=== PATIENT | female | born 1975 | race Caucasian/White ===

== ENCOUNTER 2020-07-21 07:10 | Day surgery (SDC) | payer OTHER ==
--- OUTSIDE RECORDS SUMMARY | 2020-07-21 07:13 | XMS REPORT | Continuity of Care Document ---
:1975 Author Organization [facility] t Address [address] [place] [address] Dr. Wu [address] [place] [address] Care Team Providers Name Role Phone Hoang NATARAJAN, K.H. Attending Clinician Payers Payer Name Policy Type Policy Number Effective Date Expiration Date S ource Problems This patient has no known problems. Allergies, Adverse Reactions, Alerts Allergy Allergy Status Severity Reaction(s) Onset Inactive Treating Comm ents Source Name Type Date Date Clinician erythrom DA Active MO 2018-0 [facility] [place] adhesive DA Active MO 2019-0 [facility] tape 06[facility]22 [facility] [place] pregabal DA Active MO 2018-0 [facility] in 06-22 [facility] [place] erythrom DA Active [facility] ycin 8-[facility] [place] TAPE DA Active [facility] [place] Medications This patient has no known medications. Procedures This patient has no known procedures. Encounters Start End Encounter Admission Attending Care Care Encounter Source Date/Time Date/Time Type Type Clinicians Facility Department ID 2020-07-12 2020-07-12 Telephone Hoang AZAVILA [id number] [id number] 00:00:00 00:00:00 [employer] [id number] Clear [id number] [place] [id number] Medical 0[address] Office Building Results Test Description Test Time Test Comments Results Result [facility] e Comments - PELVIS 2020-06-19 Patient Name: COMPLETE 10:52:00 YULISSA SMITH Unit No: [id number] EXAMS: CPT CODE: [id number] US PELVIS COMPLETE 57420 CLINICAL HISTORY: Left adnexal mass. COMPARISON: May 05, 2010. Patient also had recent computed tomography however, it is unavailable for comparison at this time. Real-time ultrasound examination of the pelvis was performed using transabdominal and endovaginal approach. Doppler evaluation of both ovaries was also performed. The uterus measures 6.7 x 4.3 x 4.4 cm in greatest dimensions with endometrium measuring 9 mm in AP dimension. There is no evidence of uterine fibroid or other significant uterine abnormality. The right ovary has been surgically removed. In the left adnexa, there is a 7.1 x 5.3 x 7.6 cm cystic mass with septation as well as some nodularity identified. Blood flow is identified in the left adnexa. Differential possibilities include cystic ovarian neoplasm such as cystadenoma. Possibility of complicated ovarian cyst or endometrioma cannot be categorically excluded. There is no significant free fluid in the pelvis. IMPRESSION: 1. 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 Less likely possibility would be that of complicated cyst or endometrioma. 2. Normal sonographic appearance of uterus and status post right oophorectomy. at 1052 Reported and signed by: Jak Bennett MD CC: MARYLIN DANIELS MD; Thomas Barber III, MD Technologist: Janelle Conner RDMS Probe: Trnscrbd D/ (1052) t.SDR.YOS Orig Print D/T: S: 06/19/2020 (1056) [facility] NAME: YULISSA SMITH TURLOCK Radiology Department PHYS: Thomas Plasencia III, MD [address] : 1975 AGE: 45 SEX: F [place] [address] LOC: Sánchez.RAD PHONE #: [phone] EXAM DATE: 06/19/2020 STATUS: PRE CLI FAX #: [phone] RAD NO: [id number] Page 1 Signed Report Patient Name: YULISSA SMITH Unit No: [id number] EXAMS: CPT CODE: [id number] US PELVIS COMPLETE 93116 <Continued> [facility] NAME: YULISSA SMITH MURPHY Radiology Department PHYS: Thomas Plasencia III, MD [address] : 1975 AGE: 45 SEX: F [place] [address] LOC: DayneRAD PHONE #: [phone] EXAM DATE: 06/19/2020 STATUS: PRE CLI FAX #: [phone] RAD NO: [id number] Page 2 Signed Report - DUP 2020-06-19 Patient Name: AB/PEL/SC/LTD 10:52:00 YULISSA SMITH [place]OCK Unit No: [id number] EXAMS: CPT CODE: [id number] DUP AB/PEL/SC/LTD 03394 CLINICAL HISTORY: Left adnexal mass. COMPARISON: May 05, 2010. Patient also had recent computed tomography however, it is unavailable for comparison at this time. Real-time ultrasound examination of the pelvis was performed using transabdominal and endovaginal approach. Doppler evaluation of both ovaries was also performed. The uterus measures 6.7 x 4.3 x 4.4 cm in greatest dimensions with endometrium measuring 9 mm in AP dimension. There is no evidence of uterine fibroid or other significant uterine abnormality. The right ovary has been surgically removed. In the left adnexa, there is a 7.1 x 5.3 x 7.6 cm cystic mass with septation as well as some nodularity identified. Blood flow is identified in the left adnexa. Differential possibilities include cystic ovarian neoplasm such as cystadenoma. Possibility of complicated ovarian cyst or endometrioma cannot be categorically excluded. There is no significant free fluid in the pelvis. IMPRESSION: 1. 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 Less likely possibility would be that of complicated cyst or endometrioma. 2. Normal sonographic appearance of uterus and status post right oophorectomy. at 1052 Reported and signed by: Jak Bennett MD CC: MARYLIN DANIELS MD; Thomas Barber III, MD Technologist: Janelle Conner RDMS Probe: Trnscrbd D/ (5382) t.SDR.YOS Orig Print D/T: S: 06/19/2020 (8423) [facility] NAME: MAGDAYULISSA MURPHY Radiology Department PHYS: Thomas Plasencia III, MD [address] : 1975 AGE: 45 SEX: F [place] [address] LOC: Sánchez.RAD PHONE #: [phone] EXAM DATE: 06/19/2020 STATUS: PRE CLI FAX #: [phone] RAD NO: [id number] Page 1 Signed Report Patient Name: MAGDAYULISSASEAN MURPHY Unit No: [id number] EXAMS: CPT CODE: [id number] DUP AB/PEL/SC/LTD 01511 <Continued> [facility] NAME: YULISSA SMITH Radiology Department PHYS: Thomas Plasencia III, MD [address] : 1975 AGE: 45 SEX: F [place] [address] LOC: F.RAD PHONE #: [phone] EXAM DATE: 06/19/2020 STATUS: PRE CLI FAX #: [phone] RAD NO: [id number] Page 2 Signed Report - US TRANSVAGINAL 2020-06-19 Patient Name: W/PELVIS 10:52:00 YULISSA SMITH Unit No: [id number] EXAMS: CPT CODE: [id number] US TRANSVAGINAL W/PELVIS 65324 CLINICAL HISTORY: Left adnexal mass. COMPARISON: May 05, 2010. Patient also had recent computed tomography however, it is unavailable for comparison at this time. Real-time ultrasound examination of the pelvis was performed using transabdominal and endovaginal approach. Doppler evaluation of both ovaries was also performed. The uterus measures 6.7 x 4.3 x 4.4 cm in greatest dimensions with endometrium measuring 9 mm in AP dimension. There is no evidence of uterine fibroid or other significant uterine abnormality. The right ovary has been surgically removed. In the left adnexa, there is a 7.1 x 5.3 x 7.6 cm cystic mass with septation as well as some nodularity identified. Blood flow is identified in the left adnexa. Differential possibilities include cystic ovarian neoplasm such as cystadenoma. Possibility of complicated ovarian cyst or endometrioma cannot be categorically excluded. There is no significant free fluid in the pelvis. IMPRESSION: 1. 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 Less likely possibility would be that of complicated cyst or endometrioma. 2. Normal sonographic appearance of uterus and status post right oophorectomy. at 1052 Reported and signed by: Jak Bennett MD CC: MARYLIN DANIELS MD; Thomas Barber III, MD Technologist: Janelle Conner RDMS Probe: [id number] Trnscrbd D/ (1052) t.SILVIARPhiYOS Orig Print D/T: S: 06/19/2020 (1056) [facility] NAME: YULISSA SMITH Radiology Department PHYS: Thomas Plasencia III, MD [address] : 1975 AGE: 45 SEX: F [place], [place] [address] LOC: DayneRAD PHONE #: [phone] EXAM DATE: 06/19/2020 STATUS: PRE CLI FAX #: [phone] RAD NO: [id number] Page 1 Signed Report Patient Name: YULISSA SMITH Unit No: [id number] EXAMS: CPT CODE: [id number] US TRANSVAGINAL W/PELVIS 62669 <Continued> [facility] NAME: YULISSA SMITH Radiology Department PHYS: Thomas Plasencia III, MD [address] : 1975 AGE: 45 SEX: F [place], [place] [address] LOC: DayneRAD PHONE #: [phone] EXAM DATE: 06/19/2020 STATUS: PRE CLI FAX #: [phone] RAD NO: [id number] Page 2 Signed Report OVARY W/WO 2019-07-23 TUBE,NON-NEOPLASTI 17:41:00 C ----RUN DATE: 07/26/19 [facility] PAGE 1 RUN TIME: 1455 Specimen Inquiry RUN USER: INTERFACE ----PATIENT: YULISSA SMITH LOC: DayneDSU U #: [id number] AGE/SX: 44/F ROOM: RE07[facility]22[facility]19[facility] DR: Thomas Barber III, MD : [birth year] BED: DIS: STATUS: PRE [facility] TLOC: ---- SPEC #: [id number] RECD: 07/22/19 STATUS: DELIA TEMPLETON #: [id number] HERNÁN: 07/22/19- SUBM DR: Thomas Barber III, MD ENTERED: 07/22/19 SP TYPE: EVELIN SUAZO DR: ORDERED: LEVEL IV CODES: [id number] - OVARY, NOS PROCEDURES: LEVEL IV (Incomplete) TISSUES: OVARY, NOS - RIGHT OVARY CLINICAL HISTORY 44 year old, pelvic pain, ovarian cyst (wpd) FINAL DIAGNOSIS Right ovary, oophorectomy: - ovarian parenchyma with serous cystadenofibroma CPT code(s): 08176 cooper/jayda dt: 07/23/19 GROSS DESCRIPTION ANATOMIC SOURCE OF TISSUE (per Requisition): Right ovary The specimen is received in a formalin-filled container, labeled with the patient's name and designated "right ovary". The specimen consists a 6 x 4.5 x 4.0 cm ovary with adhesed yellow fatty tissue on the surface. The ovary contains multiple off-white cysts ranging from 0.4 - 2.0 cm and containing clear or light brown, thin fluid. Several cysts contain off-white, firm, papillary lesions on the internal lining measuring up to 0.[address] sections of the cyst wall with the firm, papillary lesions are submitted in A1 - A6. hz/wpd 07/22/19 @ 1600 MICROSCOPIC DESCRIPTION The specimen consists of an ovary containing cysts and broad papillary structures lined by a single layer of serous epithelium without cytologic atypia. No atypia or malignancy is identified. cooper/jayda dt: 07/23/19 Signed Olivia Garcia 07/23/19 1741 ---- END OF REPORT UR HCG QUAL 2019-07-22 10:02:00 Test Item Value Reference Range Interpretation Comme nts UR HCG QUAL (test code = HCGQLU) NEGATIVE 1. Very dilute urine specimens, as indicated by a lowspecific gravity, may not contain rep resentative levels ofhCG. 2. False negative results may occur when the levels of hCGare below the sensitivity level of the test. If is st ill suspected, a first morningurine sp ecimen should be collected 48 ho urs later andtested. AB HIV 1 14:09:00 Test Item Value Reference Range Interpretation Comments AB HIV 1 2 (test NONREACTIVE NONREACTIVE Done by Tiffanie putnam [facility] code = [id number]) 4th Gen HIV Ag/Ab Combo Screen IS CONSENT FORM SIGNED FOR HIV TESTING? YCHEMISTRY 7 [id number] 13:12:00 Test Item Value Reference Range Interpretation Comments SODIUM (test code = NA) 142 mEq/L 135-145 N POTASSIUM (test code = K) 4.0 mEq/L 3.5-5.0 N CHLORIDE (test code = CL) 106 mEq/L 100-115 N CARBON DIOXIDE (test code = CO2) 27 mEq/L 22-31 N ANION GAP (test code = GAP) 12.70 10-20 N GLUCOSE (test code = GLU) 88 mg/dL 65-110 N BLOOD UREA NITROGEN (test code = 10 mg/dL 7-18 N BUN) GLOMERULAR FILTRATION RATE (test 68 ml/min >60 N code = GFR) CREATININE (test code = CREAT) 0.9 mg/dL 0.5-1.0 N CALCIUM (test code = CA) 8.5 mg/dL 8.4-10.2 N CBC W/AUTO [id number] 12:54:00 Test Item Value Reference Range Interpretation Comments WHITE BLOOD CELL (test code = WBC) 7.6 K/mm3 6.6-12.1 N RED BLOOD CELL (test code = RBC) 4.42 M/mm3 3.45-5.01 N HEMOGLOBIN (test code = HGB) 13.6 g/dL 10.7-13.9 N HEMATOCRIT (test code = HCT) 42.2 % 32.1-42.1 H MEAN CELL VOLUME (test code = MCV) 96 fL 84.1-94.8 H MEAN CELL HGB (test code = MCH) 30.8 pg 27-35 N MEAN CELL HGB CONCETRATION (test 32.2 gm/dL 32.2-34.1 N code = MCHC) RED CELL DISTRIBUTION WIDTH (test 12.6 % 12.4-16.5 N code = RDW) PLATELET COUNT (test code = PLT) 217 K/mm3 133-385 N IMMATURE PLATELET FRACTION (test 0.0 % 0.0-10.8 N code = IPF) MEAN PLATELET VOLUME (test code = 9.7 fl 9.1-12.7 N MPV) NEUTROPHIL % (test code = NT%) 52.8 % 56.5-79.4 L LYMPHOCYTE % (test code = LY%) 37.2 % 14.3-34.3 H MONOCYTE % (test code = MO%) 7.5 % 5.1-10.4 N EOSINOPHIL % (test code = EO%) 1.6 % 0.1-3.0 N BASOPHIL % (test code = BA%) 0.5 % 0.1-1.0 N NEUTROPHIL # (test code = NT#) 4.0 K/mm3 LYMPHOCYTE # (test code = LY#) 2.8 K/mm3 MONOCYTE # (test code = MO#) 0.6 K/mm3 EOSINOPHIL # (test code = EO#) 0.12 K/mm3 BASOPHIL # (test code = BA#) 0.0 K/mm3 RBC MORPHOLOGY REQUIRED (test code NORMAL NORMAL = RBCM) PLATELET MORPHOLOGY REQUIRED (test NORMAL NORMAL code = PLTMR) UR HCG [id number] 12:49:00 Test Item Value Reference Range Interpretation Comments UR HCG QUAL (test NEGATIVE 1. Very di lute urine code = HCGQLU) specimens, as indicated by a lowspecific g ravity, may not contain rep resentative levels ofhCG. 2 . False negative result s may occur when the levels of hCGare below the sensi tivity level of the test. If is still suspec shaka, a first morningurine sp ecimen should be colle cted 48 hours later and tested.
--- OUTSIDE RECORDS SUMMARY | 2020-07-21 07:13 | XMS REPORT | Summary of Care ---
:1975 Author Organization [facility] Address [address] [place] [address] Care Team Providers Name Role Phone Kaye Gupta MD Primary Care Provider Reason for Referral (DUARTE) Status Reason Specialty Diagnoses / Referred By Referred To Procedures Contact Contact New Request Endocrinology Diagnoses Low serum cortisol level Fatigue, unspecified type Candy Diabetes & Procedures CONSULT/REFERRAL ENDOCRINOLOGY Preferred Location: [facility] Marlee Restrepo MD [address] [place] [address] Reason for Visit Reason Comments REFERRAL Encounter Details Date Type Department Care Team Description 05/04/2020 Case Management [facility] Family Marlee Gupta , REFERRAL Medicine - Kesha NATARAJAN [address] [place] [address] Dr gregory [address] [place] [address] [place] [address] [place], [place] [phone] Allergies Active Allergy Reactions Severity Noted Date Comments Adhesive Tape-Silicones Hives 03/12/2016 Amitriptyline Other - See comments 07/20/2018 Made h eadaches worse Doxycycline Shortness of Breath 03/02/2020 Erythromycin Hives, Swelling 03/12/2016 Pregabalin Other - See comments 01/05/2017 Seirzur es Mushroom Unknown - See 01/29/2017 Allergy listed per comments nurses screen a nd pt's father - laila ag to confirm with pt, unknown reactio n. documented as of this encounter (statuses as of 05/04/2020) Medications Medication Sig Dispensed Refills Start Date End Date Status gabapentin 600 mg Take 600 mg by 0 Active tablet mouth 5 (five) times daily. albuterol 1.25 mg/3 Use 3 mL as 1 Box 11 07/02/2018 Active mL nebulizer solution directed every 6 (six) hours as needed for Wheezing. bumetanide 1 mg Take 1 tablet by 15 tablet 5 07/25/2019 Active tabletIndications: mouth every 2 Coronary artery (two) days. disease involving [place] coronary artery of [place] heart without angina pectoris, Essential hypertension, Dyslipidemia, ORTIZ (dyspnea on exertion), Family history of premature CAD diltiazem XR 120 mg Take 1 capsule by 30 capsule 11 10/07/2019 Active 24 hr capsule mouth every evening. atorvastatin 80 mg Take 1 tablet by 90 tablet 3 10/15/2019 Active tablet mouth every morning. aspirin 81 mg Take 1 tablet by 30 tablet 11 10/21/2019 Active chewable tablet mouth daily. CARTIA XT 240 mg 24 TAKE 1 CAPSULE BY 90 capsule 3 11/08/2019 Active hr capsule MOUTH EVERY MORNING HYDROcodone-acetamino TK 1 T PO BID. 0 10/22/2019 Active phen 7.5-325 mg per tablet Diclofenac Sodium 1 % BLAINE 2 GRAMS EXT AA 0 9 Active gel QID tiZANidine 4 mg TK 1 T PO TID 0 09/24/2019 Active tablet proMETHazine 25 mg TK 1 T PO Q 8 H 0 08/26/2019 Active tablet PRF NAUSEA OR VOM pantoprazole 40 mg EC 0 09/02/2019 Active tablet CLOPIDOGREL 75 mg TAKE 1 TABLET BY 90 tablet 2 11/26/2019 Active tablet MOUTH DAILY MONTELUKAST 10 mg TAKE 1 TABLET BY 30 tablet 11 11/26/2019 Active tabletIndications: MOUTH EVERY Allergic rhinitis, EVENING unspecified seasonality, unspecified trigger RANOLAZINE 1,000 mg TAKE 1 TABLET BY 60 tablet 5 11/26/2019 Active tablet MOUTH TWICE DAILY magnesium gluconate Take 27 mg by 0 Active 27 mg [place] MAGNESIUM mouth 3 (three) (MAG-G) tablet times daily. WIXELA INHUB 500-50 INHALE 1 PUFF BY 60 Each 11 12/27/2019 Active mcg/dose inhalation MOUTH EVERY 12 disk HOURS LEVALBUTEROL 0.63 USE 1 VIAL BY 75 mL 5 12/29/2019 Active mg/3 mL nebulizer NEBULATION THREE solutionIndications: TIMES DAILY Acute bacterial NEEDED FOR sinusitis, Asthmatic WHEEZING, bronchitis with acute SHORTNESS OF exacerbation, BREATH OR CHEST unspecified asthma TIGHTNESS severity, unspecified whether persistent losartan 25 mg Take 1 tablet by 90 tablet 3 01/19/2020 Active tabletIndications: mouth daily. Coronary artery disease involving [place] coronary artery of [place] heart with angina pectoris, Essential hypertension traZODone 100 mg Take one to two 180 tablet 1 01/25/2020 Active tabletIndications: tablets at night Insomnia due to as needed for medical condition insomnia diltiazem 120 mg 24 TK 1 C PO QPM 0 01/02/2020 Active hr capsule metoprolol succinate Take 1 tablet by 30 tablet 6 02/08/2020 Active XL 25 mg 24 hr mouth 2 (two) tabletIndications: times daily. Essential hypertension ISOSORBIDE TAKE 1 TABLET BY 90 tablet 0 02/17/2020 A ctive MONONITRATE 120 mg 24 MOUTH EVERY DAY IN hr tabletIndications: THE MORNING Morbid obesity with body mass index of 40.0-49.9, Coronary artery disease involving autologous artery coronary bypass graft without angina pectoris busPIRone 5 mg Take 4 tablets by 360 tablet 2 02/17/2020 Active tabletIndications: mouth three times Generalized anxiety per day disorder nitroglycerin Place 1 tablet 1 Bottle 3 02/22/2020 Active (NITROSTAT) 0.4 mg under the tongue sublingual every 5 (five) tabletIndications: minutes as needed Coronary artery for Chest pain. disease involving [place] coronary artery of [place] heart with angina pectoris TOPIRAMATE 50 mg TAKE 3 TABLETS BY 540 tablet 3 03/30/2020 Active tabletIndications: MOUTH TWICE DAILY Migraine without aura and without status migrainosus, not intractable PRIMIDONE 50 mg TAKE 1 TABLET BY 180 tablet 3 03/30/2020 Active tabletIndications: MOUTH TWICE DAILY Migraine without aura and without status migrainosus, not intractable documented as of this encounter (statuses as of 05/04/2020) Active Problems Problem Noted Date Low serum cortisol level 05/04/2020 Essential hypertension 10/30/2019 Other hyperlipidemia 10/30/2019 Vertigo 03/31/2019 Amenorrhea 02/08/2019 Trigger finger of right thumb 11/27/2018 Radial styloid tenosynovitis 11/27/2018 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 Infection of skin due to methicillin resistant Staphyl ococcus aureus 01/04/2018 (MRSA) POTS (postural orthostatic tachycardia syndrome) 12/04 TIA (transient ischemic attack) 09/27/2017 Glaucoma suspect of both eyes 03/07/2017 Congenital nasolacrimal duct obstruction, bilateral Ischemic chest pain 01/27/2017 Chest pain 01/27/2017 Colon polyps 01/04/2017 Pseudoseizures 01/04/2017 Shaking 01/04/2017 Depression 01/04/2017 Insomnia 01/01/2017 JOSE on CPAP 01/01/2017 Morbid obesity with body mass index of 40.0-49.9 11/13 CAD (coronary artery disease) Spinal stenosis Atherosclerosis of artery Bulging lumbar disc DC (mitral incompetence) Polycystic ovarian disease GERD (gastroesophageal reflux disease) Anxiety Agoraphobia Panic disorder HTN (hypertension) Gastric polyp Asthma Overview: As a child Allergic rhinitis documented as of this encounter (statuses as of 05/04/2020) Resolved Problems Problem Noted Date Resolved Date Nicotine use disorder 02/08/2019 04/20/2019 Overview: vaping Postprandial vomiting 01/04/2017 01/19/2018 documented as of this encounter (statuses as of 05/04/2020) Immunizations Name Administration Dates Next Due Influenza Virus Vaccine Quad IM 3+ YRS 10/26/2018 Influenza Virus Vaccine Quad IM Multi-dose 6+ MO 09/10/2017 Pneumococcal Polysaccharide, PPSV23 (PNEUMOVAX) 01/09/2017 TDAP (ADACEL) VACCINE 01/09/2017 documented as of this encounter Social History Tobacco Use Types Packs/Day Years Used Date Former Smoker Cigarettes 0.5 15 Quit: 01/2017 Smokeless Tobacco: Never Used Qu it: 11/30/2014 Comments: quit tobacco in 03/2018, quit v aping too 03/2019 Alcohol Use Drinks/Week oz/Week Comments No 0 Standard drinks or equivalent 0.0 Sex Assigned at Date Recorded Not on file Job Start Date Occupation Industry Not on file Not on file Not on file Travel History Travel Start Travel End No recent travel history available. COVID-19 Exposure Response Date Recorded In the last month, have you been in contact with No / Unsure 05/02/2020 1:55 PM CDT someone who was confirmed or suspected to have Coronavirus / COVID-19? documented as of this encounter Last Filed Vital Signs Not on filedocumented in this encounter Plan of Treatment Date Type Specialty Care Team Description 06/15/2020 Office Visit Pulmonary Disease Nino Bennett, DO [address] [place] [address] 06/16/2020 Office Visit Cardiology Justo Bolton MD [address] [place], [place] [address] 07/06/2020 Office Visit Neurology Anum Connor A [address] [place] [address] [phone] 08/16/2020 Office Visit Obstetrics & Gynecology Marco Antonio Robledo MD [address] [facility] [address] [place], [place] [address] Health Maintenance Due Date Last Done Comments Breast Cancer Screening (MAMMOGRAM) 02/23/2020 02/22/2019, 02/20/2018, 01/17/2017 PAP SMEAR 06/21/2020 06/21/2019, 06/21/2019, 08/01/2016 (Previously completed) INFLUENZA VACCINE (Season Ended) 2020 10/26/2018, 10/2017 Depression Screening 04/19/2021 04/19/2020, 12/23/2019 DTaP,Tdap,and Td Vaccines (2 - Td) 01/09/2027 01/09/2017 PNEUMOCOCCAL 0-64 YEARS COMBINED Completed 01/09/2017 SERIES documented as of this encounter Goals Goal Patient Goal Associated Recent Patient-Stated? Author Type Problems Progress 5 lb weight General Yes [place], loss by next Marlee Restrepo MD visit documented as of this encounter Results Not on filedocumented in this encounter Visit Diagnoses Diagnosis Low serum cortisol level - Primary Glucocorticoid deficiency Fatigue, unspecified type documented in this encounter Insurance Payer Benefit Plan Subscriber ID Effective Phone Address Typ e / Group Dates AETNA - AETNA [id number] 2019-Prese [address] Me dicare Adv [place]NAGED MEDICARE [place]V [place] [id number] [place] [address] documented as of this encounter
--- OUTSIDE RECORDS SUMMARY | 2020-07-21 07:14 | XMS REPORT | Summary of Care ---
:1975 Author Organization [facility] Address [address] [place] [id number] Care Team Providers Name Role Phone Kaye Gupta MD Primary Care Provider Reason for Visit Reason Comments Appointment sooner appt / hfu Encounter Details Date Type Department Care Team Description 04/28/2020 Telephone [facility] Anum Connor A NP Appointment (sooner Neurology, [address] appt / hfu) [address], [address] [place] [address] [place] [address] Allergies Active Allergy Reactions Severity Noted Date Comments Adhesive Tape-Silicones Hives 03/12/2016 Amitriptyline Other - See comments 07/20/2018 Made h eadaches worse Doxycycline Shortness of Breath 03/02/2020 Erythromycin Hives, Swelling 03/12/2016 Pregabalin Other - See comments 01/05/2017 Seirzur es Mushroom Unknown - See 01/29/2017 Allergy listed per comments nurses screen a nd pt's father - u nable to confirm with pt, unknown reactio n. documented as of this encounter (statuses as of 05/05/2020) Medications Medication Sig Dispensed Refills Start Date [...] 2 Coronary artery (two) days. disease involving [place] coronary artery of [place] heart without angina pectoris, Essential hypertension, Dyslipidemia, [...] 27 mg by 0 Active 27 mg JACKSON MAGNESIUM mouth 3 (three) (MAG-G) tablet times [...] tabletIndications: mouth daily. Coronary artery disease involving [place] coronary artery of [place] heart with angina pectoris, Essential hypertension traZODone [...] Coronary artery for Chest pain. disease involving [place] coronary artery of [place] heart with angina pectoris TOPIRAMATE 50 mg TAKE 3 TABLETS BY 540 tablet 3 03/30/2020 Active tabletIndications: MOUTH TWICE DAILY Migraine without aura and without status migrainosus, not intractable PRIMIDONE 50 mg TAKE 1 TABLET BY 180 tablet 3 03/30/2020 Active tabletIndications: MOUTH TWICE DAILY Migraine without aura and without status migrainosus, not intractable documented as of this encounter (statuses as of 05/05/2020) Active Problems Problem Noted Date Low serum [...] stenosis Atherosclerosis of artery Bulging lumbar disc NE (mitral incompetence) Polycystic ovarian disease GERD (gastroesophageal reflux disease) Anxiety Agoraphobia Panic disorder HTN (hypertension) Gastric polyp Asthma Overview: As a child Allergic rhinitis documented as of this encounter (statuses as of 05/05/2020) Resolved Problems Problem Noted Date Resolved Date Nicotine use disorder 02/08/2019 04/20/2019 Overview: vaping Postprandial vomiting 01/04/2017 01/19/2018 documented as of this encounter (statuses as of 05/05/2020) Immunizations Name Administration Dates Next Due Influenza [...] Treatment Date Type Specialty Care Team Description 05/08/2020 Office Visit Endocrinology Diabetes & Landy aBtes MD Metabolism [address] [facility] [address] [place], [place] [address] [phone] 06/15/2020 Office Visit Pulmonary Disease Nino Bennett, DO [address] [place] [phone] 06/16/2020 Office Visit Cardiology Justo Bolton MD [address] [facility] [address] [place] [address] [place] [phone] 07/06/2020 Office Visit Neurology Anum Connor A [address] [phone] 08/16/2020 Office Visit Obstetrics & Gynecology Marco Antonio Robledo MD [address] [facility] [address] [place], [place] [address] Health Maintenance Due Date Last Done [...] Problems Progress 5 lb weight General Yes Candy, loss by next Marlee Restrepo MD visit documented as of this encounter Results Not on filedocumented in this encounter Insurance Payer Benefit Plan Subscriber ID Effective Phone Address Typ e / Group Dates AETNA - AETNA [id number] 2019-Jose [address] Me ahn Adv MANAGED MEDICARE ADV [place] [id number] [place] [address] documented as of this encounter
--- OUTSIDE RECORDS SUMMARY | 2020-07-21 07:14 | XMS REPORT | Summary of Care ---
:1975 Author Organization [facility] Address [address] [place] [address] Care Team Providers Name Role Phone Kaye Gupta MD Primary Care Provider Reason for Visit Reason Comments New Patient pt confirm all meds and phar yamilet. pt stated hair falling, dizzy, requesting for erika, pt s tated manpreet diagnosed and been taking to many other meds and would like to check kidney, (DUARTE) Status Reason Specialty Diagnoses / Referred By Referred To Procedures Contact Contact Authorized Endocrinology Diagnoses Low serum cortisol level Fatigue, unspecified type Candy Diabetes & Procedures CONSULT/REFERRAL ENDOCRINOLOGY Preferred Location: [facility] Marlee Restrepo MD Metabolism [address] [place] [address] [place] [address] Encounter Details Date Type Department Care Team Description 05/08/2020 Office Visit [facility] Landy Bates Hypocortisol emia (Primary Dx); EndocrinologyKaye MD Hair loss; [facility] [address], Fatigue, unspecified type; [address], [facility] [address] Prinzmetal variant angina [address] [place] [address] [place], [place] [phone] Allergies Active Allergy Reactions Severity Noted Date Comments Adhesive Tape-Silicones Hives 03/12/2016 Amitriptyline Other - See comments 07/20/2018 Made h eadaches worse Doxycycline Shortness of Breath 03/02/2020 Erythromycin Hives, Swelling 03/12/2016 Pregabalin Other - See comments 01/05/2017 Seirzur chantel Mushroom Unknown - See 01/29/2017 Allergy listed per comments nurses screen a nd pt's father - laila ag to confirm with pt, unknown reactio n. documented as of this encounter (statuses as of 05/08/2020) Medications Medication Sig Dispensed Refills Start Date [...] 2 Coronary artery (two) days. disease involving [place] coronary artery of [place] heart without angina pectoris, Essential hypertension, Dyslipidemia, [...] 11 10/21/2019 Active chewable tablet mouth daily. HYDROcodone-acetamino TK 1 T PO BID. 0 [...] 27 mg by 0 Active 27 mg MARSHALL MAGNESIUM mouth 3 (three) (MAG-G) tablet times [...] tabletIndications: mouth daily. Coronary artery disease involving [place] coronary artery of [place] heart with angina pectoris, Essential hypertension traZODone [...] Coronary artery for Chest pain. disease involving [place] coronary artery of [place] heart with angina pectoris TOPIRAMATE 50 mg TAKE 3 TABLETS BY 540 tablet 3 03/30/2020 Active tabletIndications: MOUTH TWICE DAILY Migraine without aura and without status migrainosus, not intractable PRIMIDONE 50 mg TAKE 1 TABLET BY 180 tablet 3 03/30/2020 Active tabletIndications: MOUTH TWICE DAILY Migraine without aura and without status migrainosus, not intractable CARTIA XT 240 mg 24 TAKE 1 CAPSULE BY 90 capsule 1 05/05/2020 Active hr capsule MOUTH EVERY MORNING documented as of this encounter (statuses as of 05/08/2020) Active Problems Problem Noted Date Low serum [...] with body mass index of 40.0-49.9 11/13 Prinzmetal variant angina 12/01/2015 CAD (coronary artery disease) Spinal stenosis Atherosclerosis of artery Bulging lumbar disc ME (mitral incompetence) Polycystic ovarian disease GERD (gastroesophageal reflux disease) Anxiety Agoraphobia Panic disorder HTN (hypertension) Gastric polyp Asthma Overview: As a child Allergic rhinitis documented as of this encounter (statuses as of 05/08/2020) Resolved Problems Problem Noted Date Resolved Date Nicotine use disorder 02/08/2019 04/20/2019 Overview: vaping Postprandial vomiting 01/04/2017 01/19/2018 documented as of this encounter (statuses as of 05/08/2020) Immunizations Name Administration Dates Next Due Influenza [...] been in contact with No / Unsure 05/08/2020 2:36 PM CDT someone who was confirmed or suspected to have Coronavirus / COVID-19? documented as of this encounter Last Filed Vital Signs Vital Sign Reading Time Taken Comments Blood Pressure 122/85 05/08/2020 3:15 PM CDT Pulse 67 05/08/2020 3:13 PM CDT Temperature 36.7 C (98 F) 05/08/2020 3:13 PM CDT Respiratory Rate - - Oxygen Saturation 99% 05/08/2020 3:13 PM CDT Inhaled Oxygen Concentration - - Weight 113.9 kg (251 lb) 05/08/2020 3:13 PM CDT Height 152.4 cm (5') 05/08/2020 3:13 PM CDT Body Mass Index 49.02 05/08/2020 3:13 PM CDT documented in this encounter Progress Notes Landy Bates MD - 05/08/2020 3:00 PM CDT Cc: Chief Complaint Patient presents with New Patient pt confirm all meds and pharmacy. pt stated hair falling, dizzy, requesting for erika, pt statedben diagnosed and been taking to many other meds and would like to check kidney, Yanci Man is a 44 year old female. Patient known for hypertension, asthma, depression and obesity had a recent head trauma complain of extreme fatigue, sudden scalp hair loss, her menstrual cycles are regular. She is on multiple medications under multiple physician care. Allergies Yanci is allergic to adhesive tape-silicones; amitriptyline; doxycycline; erythromycin; lyrica [pregabalin]; and mushroom. Medications Outpatient Medications Prior to Visit Medication Sig Dispense Refill CARTIA XT 240 mg 24 hr capsule TAKE 1 CAPSULE BY MOUTH EVERY MORNING 90 capsule 1 PRIMIDONE 50 mg tablet TAKE 1 TABLET BY MOUTH TWICE DAILY 180 tablet 3 TOPIRAMATE 50 mg tablet TAKE 3 TABLETS BY MOUTH TWICE DAILY 540 tablet 3 nitroglycerin (NITROSTAT) 0.[address] 1 tablet under the tongue every 5 (five) minutes as needed for Chest pain. 1 Bottle 3 busPIRone 5 mg tablet Take 4 tablets by mouth three times per day 360 tablet 2 ISOSORBIDE MONONITRATE 120 mg 24 hr tablet TAKE 1 TABLET BY MOUTH EVERY DAY IN THE MORNING 90 tablet 0 metoprolol succinate XL 25 mg 24 hr tablet Take 1 tablet by mouth 2 (two) times daily. 30 tablet6 diltiazem 120 mg 24 hr capsule TK 1 C PO QPM traZODone 100 mg tablet Take one to two tablets at night as needed for insomnia 180 tablet 1 losartan 25 mg tablet Take 1 tablet by mouth daily. 90 tablet 3 LEVALBUTEROL 0.63 mg/3 mL nebulizer solution USE 1 VIAL BY NEBULATION THREE TIMES DAILY NEEDED FOR WHEEZING, SHORTNESS OF BREATH OR CHEST TIGHTNESS 75 mL 5 WIXELA INHUB 500-50 mcg/dose inhalation disk INHALE 1 PUFF BY MOUTH EVERY 12 HOURS 60 Each 11 magnesium gluconate 27 mg MARSHALL MAGNESIUM (MAG-G) tablet Take 27 mg by mouth 3 (three) times daily. CLOPIDOGREL 75 mg tablet TAKE 1 TABLET BY MOUTH DAILY 90 tablet 2 MONTELUKAST 10 mg tablet TAKE 1 TABLET BY MOUTH EVERY EVENING 30 tablet 11 RANOLAZINE 1,000 mg tablet TAKE 1 TABLET BY MOUTH TWICE DAILY 60 tablet 5 Diclofenac Sodium 1 % gel BLAINE 2 GRAMS EXT AA QID 0 HYDROcodone-acetaminophen 7.5-325 mg per tablet TK 1 T PO BID. 0 pantoprazole 40 mg EC tablet 0 proMETHazine 25 mg tablet TK 1 T PO Q 8 H PRF NAUSEA OR VOM 0 tiZANidine 4 mg tablet TK 1 T PO TID 0 aspirin 81 mg chewable tablet Take 1 tablet by mouth daily. 30 tablet 11 atorvastatin 80 mg tablet Take 1 tablet by mouth every morning. 90 tablet 3 diltiazem XR 120 mg 24 hr capsule Take 1 capsule by mouth every evening. 30 capsule 11 bumetanide 1 mg tablet Take 1 tablet by mouth every 2 (two) days. 15 tablet 5 albuterol 1.25 mg/3 mL nebulizer solution Use 3 mL as directed every 6 (six) hours as needed forWheezing. 1 Box 11 gabapentin 600 mg tablet Take 600 mg by mouth 5 (five) times daily. No facility-administered medications prior to visit. Histories Past Medical History: Diagnosis Date Allergic rhinitis Amenorrhea 02/08/2019 Anemia Asthma As a child CAD (coronary artery disease) Depression Endometriosis GERD (gastroesophageal reflux disease) HTN (hypertension) Hyperlipidemia Infection of skin due to methicillin resistant Staphylococcus aureus (MRSA) 01/04/2018 Leiomyoma of uterus ME (mitral incompetence) 2014 JOSE (obstructive sleep apnea) Panic disorder Pap smear abnormality of cervix 1999 s/p LEEP PCOS (polycystic ovarian syndrome) POTS (postural orthostatic tachycardia syndrome) 12/04/2017 Prediabetes 01/23/2018 Prinzmetal angina Seizures Spinal stenosis Urinary incontinence stress incont only Past Surgical History: Procedure Laterality Date ABDOMINAL SCAR REVISION 1997 repair and tummy tuck SECTION [id number] COLONOSCOPY 10/25/2019 COLPOSCOPY,CERVIX W/ADJ VAG,W/LOOP BX CONIZATION CERVIX,LOOP ELECTRD 1999 DEQUERVAIN'S CONTRACTURE RELEASE Right 02/26/2019 Surgeon: Thomas Ware MD; [facility] DILATION AND CURETTAGE (SHX) 1997 DRAIN OVARIAN ABSCESS,ABD APPRCH ENDOSCOPIC CARPAL TUNNEL RELEASE Right 02/26/2019 Surgeon: Thomas Ware MD; Location: [facility] ESOPHAGOGASTRODUODENOSCOPY HERNIA REPAIR Right 2004 LAPAROSCOPIC ADJUSTABLE GASTRIC BANDING 01/2000 LAPAROSCOPIC GASTRIC BAND REMOVAL 2017 OPEN CARPAL TUNNEL RELEASE Left 04/06/2018 Surgeon: Gautam Zamorano MD; Location: [facility] CO PATIENT HAS A CORONARY ARTERY STENT 2015 x 3 TEAR DUCT SYSTEM SURG UNLISTED TENDON REPAIR Right ankle TRIGGER FINGER RELEASE Right 02/26/2019 Surgeon: Thomas Ware MD; Location: [facility] Social History Socioeconomic History Marital status: Spouse name: Gene Number of children: 1 Years of education: 16 Highest education level: Not on file Occupational History 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 Social Needs Financial resource strain: Not on file Food insecurity: Worry: Not on file Inability: Not on file Transportation needs: Medical: Not on file Non-medical: Not on file Tobacco Use Smoking status: Former Smoker Packs/day: 0.50 Years: 15.00 Pack years: 7.50 Types: Cigarettes Last attempt to quit: 01/2017 Years since quittin.3 Smokeless tobacco: Never Used Tobacco comment: quit tobacco in 03/2018, quit vaping too 03/2019 Substance and Sexual Activity Alcohol use: No Alcohol/week: 0.0 standard drinks Drug use: No Sexual activity: Yes Partners: Male control/protection: None Comment: last intercourse in january 2019 Lifestyle Physical activity: Days per week: Not on file Minutes per session: Not on file Stress: Not on file Relationships Social connections: Talks on phone: Not on file Gets together: Not on file Attends adventism service: Not on file Active member of club or organization: Not on file Attends meetings of clubs or organizations: Not on file Relationship status: Not on file Intimate partner violence: Fear of current or ex partner: Not on file Emotionally abused: Not on file Physically abused: Not on file Forced sexual activity: Not on file Other Topics Concern Service Not Asked Blood Transfusions Not Asked Caffeine Concern Not Asked Occupational Exposure Not Asked Hobby Hazards Not Asked Sleep Concern Not Asked Stress Concern Not Asked Weight Concern Not Asked Special Diet Not Asked Back Care Not Asked Exercise Not Asked Bike Helmet Not Asked Seat Belt Yes Self-Exams Not Asked Social History Narrative Lives at home with Christianity Preference: Roman Catholic Family History Problem Relation Age of Onset Cancer Maternal Aunt ovarian, breast x's 2 Breast Cancer Maternal Aunt 40s, unilateral. Recurrence in 50s Ovarian Cancer Maternal Aunt same aunt who has breast cancer, 40s Arthritis Mother Asthma Mother Cancer Mother colon Depression Mother Hypertension Mother Kidney disease Mother Miscarriages / Stillbirths Mother Stroke Mother Thyroid Mother Uterine Cancer Mother 40s Colon Cancer Mother 40s, recurrence in 60s Coronary Heart Disease Father Diabetes Father Heart Father Cancer Maternal Grandmother Asthma Maternal Grandmother Arthritis Maternal Grandmother Cataracts Maternal Grandmother Breast Cancer Maternal Grandmother Diabetes Paternal Grandmother Cancer Paternal Grandfather Coronary Heart Disease Paternal Grandfather Stroke Paternal Grandfather Cataracts Maternal Grandfather defects NoFHx Genetic NoFHx High cholesterol NoFHx Mental retardation NoFHx Neurological NoFHx Osteoporosis NoFHx Psychiatry NoFHx Other - see comments NoFHx Review of Systems Constitutional: Positive for fatigue and weight gain. HENT: Negative. Eyes: Negative. Respiratory: Negative. Cardiovascular: Negative. Gastrointestinal: Negative. Musculoskeletal: Positive for back pain. Skin: Negative. Neurological: Negative. Psychiatric/Behavioral: Negative. Endocrine: Endocrine negativePositive for weight gain. Vital Signs BP 122/85 (BP Location: Left arm) | Pulse 67 | Temp 36.7 C (98 F) | Ht 5' (1.524 m) | Wt 251lb (113.9 kg) | LMP 04/10/2020 (Approximate) | SpO2 99% | BMI 49.02 kg/m Physical Exam Constitutional: She is oriented to person, place, and time. She appears well- developed and well-nourished. Eyes: Pupils are equal, round, and reactive to light. Conjunctivae and EOM are normal. Left eye exhibits no discharge. No scleral icterus. Neck: Normal range of motion. Neck supple. No JVD present. No tracheal deviation present. No thyromegaly present. Cardiovascular: Normal rate, regular rhythm, normal heart sounds and intact distal pulses. Exam reveals no gallop and no friction rub. No murmur heard. Pulmonary/Chest: Effort normal and breath sounds normal. No respiratory distress. She has no wheezes. She has no rales. She exhibits no tenderness. Abdominal: Soft. Bowel sounds are normal. She exhibits no distension and no mass. There is no tenderness. There is no rebound and no guarding. No hernia. Musculoskeletal: Normal range of motion. She exhibits no edema, tenderness or deformity. Lymphadenopathy: She has no cervical adenopathy. Neurological: She is alert and oriented to person, place, and time. She displays normal reflexes. Nocranial nerve deficit or sensory deficit. She exhibits normal muscle tone. Coordination normal. Skin: Skin is warm and dry. Capillary refill takes less than 2 seconds. No rash noted. No erythema. No pallor. Psychiatric: She has a normal mood and affect. Her behavior is normal. Judgment and thought content normal. Assessment/Plan Yanci was seen today for new patient. Diagnoses and all orders for this visit: Hypocortisolemia - ADRENOCORTICOTROPIC HORMONE; Future Hair loss - HEPATIC FUNCTION PANEL (99740) (ALB,T.PRO,BILI T,BU/BC,ALT,AST,ALK PHOS); Future - IRON; Future - HEAVY METALS PANEL, BLOOD; Future Fatigue, unspecified type - SEDIMENTATION RATE; Future - CREATINE KINASE; Future - URIC ACID; Future Prinzmetal variant angina - METANEPHRINES, PLASMA; Future Patient for ACTH Stim test. documented in this encounter Plan of Treatment Date Type Specialty Care Team Description 05/09/2020 Office Visit Neurology Aunm Connor A [address] [phone] 05/11/2020 Nurse Visit Endocrinology Diabetes & Nurse, Bls Cbc E ndo Metabolism 05/22/2020 Office Visit Endocrinology Diabetes & Kirill Vasquez, FRUIT [employer] FARMWORKER Metabolism [address] [place] [phone] 06/15/2020 Office Visit Pulmonary Disease Nino Bennett, DO [address] [place] [phone] 06/16/2020 Office Visit Cardiology Justo Bolton MD [address] [place] [address] [place] [address] [phone] 07/06/2020 Office Visit Neurology Anum Connor A NP [address] [place] [phone] 08/16/2020 Office Visit Obstetrics & Gynecology Mraco Antonio Robledo MD [address] [place] [address] [place] [address] 15 Name Type Priority Associated Diagnoses Order S chedule ADRENOCORTICOTROPIC HORMONE LAB Routine Hypocortisole norman Expected: 05/09/2020, Expires: 05/08/2021 METANEPHRINES, PLASMA LAB Routine Prinzmetal variant angina Expected: 05/09/2020, Expires: 05/08/2021 SEDIMENTATION RATE LAB Routine Fatigue, unspecified t ype Expected: 05/09/2020, Expires: 05/08/2021 CREATINE KINASE LAB Routine Fatigue, unspecified type Expected: 05/09/2020, Expires: 05/08/2021 URIC ACID LAB Routine Fatigue, unspecified type Ex pected: 05/09/2020, Expires: 05/08/2021 HEPATIC FUNCTION PANEL LAB Routine Hair loss Expec shaka: (94885) (ALB,T.PRO,BILI 08/2020, T,BU/BC,ALT,AST,ALK PHOS) Ex uriel: 05/08/2021 IRON LAB Routine Hair loss Expected: 05/09/2020, Expires: 05/08/2021 HEAVY METALS PANEL, BLOOD LAB Routine Hair loss Ex pected: 05/09/2020, Expires: 05/08/2021 Health Maintenance Due Date Last Done Comments [...] Problems Progress 5 lb weight General Yes [place], loss by next Marlee Restrepo MD visit documented as of this encounter Results Not on filedocumented in this encounter Visit Diagnoses Diagnosis Hypocortisolemia - Primary Glucocorticoid deficiency Hair loss Alopecia, unspecified Fatigue, unspecified type Prinzmetal variant angina Prinzmetal angina documented in this encounter Insurance Payer Benefit Plan Subscriber ID Effective Phone Address Typ e / Group Dates AETNA - AETNA [id number] 2019-[address] Me dicare Adv MANAGED MEDICARE [place] [id number] [place] [address] documented as of this encounter"
--- OUTSIDE RECORDS SUMMARY | 2020-07-21 07:14 | XMS REPORT | Summary of Care ---
:1975 Author Organization [facility] Address [address] [place] [address] Care Team Providers Name Role Phone Kaye Gupta MD Primary Care Provider Reason for Visit Reason Comments Refill Request Encounter Details Date Type Department Care Team Description 05/03/2020 Refill [facility] Cardiology- Se anthony Horn, Refill Request [facility] [address] [place] [phone] [place] [address] [place] [address] Allergies Active Allergy Reactions Severity Noted Date Comments Adhesive Tape-Silicones Hives 03/12/2016 Amitriptyline Other - See comments 07/20/2018 Made h eadaches worse Doxycycline Shortness of Breath 03/02/2020 Erythromycin Hives, Swelling 03/12/2016 Pregabalin Other - See comments 01/05/2017 Seirzur es Mushroom Unknown - See 01/29/2017 Allergy listed per comments nurses screen a nd pt's father - u laurelle to confirm with pt, unknown reactio n. documented as of this encounter (statuses as of 05/05/2020) Medications Medication Sig Dispensed Refills Start Date End Date Status gabapentin 600 mg Take 600 mg by 0 Active tablet mouth 5 (five) times daily. albuterol 1.25 mg/3 Use 3 mL as 1 Box 11 07/02/2018 Active mL nebulizer directed every solution 6 (six) hours as needed for Wheezing. bumetanide 1 mg Take 1 tablet 15 tablet 5 07/25/2019 Active tabletIndications: by mouth every Coronary artery 2 (two) days. disease involving [place] coronary artery of [place] heart without angina pectoris, Essential hypertension, Dyslipidemia, ORTIZ (dyspnea on exertion), Family history of premature CAD diltiazem XR 120 mg Take 1 capsule 30 capsule 11 10/07/2019 Active 24 hr capsule by mouth every evening. atorvastatin 80 mg Take 1 tablet 90 tablet 3 10/15/2019 Active tablet by mouth every morning. aspirin 81 mg Take 1 tablet 30 tablet 11 10/21/2019 A ctive chewable tablet by mouth daily. HYDROcodone-acetami TK 1 T PO BID. 0 10/22/2019 Active nophen 7.5-325 mg per tablet Diclofenac Sodium 1 BLAINE 2 GRAMS EXT 0 10/22/2019 Active % gel AA QID tiZANidine 4 mg TK 1 T PO TID 0 09/24/2019 Active tablet proMETHazine 25 mg TK 1 T PO Q 8 H 0 08/26/2019 Active tablet PRF NAUSEA OR VOM pantoprazole 40 mg 0 09/02/2019 Active EC tablet CLOPIDOGREL 75 mg TAKE 1 TABLET 90 tablet 2 11/26/2019 Active tablet BY MOUTH DAILY MONTELUKAST 10 mg TAKE 1 TABLET 30 tablet 11 11/26/2019 Active tabletIndications: BY MOUTH EVERY Allergic rhinitis, EVENING unspecified seasonality, unspecified trigger RANOLAZINE 1,000 mg TAKE 1 TABLET 60 tablet 5 11/26/2019 Active tablet BY MOUTH TWICE DAILY magnesium gluconate Take 27 mg by 0 Active 27 mg BLACKFEET mouth 3 (three) MAGNESIUM (MAG-G) times daily. tablet WIXELA INHUB 500-50 INHALE 1 PUFF 60 Each 11 12/27/2019 Active mcg/dose inhalation BY MOUTH EVERY disk 12 HOURS LEVALBUTEROL 0.63 USE 1 VIAL BY 75 mL 5 12/29/2019 Active mg/3 mL nebulizer NEBULATION solutionIndications THREE TIMES : Acute bacterial DAILY NEEDED sinusitis, FOR WHEEZING, Asthmatic SHORTNESS OF bronchitis with BREATH OR CHEST acute exacerbation, TIGHTNESS unspecified asthma severity, unspecified whether persistent losartan 25 mg Take 1 tablet 90 tablet 3 01/19/2020 Active tabletIndications: by mouth daily. Coronary artery disease involving [place] coronary artery of [place] heart with angina pectoris, Essential hypertension traZODone 100 mg Take one to two 180 tablet 1 01/25/2020 Active tabletIndications: tablets at Insomnia due to night as needed medical condition for insomnia diltiazem 120 mg 24 TK 1 C PO QPM 0 01/02/2020 Active hr capsule metoprolol Take 1 tablet 30 tablet 6 02/08/2020 Acti ve succinate XL 25 mg by mouth 2 24 hr (two) times tabletIndications: daily. 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 [place] coronary artery of [place] heart with angina pectoris TOPIRAMATE 50 mg TAKE 3 TABLETS 540 tablet 3 03/30/2020 Active tabletIndications: BY MOUTH TWICE Migraine without DAILY aura and without status migrainosus, not intractable PRIMIDONE 50 mg TAKE 1 TABLET 180 tablet 3 03/30/2020 Active tabletIndications: BY MOUTH TWICE Migraine without DAILY aura and without status migrainosus, not intractable CARTIA XT 240 mg 24 TAKE 1 CAPSULE 90 capsule 1 05/05/2020 Active hr capsule BY MOUTH EVERY MORNING CARTIA XT 240 mg 24 TAKE 1 CAPSULE 90 capsule 3 11/08/2019 Discontinued hr capsule BY MOUTH EVERY 0 MORNING documented as of this encounter (statuses [...] stenosis Atherosclerosis of artery Bulging lumbar disc [place] (mitral incompetence) Polycystic ovarian disease GERD (gastroesophageal [...] 05/08/2020 Office Visit Endocrinology Diabetes & Landy Bates MD [facility] [address] [address] [phone] 05/09/2020 Office Visit Neurology Anum Connor A [address] [phone] 06/15/2020 Office Visit Pulmonary Disease Aleida Bennettestebanmario, [address] [phone] 06/16/2020 Office Visit Cardiology Justo Bolton MD [facility] [address] [place] [phone] 07/06/2020 Office Visit Neurology Anum Connor A BRICKLAYER APPRENTICE [address] [place] [phone] 08/16/2020 Office Visit Obstetrics & Gynecology Marco Antonio Robledo MD 146 [facility] 208 [place], [place] [address] [phone] Health Maintenance Due Date Last Done Comments [...] e / Group Dates AETNA - AETNA [id number] 2019-Prese P O BOX Me dicare Adv MANAGED MEDICARE ADV nt [id number] [place] [address] documented as of this encounter
--- OUTSIDE RECORDS SUMMARY | 2020-07-21 07:15 | XMS REPORT | Summary of Care ---
:1975 Author Organization [facility] Address [address] [place] [address] Care Team Providers Name Role Phone Kaye [...] Diabetes & Procedures CONSULT/REFERRAL ENDOCRINOLOGY Preferred Location: [facility] Marlee Restrepo MD Metabolism [address] [place] [address] [place] [phone] Encounter Details Date Type Department Care Team Description 05/08/2020 Office Visit [facility] Landy Bates Hypocortisol emia (Primary Dx); EndocrinologyKaye MD Hair loss; [facility] [address], Fatigue, unspecified type; [address], [facility] 400 Prinzmetal variant angina [address] [place] [address] [place], [place] [phone] Allergies Active Allergy Reactions Severity Noted [...] 2 Coronary artery (two) days. disease involving [place] coronary artery of [place] heart without angina pectoris, Essential hypertension, Dyslipidemia, [...] 27 mg by 0 Active 27 mg [place] MAGNESIUM mouth 3 (three) (MAG-G) tablet times [...] tabletIndications: mouth daily. Coronary artery disease involving [place] coronary artery of [place] heart with angina pectoris, Essential hypertension traZODone [...] Coronary artery for Chest pain. disease involving [place] coronary artery of [place] heart with angina pectoris TOPIRAMATE 50 mg [...] stenosis Atherosclerosis of artery Bulging lumbar disc [place] (mitral incompetence) Polycystic ovarian disease GERD (gastroesophageal [...] 60 Each 11 magnesium gluconate 27 mg [place] MAGNESIUM (MAG-G) tablet Take 27 mg by [...] Staphylococcus aureus (MRSA) 01/04/2018 Leiomyoma of uterus [place] (mitral incompetence) 2014 JOSE (obstructive sleep apnea) Panic disorder Pap smear abnormality of cervix 1999 s/p LEEP PCOS (polycystic ovarian syndrome) POTS (postural orthostatic tachycardia syndrome) 12/04/2017 Prediabetes 01/23/2018 Prinzmetal angina Seizures Spinal stenosis Urinary incontinence stress incont only Past Surgical History: Procedure Laterality Date ABDOMINAL SCAR REVISION 1997 repair and tummy tuck SECTION [id number] COLONOSCOPY 10/25/2019 COLPOSCOPY,CERVIX W/ADJ VAG,W/LOOP BX CONIZATION [...] MD; Location: [facility] [place] M [place] PATIENT HAS A CORONARY ARTERY STENT 2015 [...] file Gets together: Not on file Attends confucianist service: Not on file Active member of [...] Social History Narrative Lives at home with Anabaptism Preference: Restorationism Family History Problem Relation Age of Onset [...] normal. Judgment and thought content normal. Assessment/Plan Yanic was seen today for new patient. Diagnoses and all orders for this visit: Hypocortisolemia - ADRENOCORTICOTROPIC HORMONE; Future Hair loss - HEPATIC FUNCTION PANEL (56675) (ALB,T.PRO,BILI T,BU/BC,ALT,AST,ALK PHOS); Future - IRON; Future - HEAVY METALS PANEL, BLOOD; Future Fatigue, unspecified type - SEDIMENTATION RATE; Future - CREATINE KINASE; Future - URIC ACID; Future Prinzmetal variant angina - METANEPHRINES, PLASMA; Future Patient for ACTH Stim test. documented in this encounter Plan of Treatment Date Type Specialty Care Team Description 05/09/2020 Office Visit Neurology Anum Connor A [address] [phone] 05/11/2020 Nurse Visit Endocrinology Diabetes & Nurse, Bls Cbc E ndo Metabolism 05/22/2020 Office Visit Endocrinology Diabetes & Kirill Vasquez, CLINICAL CYTOPATHOLOGIST Metabolism [address] [place] [phone] 06/15/2020 Office Visit Pulmonary Disease Nino Bennett, DO [address] [place] [phone] 06/16/2020 Office Visit Cardiology Justo Bolton MD [address] [place] [address] [place] [phone] [phone] 07/06/2020 Office Visit Neurology Anum Connor A NP [address] [place] [phone] 08/16/2020 Office Visit Obstetrics & Gynecology Marco Antonio Robledo MD [address] [place] [address] 15 Name Type Priority Associated Diagnoses Order [...] PANEL LAB Routine Hair loss Expec shaka: (11722) (ALB,T.PRO,BILI 08/2020, T,BU/BC,ALT,AST,ALK PHOS) Ex uriel: 05/08/2021 [...] Problems Progress 5 lb weight General Yes Maiden, loss by next Marlee Restrepo MD visit documented as of this encounter Results Not on filedocumented in this encounter Visit Diagnoses Diagnosis Hypocortisolemia - Primary Glucocorticoid deficiency Hair loss Alopecia, unspecified Fatigue, unspecified type Prinzmetal variant angina Prinzmetal angina documented in this encounter Insurance Payer Benefit Plan Subscriber ID Effective Phone Address Typ e / Group Dates AETNA - AETNA [id number] 2019-Prese P O BOX Me dicare Adv MANAGED MEDICARE ADV nt [id number] [place] [address] documented as of this encounter"
--- OUTSIDE RECORDS SUMMARY | 2020-07-21 07:16 | XMS REPORT | Summary of Care ---
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 [facility] Clinical Rocky Bates MD 250 [facility], [address] [address] Hypocortisolemia; Laboratory, Clear Draw, Clc-Bls Lab Prinzmetal variant angina; [facility] Fatigue, unspecified type; 250 [facility] Hair loss 4th [place] [address] Allergies Active Allergy Reactions Severity Noted Date Comments Adhesive Tape-Silicones Hives 03/12/2016 Amitriptyline Other - See comments 07/20/2018 Made h eadaches worse Doxycycline Shortness of Breath 03/02/2020 Erythromycin Hives, Swelling 03/12/2016 Pregabalin Other - See comments 01/05/2017 Seirzur es Mushroom Unknown - See 01/29/2017 Allergy listed per comments nurses screen a nd pt's father - u kimberli to confirm with pt, unknown reactio n. documented as of this encounter (statuses as of 05/11/2020) Medications Medication Sig Dispensed Refills Start Date [...] 2 Coronary artery (two) days. disease involving [place] coronary artery of [place] heart without angina pectoris, Essential hypertension, Dyslipidemia, [...] 27 mg by 0 Active 27 mg [place] MAGNESIUM mouth 3 (three) (MAG-G) tablet times [...] tabletIndications: mouth daily. 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 disease involving [place] coronary artery of [place] heart with angina pectoris TOPIRAMATE 50 mg [...] 05/05/2020 Active hr capsule MOUTH EVERY MORNING proMETHazine 25 mg Take 1 tablet by 90 tablet 6 05/09/2020 Active tabletIndications: mouth every 4 Migraine without aura (four) hours as and without status needed (N/V or migrainosus, not migraine intractable, headache). Intractable acute post-traumatic headache Hospital, Clinic, or Other Ordered Dose Route Frequency Start Date End Date Status Facility Administered Medication cosyntropin (CORTROSYN) 250 mcg IM ONCE 05/11/202005/11 Active injection 250 mcgIndications: Hypocortisolemia documented as of this encounter (statuses as of 05/11/2020) Active Problems Problem Noted Date Low serum [...] stenosis Atherosclerosis of artery Bulging lumbar disc MD (mitral incompetence) Polycystic ovarian disease GERD (gastroesophageal reflux disease) Anxiety Agoraphobia Panic disorder HTN (hypertension) Gastric polyp Asthma Overview: As a child Allergic rhinitis documented as of this encounter (statuses as of 05/11/2020) Resolved Problems Problem Noted Date Resolved Date Nicotine use disorder 02/08/2019 04/20/2019 Overview: vaping Postprandial vomiting 01/04/2017 01/19/2018 documented as of this encounter (statuses as of 05/11/2020) Immunizations Name Administration Dates Next Due Influenza [...] been in contact with No / Unsure 05/11/2020 7:39 AM CDT someone who was confirmed or suspected to have Coronavirus / COVID-19? documented as of this encounter Last Filed Vital Signs Not on filedocumented in this encounter Plan of Treatment Date Type Specialty Care Team Description 05/22/2020 Office Visit Endocrinology Diabetes & Kirill Vasquez, PRINTING SUPPLIES SALES REPRESENTATIVE Metabolism [address] [place] [address] 06/15/2020 Office Visit Pulmonary Disease Nino Bennett, DO [facility] [place] [address] 06/16/2020 Office Visit Cardiology Justo Bolton MD [address] [place] [address] [place] [phone] [phone] 07/06/2020 Office Visit Neurology Anum Connor, Kaye [address] [place] [phone] 08/16/2020 Office Visit Obstetrics & Gynecology Marco Antonio Robledo MD 146 [facility] [address] [place] [phone] Name Type Priority Associated Diagnoses Date/Ti me ADRENOCORTICOTROPIC HORMONE LAB Routine Hypocortisole norman 05/11/2020 8:37 AM CDT METANEPHRINES, PLASMA LAB Routine Prinzmetal variant angina 05/11/2020 8:37 AM CDT SEDIMENTATION RATE LAB Routine Fatigue, unspecified t ype 05/11/2020 8:37 AM CDT CREATINE KINASE LAB Routine Fatigue, unspecified type 05/11/2020 8:37 AM CDT URIC ACID LAB Routine Fatigue, unspecified type 8:37 AM CDT HEPATIC FUNCTION PANEL LAB Routine Hair loss 05/11 8:37 (23986) (ALB,T.PRO,BILI AM C DT T,BU/BC,ALT,AST,ALK PHOS) IRON LAB Routine Hair loss 05/11/2020 8:3 7 AM CDT HEAVY METALS PANEL, BLOOD LAB Routine Hair loss 8:37 AM CDT CORTISOL STIMULATION 0 MIN LAB Routine Hypocortisolem ia 05/11/2020 8:37 AM CDT CORTISOL STIMULATION 30 MIN LAB Routine Hypocortisole norman 05/11/2020 9:07 AM CDT CORTISOL STIMULATION 60 MIN LAB Routine Hypocortisole norman 05/11/2020 9:37 AM CDT Health Maintenance Due Date Last Done Comments [...] in this encounter Visit Diagnoses Diagnosis Hypocortisolemia Glucocorticoid deficiency Prinzmetal variant angina Prinzmetal angina Fatigue, unspecified type Hair loss Alopecia, unspecified documented in this encounter Insurance Payer Benefit Plan Subscriber ID Effective Phone Address Typ e / Group Dates AETNA - AETNA [id number] 2019-Prese P O BOX Me dicare Adv MANAGED MEDICARE ADV nt [id number] [place] [address] documented as of this encounter
--- OUTSIDE RECORDS SUMMARY | 2020-07-21 07:16 | XMS REPORT | Summary of Care ---
:1975 Author Organization [facility] Address [address] [place] [address] Care Team Providers Name Role Phone Kaye Gupta MD Primary Care Provider Reason for Visit Reason Comments Refill Request Encounter Details Date Type Department Care Team Description 05/12/2020 Refill [facility] Cardiology- Justo Bolton MD Refill Request [address], Suite [facility] 106 [address] [place] [address] [place] [address] [phone] Allergies Active Allergy Reactions Severity Noted Date [...] as of this encounter (statuses as of 05/15/2020) Medications Medication Sig Dispensed Refills Start End Date Status Date gabapentin 600 mg Take 600 mg by 0 Active tablet mouth 5 (five) times daily. albuterol 1.25 Use 3 mL as 1 Box 11 Act bri mg/3 mL nebulizer directed every 8 solution 6 (six) hours as needed for Wheezing. bumetanide 1 mg Take 1 tablet 15 tablet 5 Active tabletIndications: by mouth every 9 Coronary artery 2 (two) days. disease involving [place] coronary artery of [place] heart without angina pectoris, Essential hypertension, Dyslipidemia, ORTIZ (dyspnea on exertion), Family history of premature CAD diltiazem XR 120 Take 1 capsule 30 capsule 11 Active mg 24 hr capsule by mouth every 9 evening. atorvastatin 80 mg Take 1 tablet 90 tablet 3 Active tablet by mouth every 9 morning. aspirin 81 mg Take 1 tablet 30 tablet 11 Ac tive chewable tablet by mouth daily. 9 HYDROcodone-acetam TK 1 T PO BID. 0 Active inophen 7.5-325 mg 9 per tablet Diclofenac Sodium BLAINE 2 GRAMS EXT 0 Active 1 % gel AA QID 9 tiZANidine 4 mg TK 1 T PO TID 0 Active tablet 9 proMETHazine 25 mg TK 1 T PO Q 8 H 0 Active tablet PRF NAUSEA OR 9 VOM pantoprazole 40 mg 0 A ctive EC tablet 9 CLOPIDOGREL 75 mg TAKE 1 TABLET 90 tablet 2 Active tablet BY MOUTH DAILY 9 MONTELUKAST 10 mg TAKE 1 TABLET 30 tablet 11 Active tabletIndications: BY MOUTH EVERY 9 Allergic rhinitis, EVENING unspecified seasonality, unspecified trigger RANOLAZINE 1,000 TAKE 1 TABLET 60 tablet 5 Active mg tablet BY MOUTH TWICE 9 DAILY magnesium Take 27 mg by 0 Active gluconate 27 mg mouth 3 (three) [place] MAGNESIUM times daily. (MAG-G) tablet WIXELA INHUB INHALE 1 PUFF 60 Each 11 Act bri 500-50 mcg/dose BY MOUTH EVERY 0 inhalation disk 12 HOURS LEVALBUTEROL 0.63 USE 1 VIAL BY 75 mL 5 Active mg/3 mL nebulizer NEBULATION 0 solutionIndication THREE TIMES s: Acute bacterial DAILY NEEDED sinusitis, FOR WHEEZING, Asthmatic SHORTNESS OF bronchitis with BREATH OR CHEST acute TIGHTNESS exacerbation, unspecified asthma severity, unspecified whether persistent losartan 25 mg Take 1 tablet 90 tablet 3 A ctive tabletIndications: by mouth daily. 0 Coronary artery disease involving [place] coronary artery of [place] heart with angina pectoris, Essential hypertension traZODone 100 mg Take one to two 180 tablet 1 Active tabletIndications: tablets at 0 Insomnia due to night as needed medical condition for insomnia diltiazem 120 mg TK 1 C PO QPM 0 Active 24 hr capsule 0 metoprolol Take 1 tablet 30 tablet 6 Activ e succinate XL 25 mg by mouth 2 0 24 hr (two) times tabletIndications: daily. Essential hypertension busPIRone 5 mg Take 4 tablets 360 tablet 2 Active tabletIndications: by mouth three 0 Generalized times per day anxiety disorder nitroglycerin Place 1 tablet 1 Bottle 3 A ctive (NITROSTAT) 0.4 mg under the 0 sublingual tongue every 5 tabletIndications: (five) minutes Coronary artery as needed for disease involving Chest pain. [place] coronary artery of [place] heart with angina pectoris TOPIRAMATE 50 mg TAKE 3 TABLETS 540 tablet 3 Active tabletIndications: BY MOUTH TWICE 0 Migraine without DAILY aura and without status migrainosus, not intractable PRIMIDONE 50 mg TAKE 1 TABLET 180 tablet 3 Active tabletIndications: BY MOUTH TWICE 0 Migraine without DAILY aura and without status migrainosus, not intractable CARTIA XT 240 mg TAKE 1 CAPSULE 90 capsule 1 Active 24 hr capsule BY MOUTH EVERY 0 MORNING proMETHazine 25 mg Take 1 tablet 90 tablet 6 Active tabletIndications: by mouth every 0 Migraine without 4 (four) hours aura and without as needed (N/V status or migraine migrainosus, not headache). intractable, Intractable acute post-traumatic headache isosorbide Take 1 tablet 90 tablet 0 Activ e mononitrate 120 mg by mouth every 0 24 hr morning. tabletIndications: Morbid obesity with body mass index of 40.0-49.9, Coronary artery disease involving autologous artery coronary bypass graft without angina pectoris ISOSORBIDE TAKE 1 TABLET 90 tablet 0 05/15/20 Disco ntinued MONONITRATE 120 mg BY MOUTH EVERY 0 20 (Reorder) 24 hr DAY IN THE tabletIndications: MORNING Morbid obesity with body mass index of 40.0-49.9, Coronary artery disease involving autologous artery coronary bypass graft without angina pectoris documented as of this encounter (statuses as of 05/15/2020) Active Problems Problem Noted Date Low serum [...] stenosis Atherosclerosis of artery Bulging lumbar disc [place] (mitral incompetence) Polycystic ovarian disease GERD (gastroesophageal reflux disease) Anxiety Agoraphobia Panic disorder HTN (hypertension) Gastric polyp Asthma Overview: As a child Allergic rhinitis documented as of this encounter (statuses as of 05/15/2020) Resolved Problems Problem Noted Date Resolved Date Nicotine use disorder 02/08/2019 04/20/2019 Overview: vaping Postprandial vomiting 01/04/2017 01/19/2018 documented as of this encounter (statuses as of 05/15/2020) Immunizations Name Administration Dates Next Due Influenza [...] Office Visit Endocrinology Diabetes & Kirill Vasquez, BLOCK[employer]MS Metabolism [address] [place] [address] 06/15/2020 Office Visit Pulmonary Disease Nino Bennett, DO [address] [place] [phone] 06/16/2020 Office Visit Cardiology Justo Bolton MD [address] [address] [place] [address] [phone] 07/06/2020 Office Visit Neurology Anum Connor A [address] [place] [address] 08/16/2020 Office Visit Obstetrics & Gynecology Marco Antonio Robledo MD [address] [place] [address] 15 Health Maintenance Due Date Last Done [...] filedocumented in this encounter Visit Diagnoses Diagnosis Morbid obesity with body mass index of 4 0.0-49.9 Coronary artery disease involving autolo gous artery coronary bypass graft without angina pectoris documented in this encounter Insurance Payer Benefit Plan Subscriber ID Effective Phone Address Typ e / Group Dates AETNA - AETNA [id number] 2019-Prese P O BOX Me dicare Adv MANAGED MEDICARE ADV nt [id number] [place] [address] documented as of this encounter
--- OUTSIDE RECORDS SUMMARY | 2020-07-21 07:16 | XMS REPORT | Summary of Care ---
:1975 Author Organization [facility] Address [address] [place] [address] Care Team Providers Name Role Phone Kaye Gupta MD Primary Care Provider Reason for Visit Reason Comments Assessment Encounter Details Date Type Department Care Team Description 05/18/[address] [facility] Family Medicine Marlee Paniagua MD Assessment - [address] [place] [address] [place] [address] [place] [address] [phone] Allergies Active Allergy Reactions Severity Noted Date [...] as of this encounter (statuses as of 05/19/2020) Medications Medication Sig Dispensed Refills Start Date End Date Status gabapentin 600 mg Take 600 mg by 0 Active tablet mouth 5 (five) times daily. albuterol 1.25 mg/3 Use 3 mL as 1 Box 11 07/02/2018 Active mL nebulizer directed every 6 solution (six) hours as needed for Wheezing. bumetanide 1 mg Take 1 tablet by 15 tablet 5 07/25/2019 Active tabletIndications: mouth every 2 Coronary artery (two) days. disease involving pala coronary artery of pala heart without angina pectoris, Essential hypertension, Dyslipidemia, [...] 11 10/21/2019 Active chewable tablet mouth daily. HYDROcodone-acetamin TK 1 T PO BID. 0 10/22/2019 Active ophen 7.5-325 mg per tablet Diclofenac Sodium 1 [...] 27 mg by 0 Active 27 mg [place] MAGNESIUM mouth 3 (three) (MAG-G) tablet times daily. WIXELA INHUB 500-50 INHALE 1 PUFF BY 60 Each 11 12/27/2019 Active mcg/dose inhalation MOUTH EVERY 12 disk HOURS LEVALBUTEROL 0.63 USE 1 VIAL BY 75 mL 5 12/29/2019 Active mg/3 mL nebulizer NEBULATION THREE solutionIndications: TIMES DAILY Acute bacterial NEEDED FOR sinusitis, Asthmatic WHEEZING, bronchitis with SHORTNESS OF acute exacerbation, BREATH OR CHEST unspecified asthma TIGHTNESS severity, unspecified whether persistent losartan 25 mg Take 1 tablet by 90 tablet 3 01/19/2020 Active tabletIndications: mouth daily. 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 Essential hypertension busPIRone 5 mg Take 4 tablets by 360 tablet 2 02/17/2020 Active tabletIndications: mouth three times Generalized anxiety per day disorder nitroglycerin Place 1 tablet 1 Bottle 3 02/22/2020 Active (NITROSTAT) 0.4 mg under the tongue sublingual every 5 (five) tabletIndications: minutes as needed Coronary artery for Chest pain. disease involving pala coronary artery of pala heart with angina pectoris TOPIRAMATE 50 mg [...] Active tabletIndications: mouth every 4 Migraine without (four) hours as aura and without needed (N/V or status migrainosus, migraine not intractable, headache). Intractable acute post-traumatic headache isosorbide Take 1 tablet by 90 tablet 0 05/15/2020 A ctive mononitrate 120 mg mouth every 24 hr morning. tabletIndications: Morbid obesity with body mass index of 40.0-49.9, Coronary artery disease involving autologous artery coronary bypass graft without angina pectoris nystatin 100,000 Apply to area(s) 30 g 1 05/18/2020 Active unit/gram 2 (two) times ointmentIndications: daily. Yeast infection fluconazole 150 mg Take 1 tablet by 1 tablet 1 05/18/2020 tabletIndications: mouth once now Yeast infection for 1 dose. documented as of this encounter (statuses as of 05/19/2020) Active Problems Problem Noted Date Low serum [...] stenosis Atherosclerosis of artery Bulging lumbar disc [place] (mitral incompetence) Polycystic ovarian disease GERD (gastroesophageal reflux disease) Anxiety Agoraphobia Panic disorder HTN (hypertension) Gastric polyp Asthma Overview: As a child Allergic rhinitis documented as of this encounter (statuses as of 05/19/2020) Resolved Problems Problem Noted Date Resolved Date Nicotine use disorder 02/08/2019 04/20/2019 Overview: vaping Postprandial vomiting 01/04/2017 01/19/2018 documented as of this encounter (statuses as of 05/19/2020) Immunizations Name Administration Dates Next Due Influenza [...] been in contact with No / Unsure 05/16/2020 1:05 PM CDT someone who was confirmed or suspected to have Coronavirus / COVID-19? documented as of this encounter Last Filed Vital Signs Not on filedocumented in this encounter Plan of Treatment Date Type Specialty Care Team Description 05/22/2020 Office Visit Endocrinology Diabetes & Kirill Vasquez, PRODUCTION CONSULTANT Metabolism [address] [place] [address] 05/30/2020 Appointment Radiology Anum Connor A NP [address] [place] [phone] 05/30/2020 Appointment Radiology Anum Connor A NP [address] [place] [phone] 06/15/2020 Office Visit Pulmonary Disease Nino Bennett, DO [facility] [place] [phone] 06/16/2020 Office Visit Cardiology Justo Bolton MD [address] [place] [phone] 07/06/2020 Office Visit Neurology Anum Connor A FUSELAGE FRAMER [address] [place] [phone] 08/16/2020 Office Visit Obstetrics & Gynecology Robledo, Vie n Cam, MD [address] [place] [address] [address] [place], [place] [address] [phone] Health Maintenance Due Date Last Done Comments [...] filedocumented in this encounter Visit Diagnoses Diagnosis Yeast infection - Primary Other and unspecified mycoses documented in this encounter Insurance Payer Benefit Plan Subscriber ID Effective Phone Address Typ e / Group Dates AETNA - AETNA [id number] 2019-Prese [address] BOX Me dicare Adv MANAGED MEDICARE ADV nt [id number] [facility] [place] [address] documented as of this encounter
--- OUTSIDE RECORDS SUMMARY | 2020-07-21 07:16 | XMS REPORT | Summary of Care ---
:1975 Author Organization [facility] Address [address] [place] [address] Care Team Providers Name Role Phone Kaye Gupta MD Primary Care Provider Reason for Referral (Routine) Status Reason Specialty Diagnoses / Referred By Referred To Procedures Contact Contact New Request Diagnoses Hypocortisolemia Landy Bates, Procedures COSYNTROPIN STIMULATION TEST [address] [place] [address] [phone] Reason for Visit Reason Comments NURSE VISIT ACTH Stimulation Test Encounter Details Date Type Department Care Team Description 05/11/2020 Nurse Visit [facility] Landy Bates MD [address] [place] [phone] Hypocortisolemia (Primary Endocrinology, Clear Nurse, s Cbc Endo Dx) [address] [place] [address] Allergies Active Allergy Reactions Severity [...] 2 Coronary artery (two) days. disease involving [place] coronary artery of [place] heart without angina pectoris, Essential hypertension, Dyslipidemia, [...] 27 mg by 0 Active 27 mg [place] MAGNESIUM mouth 3 (three) (MAG-G) tablet times [...] tabletIndications: mouth daily. Coronary artery disease involving [place] coronary artery of [place] heart with angina pectoris, Essential hypertension traZODone [...] Coronary artery for Chest pain. disease involving [place] coronary artery of [place] heart with angina pectoris TOPIRAMATE 50 mg [...] cosyntropin (CORTROSYN) 250 mcg IM ONCE 05/11/202005/11 Ended injection 250 mcgIndications: Hypocortisolemia documented as of [...] stenosis Atherosclerosis of artery Bulging lumbar disc [place] (mitral incompetence) Polycystic ovarian disease GERD (gastroesophageal [...] Sign Reading Time Taken Comments Blood Pressure 129/85 05/11/2020 8:06 AM CDT Pulse 71 05/11/2020 8:06 AM CDT Temperature 36.7 C (98.1 F) 05/11/2020 8:06 AM CDT Respiratory Rate 18 05/11/2020 8:06 AM CDT Oxygen Saturation 100% 05/11/2020 8:06 AM CDT Inhaled Oxygen Concentration - - Weight 113.9 kg (251 lb) 05/11/2020 8:06 AM CDT Height - - Body Mass Index 49.02 05/09/2020 3:03 PM CDT documented in this encounter Progress Notes Nataliia Owen, VILLA - 05/11/2020 8:30 AM CDTPt presents to the clinic for a ACTH Stimulation Test. Patient identified by name and . I have explained test to patient and consent was given. Vital signs are stable and patient is in no apparent distress. Pt states she ate nothing. Pt denies intake of caffeine and steroids in 24 hours. At 0837 baseline cortisol and plasma ACTH blood drawn from right AC; venipuncture x 1, patient tolerated well. 2x2 applied at site. Sample labeled and sent to [facility] lab for processing. At 0837 Cortrosyn 250 mcg given IM to the left Deltoid, patient tolerated well. [facility] 0823-1605-82 Lot # [id number] Expiration 05/2021 At 0909 30 min Cortisol drawn from right AC; venipuncture x 1; patient tolerated well. 2x2 applied at site. Sample labeled and sent to [facility] lab for processing. At 0937 60 min Cortisol drawn from right AC; venipuncture x 1; patient tolerated well. 2x2 applied at site. Sample labeled and sent to [facility] lab for processing. Pt left ambulating at 0939. documented in this encounter Plan of Treatment Date Type Specialty Care Team Description 05/22/2020 Office Visit Endocrinology Diabetes & Kirill Vasquez, DOOR LINER Metabolism [address] [place] [phone] 06/15/2020 Office Visit Pulmonary Disease Nino Bennett, DO [facility] [place] [phone] 06/16/2020 Office Visit Cardiology Justo Bolton MD [address] [place] [address] [place] [phone] 07/06/2020 Office Visit Neurology Anum Connor A [address] [phone] 08/16/2020 Office Visit Obstetrics & Gynecology Marco Antonio Robledo MD [address] [place] [address] [place] [address] 15 Name Type Priority Associated Diagnoses Date/Ti me CORTISOL STIMULATION 0 MIN LAB Routine Hypocortisolem ia 05/11/2020 8:37 AM CDT CORTISOL STIMULATION 30 LAB Routine Hypocortisolemia 05/11/2020 9:07 AM CDT MIN CORTISOL STIMULATION 60 LAB Routine Hypocortisolemia 05/11/2020 9:37 AM CDT MIN Name Type Priority Associated Diagnoses Order S chedule COSYNTROPIN STIMULATION PROCEDURES Routine Hypocortisolemia Ordered: 05/11/2020 TEST CORTISOL STIMULATION 0 LAB Routine Hypocortisolemia E xpected: MIN 05/11/2020, Exp ires: 05/11/2021 CORTISOL STIMULATION 30 LAB Routine Hypocortisolemia Expected: MIN 05/11/2020, Exp ires: 05/11/2021 CORTISOL STIMULATION 60 LAB Routine Hypocortisolemia Expected: MIN 05/11/2020, Exp ires: 05/11/2021 Health Maintenance Due Date Last Done Comments [...] Problems Progress 5 lb weight General Yes Marshall, loss by next Marlee Restrepo MD visit documented as of this encounter Results Not on filedocumented in this encounter Visit Diagnoses Diagnosis Hypocortisolemia - Primary Glucocorticoid deficiency documented in this encounter Administered Medications Medication Order MAR Action Action Date Dose Rate Site cosyntropin (CORTROSYN) Given 05/11/2020 8:37 AM 250 mcg Left Deltoid-IM injection 250 mcg CDT 250 mcg, Intramuscular, ONCE, 1 dose, Chanelle 05/11/20 at 0830, Routine documented in this encounter Insurance Payer Benefit Plan Subscriber ID Effective Phone Address Typ e / Group Dates AETNA - AETNA [id number] 2019-Prese P O BOX Me dicare Adv MANAGED MEDICARE ADV nt [id number] [place] [address] documented as of this encounter
--- OUTSIDE RECORDS SUMMARY | 2020-07-21 07:17 | XMS REPORT | Summary of Care ---
:1975 Author Organization [facility] Address [address] [place] [address] Care Team Providers Name Role Phone Kaye Gupta MD Primary Care Provider Reason for Referral MRI/CAT Scan (Routine) Status Reason Specialty Diagnoses / Referred By Referred To Procedures Contact Contact New Request Diagnostic Diagnoses Scioto disease Landy Bates Radiology Procedures CT ABDOMEN W KANDIS Restrepo MD [address] [place] [phone] MRI/CAT Scan (Routine) Status Reason Specialty Diagnoses / Referred By Referred To Procedures Contact Contact New Request Diagnostic Diagnoses Scioto disease Landy Bates Radiology Procedures MR PITUITARY W KANDIS Restrepo MD [address] [address] Reason for Visit Reason Comments Follow-up pr confirm all meds and phar yamilet Encounter Details Date Type Department Care Team Description 05/22/2020 Office Visit [facility] Kirill Vasquez , PROTECTION AGENT [address] [place] [phone] Scioto disease (Primary Dx); Endocrinology, Clear Landy Bates MD 250 [facility], [facility] [address] [place] [address] Fatigue, unspecified type [facility] 250 [facility], 4th [place] [address] Allergies Active Allergy Reactions Severity [...] as of this encounter (statuses as of 05/22/2020) Medications Medication Sig Dispensed Refills Start Date [...] 2 Coronary artery (two) days. disease involving [place] coronary artery of [place] heart without angina pectoris, Essential hypertension, Dyslipidemia, [...] 27 mg by 0 Active 27 mg [place] MAGNESIUM mouth 3 (three) (MAG-G) tablet times [...] tabletIndications: mouth daily. Coronary artery disease involving [place] coronary artery of [place] heart with angina pectoris, Essential hypertension traZODone [...] Coronary artery for Chest pain. disease involving [place] coronary artery of [place] heart with angina pectoris TOPIRAMATE 50 mg [...] migraine intractable, headache). Intractable acute post-traumatic headache isosorbide Take 1 tablet by 90 tablet 0 05/15/2020 A ctive mononitrate 120 mg 24 mouth every hr tabletIndications: morning. 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 Fatigue, unspecified type 05/22/2020 Low serum cortisol level 05/04/2020 Essential hypertension [...] stenosis Atherosclerosis of artery Bulging lumbar disc [place] (mitral incompetence) Polycystic ovarian disease GERD (gastroesophageal reflux disease) Anxiety Agoraphobia Panic disorder HTN (hypertension) Gastric polyp Asthma Overview: As a child Allergic rhinitis documented as of this encounter (statuses as of 05/22/2020) Resolved Problems Problem Noted Date Resolved Date Nicotine use disorder 02/08/2019 04/20/2019 Overview: vaping Postprandial vomiting 01/04/2017 01/19/2018 documented as of this encounter (statuses as of 05/22/2020) Immunizations Name Administration Dates Next Due Influenza [...] been in contact with No / Unsure 05/22/2020 11:40 AM CDT someone who was confirmed or suspected to have Coronavirus / COVID-19? documented as of this encounter Last Filed Vital Signs Vital Sign Reading Time Taken Comments Blood Pressure 119/88 05/22/2020 11:49 AM CDT Pulse 99 05/22/2020 11:49 AM CDT Temperature 36.4 C (97.5 F) 05/22/2020 11:49 AM CDT Respiratory Rate - - Oxygen Saturation 98% 05/22/2020 11:49 AM CDT Inhaled Oxygen Concentration - - Weight 112.1 kg (247 lb 3.2 oz) 05/22/2020 11:49 AM CDT Height 152.4 cm (5') 05/22/2020 11:49 AM CDT Body Mass Index 48.28 05/22/2020 11:49 AM CDT documented in this encounter Progress Notes aLndy Bates MD - 05/22/2020 11:40 AM CDT Cc: Chief Complaint Patient presents with Follow-up pr confirm all meds and pharmacy Yanci Man is a 45 year old female. Patient main complain is fatigue, she failed her recent ACTH Stim test, she need imaging studies completed. It has to be established if she is premature menopause. Patient was concerned with heavy metal intoxications results are normal reassured. Allergies Yanci is allergic to adhesive tape-silicones; amitriptyline; doxycycline; erythromycin; lyrica [pregabalin]; and mushroom. Medications Outpatient Medications Prior to Visit Medication Sig Dispense Refill nystatin 100,000 unit/gram ointment Apply to area(s) 2 (two) times daily. 30 g 1 isosorbide mononitrate 120 mg 24 hr tablet Take 1 tablet by mouth every morning. 90 tablet 0 proMETHazine 25 mg tablet Take 1 tablet by mouth every 4 (four) hours as needed (N/V or migraineheadache). 90 tablet 6 CARTIA XT 240 mg 24 hr capsule [...] three times per day 360 tablet 2 metoprolol succinate XL 25 mg 24 hr [...] 60 Each 11 magnesium gluconate 27 mg [place] MAGNESIUM (MAG-G) tablet Take 27 mg by [...] Staphylococcus aureus (MRSA) 01/04/2018 Leiomyoma of uterus [place] (mitral incompetence) 2014 JOSE (obstructive sleep apnea) Panic disorder Pap smear abnormality of cervix 1999 s/p LEEP PCOS (polycystic ovarian syndrome) POTS (postural orthostatic tachycardia syndrome) 12/04/2017 Prediabetes 01/23/2018 Prinzmetal angina Seizures Spinal stenosis Urinary incontinence stress incont only Past Surgical History: Procedure Laterality Date ABDOMINAL SCAR REVISION 1997 repair and tummy tuck SECTION [id number] COLONOSCOPY 10/25/2019 COLPOSCOPY,CERVIX W/ADJ VAG,W/LOOP BX CONIZATION CERVIX,LOOP ELECTRD 1999 DEQUERVAIN'S CONTRACTURE RELEASE Right 02/26/2019 Surgeon: Thomas Ware MD; Location: [facility] DILATION AND CURETTAGE (SHX) 1998 DRAIN OVARIAN ABSCESS,ABD APPRCH ENDOSCOPIC CARPAL TUNNEL RELEASE Right 02/26/2019 Surgeon: Thomas Ware MD; Location: [facility] ESOPHAGOGASTRODUODENOSCOPY HERNIA REPAIR Right 2004 LAPAROSCOPIC ADJUSTABLE GASTRIC BANDING 01/2000 LAPAROSCOPIC GASTRIC BAND REMOVAL 2017 OPEN CARPAL TUNNEL RELEASE Left 04/06/2018 Surgeon: Gautam Zamorano MD; Location: [facility] LA PATIENT HAS A CORONARY ARTERY STENT 2015 x 3 TEAR DUCT SYSTEM SURG UNLISTED TENDON REPAIR Right ankle TRIGGER FINGER RELEASE Right 02/26/2019 Surgeon: Thomas Ware MD; Location: [facility] Social History Socioeconomic History Marital status: Spouse [...] file Gets together: Not on file Attends denominational service: Not on file Active member of [...] Social History Narrative Lives at home with Hoahaoism Preference: Evangelical Family History Problem Relation Age of Onset [...] NoFHx Review of Systems Constitutional: Positive for fatigue. HENT: Negative. Respiratory: Negative. Cardiovascular: Negative. Gastrointestinal: Negative. Musculoskeletal: Negative. Neurological: Negative. Psychiatric/Behavioral: Negative. Endocrine: Endocrine negative Vital Signs BP 119/88 (BP Location: Left arm, Patient Position: Sitting, BP CUFF SIZE: Adult Large) | Pulse 99| Temp 36.4 C (97.5 F) | Ht 5' (1.524 m) | Wt 247 lb 3.2 oz (112.1 kg) | SpO2 98% | BMI 48.28 kg/m Physical Exam Assessment/Plan Yanci was seen today for follow-up. 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 documented in this encounter Plan of Treatment Date Type Specialty Care Team Description 05/30/2020 Appointment Radiology Anum Connor A NP [address] [place] [phone] 05/30/2020 Appointment Radiology Anum Connor A NP [address] [place] [phone] 06/13/2020 Nurse Visit Endocrinology Diabetes & Nurse, Bls Cbc E ndo Metabolism 06/15/2020 Office Visit Pulmonary Disease Nino Bennett DO [facility] [place] [phone] 06/16/2020 Office Visit Cardiology Justo Bolton MD [address] [place] [address] [place] [phone] 07/06/2020 Office Visit Neurology Anum Connor A NP [address] [place] [phone] 08/16/2020 Office Visit Obstetrics & Gynecology Marco Antonio Robledo MD [address] [place] [address] [place] [phone] Name Type Priority Associated Diagnoses Order S chedule MR PITUITARY W CONTRAST IMAGING Routine Edwin disease E xpected: 05/29/2020, Exp ires: 06/21/2020 CT ABDOMEN W CONTRAST IMAGING Routine Scioto disease Exp ected: 05/22/2020, Exp ires: 05/22/2021 ESTRADIOL, LEVEL LAB Routine Fatigue, unspecified Exp ected: type 06/05/2020, Exp ires: 05/22/2021 PROGESTERONE, LEVEL LAB Routine Fatigue, unspecified Expected: type 06/05/2020, Exp ires: 05/22/2021 FOLLICLE STIMULATING LAB Routine Fatigue, unspecified Expected: HORMONE type 06/05/2020, Exp ires: 05/22/2021 LUTEINIZING HORMONE LAB Routine Fatigue, unspecified Expected: SERUM type 06/05/2020, Exp ires: 05/22/2021 Health Maintenance Due Date Last Done Comments [...] filedocumented in this encounter Visit Diagnoses Diagnosis Edwin disease - Primary Glucocorticoid deficiency Fatigue, unspecified type documented in this encounter Insurance Payer Benefit Plan Subscriber ID Effective Phone Address Typ e / Group Dates AETNA - AETNA [id number] 2019-Prese P O BOX Me dicare Adv MANAGED MEDICARE [place]V nt [id number] [place] [address] documented as of this encounter"
--- OUTSIDE RECORDS SUMMARY | 2020-07-21 07:18 | XMS REPORT | Summary of Care ---
:1975 Author Organization [facility] Address [address] [place] [address] Care Team Providers Name Role Phone Kaye Gupta MD Primary Care Provider Reason for Referral MRI/CAT Scan (Routine) Status Reason Specialty Diagnoses / Referred By Referred To Procedures Contact Contact New Request Diagnostic Diagnoses Macon disease Landy Bates Radiology Procedures CT ABDOMEN W KANDIS Restrepo MD [address] [place] [id number] MRI/CAT Scan (Routine) Status Reason Specialty Diagnoses / Referred By Referred To Procedures Contact Contact New Request Diagnostic Diagnoses Macon disease Landy Bates Radiology Procedures MR PITUITARY W KANDIS Restrepo MD [address] [address] Reason for Visit Reason Comments Follow-up pr confirm all meds and phar yamilet Encounter Details Date Type Department Care Team Description 05/22/2020 Office Visit [facility] Kirill Vasquez , [place] [address] [place] [phone] Macon disease (Primary Dx); Endocrinology, Clear Landy Bates MD 250 [facility], [facility] [address] [place] [address] Fatigue, unspecified type [facility] 250 [facility], 4th [place] [address] Allergies Active Allergy Reactions Severity [...] 2 Coronary artery (two) days. disease involving [place] coronary artery of [place] heart without angina pectoris, Essential hypertension, Dyslipidemia, [...] 27 mg by 0 Active 27 mg [place] MAGNESIUM mouth 3 (three) (MAG-G) tablet times [...] tabletIndications: mouth daily. Coronary artery disease involving [place] coronary artery of [place] heart with angina pectoris, Essential hypertension traZODone [...] Coronary artery for Chest pain. 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 Fatigue, unspecified type 05/22/2020 Low [...] stenosis Atherosclerosis of artery Bulging lumbar disc SC (mitral incompetence) Polycystic ovarian disease GERD (gastroesophageal [...] encounter Progress Notes Landy Bates MD - 05/22/2020 11:40 AM CDT [...] 60 Each 11 magnesium gluconate 27 mg [place] MAGNESIUM (MAG-G) tablet Take 27 mg by [...] Staphylococcus aureus (MRSA) 01/04/2018 Leiomyoma of uterus SC (mitral incompetence) 2014 JOSE (obstructive sleep apnea) Panic disorder Pap smear abnormality of cervix 1999 s/p LEEP PCOS (polycystic ovarian syndrome) POTS (postural orthostatic tachycardia syndrome) 12/04/2017 Prediabetes 01/23/2018 Prinzmetal angina Seizures Spinal stenosis Urinary incontinence stress incont only Past Surgical History: Procedure Laterality Date ABDOMINAL SCAR REVISION 1997 repair and tummy tuck SECTION [id number] COLONOSCOPY 10/25/2019 COLPOSCOPY,CERVIX W/ADJ VAG,W/LOOP BX CONIZATION CERVIX,LOOP ELECTRD 1999 DEQUERVAIN'S CONTRACTURE RELEASE Right 02/26/2019 Surgeon: Thomas Ware MD; Location: [facility] DILATION AND CURETTAGE (SHX) 1998 DRAIN OVARIAN ABSCESS,ABD APPRCH ENDOSCOPIC CARPAL TUNNEL RELEASE Right 02/26/2019 Surgeon: Thomas Ware MD; Location: [facility] ESOPHAGOGASTRODUODENOSCOPY HERNIA REPAIR Right 2004 LAPAROSCOPIC ADJUSTABLE GASTRIC BANDING 01/2000 LAPAROSCOPIC GASTRIC BAND REMOVAL 2017 OPEN CARPAL TUNNEL RELEASE Left 04/06/2018 Surgeon: Gautam Zamorano MD; Location: [facility] [place] PATIENT HAS A CORONARY ARTERY STENT 2015 x 3 TEAR DUCT SYSTEM SURG UNLISTED TENDON REPAIR Right ankle TRIGGER FINGER RELEASE Right 02/26/2019 Surgeon: Thomas Ware MD; Location: [facility] Social History Socioeconomic History Marital status: Spouse [...] file Gets together: Not on file Attends pentecostalism service: Not on file Active member of [...] Social History Narrative Lives at home with Buddhist Preference: Sabianism Family History Problem Relation Age of Onset [...] 05/30/2020 Appointment Radiology Anum Connor A NP [address] [place] [phone] 05/30/2020 Appointment Radiology Anum Connor A NP [address] [place] [phone] 06/13/2020 Nurse Visit Endocrinology Diabetes & Nurse, Bls Cbc E ndo Metabolism 06/15/2020 Office Visit Pulmonary Disease Nino Bennett DO [facility] [place] [phone] 06/16/2020 Office Visit Cardiology Justo Bolton MD [address] [place] [address] [place] [address] [phone] 07/06/2020 Office Visit Neurology Anum Connor A NP [address] [place] [phone] 08/16/2020 Office Visit Obstetrics & Gynecology Marco Antonio Robledo MD [address] [place] [address] [place] [address] 77 15 Name Type Priority Associated Diagnoses Order S chedule MR PITUITARY W CONTRAST IMAGING Routine Edwin disease E xpected: 05/29/2020, Exp ires: 06/21/2020 CT ABDOMEN W CONTRAST IMAGING Routine Macon disease Exp ected: 05/22/2020, Exp ires: 05/22/2021 [...] e / Group Dates AETNA - AETNA [id number] 2019-Prese P O BOX Me dicare Adv MANAGED MEDICARE ADV nt [id number] [place] [address] documented as of this encounter"
--- OUTSIDE RECORDS SUMMARY | 2020-07-21 07:18 | XMS REPORT | Summary of Care ---
:1975 Author Organization [facility] Address [address] [place] [address] Care Team Providers Name Role Phone Kaye Gupta MD Primary Care Provider Encounter Details Date Type Department Care Team Description 03/10/2020 Orders Only [facility] Doctor Unassigned, No 301 [facility] [place] [address] [address] [place] [id number] Allergies Active Allergy Reactions Severity Noted Date [...] as of this encounter (statuses as of 05/23/2020) Medications Medication Sig Dispensed Refills Start Date [...] 2 Coronary artery (two) days. disease involving [place] coronary artery of [place] heart without angina pectoris, Essential hypertension, Dyslipidemia, [...] 27 mg by 0 Active 27 mg [place] MAGNESIUM mouth 3 (three) (MAG-G) tablet times [...] tabletIndications: mouth daily. Coronary artery disease involving [place] coronary artery of [place] heart with angina pectoris, Essential hypertension traZODone [...] Coronary artery for Chest pain. 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 Fatigue, unspecified type 05/22/2020 Low [...] stenosis Atherosclerosis of artery Bulging lumbar disc NM (mitral incompetence) Polycystic ovarian disease GERD (gastroesophageal reflux disease) Anxiety Agoraphobia Panic disorder HTN (hypertension) Gastric polyp Asthma Overview: As a child Allergic rhinitis documented as of this encounter (statuses as of 05/23/2020) Resolved Problems Problem Noted Date Resolved Date Nicotine use disorder 02/08/2019 04/20/2019 Overview: vaping Postprandial vomiting 01/04/2017 01/19/2018 documented as of this encounter (statuses as of 05/23/2020) Immunizations Name Administration Dates Next Due Influenza [...] Type Specialty Care Team Description 05/30/2020 Appointment Anum Carr A NP [address] [place] [phone] 05/30/2020 Appointment Radiology Anum Connor A NP [address] [place] [address] [phone] 06/01/2020 Office Visit Family Medicine Brittnee Gupta MD [address] [place], [place] [address] [phone] 06/13/2020 Nurse Visit Endocrinology Diabetes & Nurse, Bls Cbc E ndo Metabolism 06/15/2020 Office Visit Pulmonary Disease Aleida Bennettestebanmario [facility] [place] [phone] 06/16/2020 Office Visit Cardiology Justo Bolton MD [address] [place], [place] [phone] 07/06/2020 Office Visit Neurology Anum Connor A SOIL TECH[employer]OLOGIST [address] [place] [address] [place] [address] 08/16/2020 Office Visit Obstetrics & Gynecology Marco Antonio Robledo MD [address] [facility] [address] [place] [address] [place], [place] [address] [phone] Health Maintenance Due Date Last Done Comments [...] MD visit documented as of this encounter Procedures Procedure Name Priority Date/Time Associated Diagnosis Comme nts MEDICATION CORRESPONDENCE Routine 03/10/2020 12:01 AM CDT documented in this encounter Results Not on filedocumented in this encounter Insurance Payer Benefit Plan Subscriber ID Effective Phone Address Typ e / Group Dates AETNA - AETNA [id number] 2019-Prese P O BOX Me dicare Adv MANAGED MEDICARE ADV nt [id number] [place] [address] documented as of this encounter
--- OUTSIDE RECORDS SUMMARY | 2020-07-21 07:19 | XMS REPORT | Summary of Care ---
:1975 Author Organization [facility] Address [address] [place] [address] Care Team Providers Name Role Phone Kaye Gupta MD Primary Care Provider Reason for Visit Reason Comments Refill Request Encounter Details Date Type Department Care Team Description 05/25/2020 Refill [facility] Cardiology- Justo Bolton MD Refill Request [address], [address] [place] [address] [place] [address] [phone] Allergies Active Allergy Reactions Severity Noted Date [...] as of this encounter (statuses as of 05/26/2020) Medications Medication Sig Dispensed Refills Start Date [...] Coronary artery 2 (two) days. disease involving [place] coronary artery of [place] heart without angina pectoris, Essential hypertension, Dyslipidemia, [...] Allergic rhinitis, EVENING unspecified seasonality, unspecified trigger magnesium gluconate Take 27 mg by 0 Active 27 mg [place] mouth 3 (three) MAGNESIUM (MAG-G) times daily. [...] by mouth daily. Coronary artery disease involving [place] coronary artery of [place] heart with angina pectoris, Essential hypertension traZODone [...] as needed for disease involving Chest pain. [place] coronary artery of [place] heart with angina pectoris TOPIRAMATE 50 mg [...] Active hr capsule BY MOUTH EVERY MORNING proMETHazine 25 mg Take 1 tablet 90 tablet 6 05/09/2020 Active tabletIndications: by mouth every Migraine without 4 (four) hours aura and without as needed (N/V status migrainosus, or migraine not intractable, headache). Intractable acute post-traumatic headache isosorbide Take 1 tablet 90 tablet 0 05/15/2020 Acti ve mononitrate 120 mg by mouth every 24 hr morning. tabletIndications: Morbid obesity with body mass index of 40.0-49.9, Coronary artery disease involving autologous artery coronary bypass graft without angina pectoris nystatin 100,000 Apply to 30 g 1 05/18/2020 Ac tive unit/gram area(s) 2 (two) ointmentIndications times daily. : Yeast infection RANOLAZINE 1,000 mg TAKE 1 TABLET 180 tablet 1 05/26/2020 Active tablet BY MOUTH TWICE DAILY RANOLAZINE 1,000 mg TAKE 1 TABLET 60 tablet 5 11/26/201905/26 Discontinued tablet BY MOUTH TWICE 0 DAILY documented as of this encounter (statuses as of 05/26/2020) Active Problems Problem Noted Date [place] disease 05/22/2020 Fatigue, unspecified type 05/22/2020 Low [...] stenosis Atherosclerosis of artery Bulging lumbar disc SD (mitral incompetence) Polycystic ovarian disease GERD (gastroesophageal reflux disease) Anxiety Agoraphobia Panic disorder HTN (hypertension) Gastric polyp Asthma Overview: As a child Allergic rhinitis documented as of this encounter (statuses as of 05/26/2020) Resolved Problems Problem Noted Date Resolved Date Nicotine use disorder 02/08/2019 04/20/2019 Overview: vaping Postprandial vomiting 01/04/2017 01/19/2018 documented as of this encounter (statuses as of 05/26/2020) Immunizations Name Administration Dates Next Due Influenza [...] 05/30/2020 Appointment Radiology Anum Connor A NP [address] [place] [phone] 05/30/2020 Appointment Radiology Anum Connor A NP [address] [place] [phone] 05/30/2020 Appointment Radiology aLndy Bates MD [address] [place] [phone] 06/01/2020 Office Visit Family Medicine Brittnee Gupta MD [address] [place] [phone] 06/13/2020 Nurse Visit Endocrinology Diabetes & Nurse, Bls Cbc E ndo Metabolism 06/15/2020 Office Visit Pulmonary Disease Nino Bennett DO [address] [place] [phone] 06/16/2020 Office Visit Cardiology Justo Bolton MD [address] [place] [phone] 07/06/2020 Office Visit Neurology Anum Connor A VELVET CUTTER [address] [place] [phone] 08/16/2020 Office Visit Obstetrics & Gynecology Marco Antonio Robledo MD [address] [place] [address] [address] [place] [address] [place], [place] [address] Health Maintenance Due Date [...] e / Group Dates AETNA - AETNA [id number] 2019-Prese P O BOX Me dicare Adv MANAGED MEDICARE ADV nt [id number] [place] [address] documented as of this encounter
--- OUTSIDE RECORDS SUMMARY | 2020-07-21 07:19 | XMS REPORT | Summary of Care ---
:1975 Author Organization [facility] Address [address] [place] [address] Care Team Providers Name Role Phone Kaye Gupta MD Primary Care Provider Reason for Visit Reason Comments Forms Notification Talk To Nurse Encounter Details Date Type Department Care Team Description 05/16/2020 Telephone [facility] CardiologyJanak, Forms; Notification; [facility] MD Manan Talk To Nurse 250 [facility], [address] [place] [phone] Allergies Active Allergy Reactions Severity Noted Date [...] as of this encounter (statuses as of 05/30/2020) Medications Medication Sig Dispensed Refills Start Date [...] Coronary artery 2 (two) days. disease involving [place] coronary artery of [place] heart without angina pectoris, Essential hypertension, Dyslipidemia, [...] 27 mg by 0 Active 27 mg [place] mouth 3 (three) MAGNESIUM (MAG-G) times daily. [...] by mouth daily. Coronary artery disease involving [place] coronary artery of [place] heart with angina pectoris, Essential hypertension traZODone [...] as needed for disease involving Chest pain. [place] coronary artery of [place] heart with angina pectoris TOPIRAMATE 50 mg [...] artery coronary bypass graft without angina pectoris RANOLAZINE 1,000 mg TAKE 1 TABLET 60 tablet 5 11/26/201905/26 Discontinued tablet BY MOUTH TWICE 0 DAILY documented as of this encounter (statuses as of 05/30/2020) Active Problems Problem Noted Date Newton disease 05/22/2020 Fatigue, unspecified type 05/22/2020 Low [...] as of this encounter (statuses as of 05/30/2020) Resolved Problems Problem Noted Date Resolved Date Nicotine use disorder 02/08/2019 04/20/2019 Overview: vaping Postprandial vomiting 01/04/2017 01/19/2018 documented as of this encounter (statuses as of 05/30/2020) Immunizations Name Administration Dates Next Due Influenza [...] Date Type Specialty Care Team Description 05/30/2020 Hospital Encounter Radiology Landy Bates, Arr tacos NATARAJAN [address] [place] [address] [phone] 06/01/2020 Office Visit Family Medicine Marlee Gupta MD [address] [place] [phone] 06/13/2020 Nurse Visit Endocrinology Diabetes Nurse, Bls Cbc End o & Metabolism 06/15/2020 Office Visit Pulmonary Disease Nino Bennett, DO [address] [place] [address] 06/16/2020 Office Visit Cardiology Justo Bolton MD [address] [place] [address] [address] [place] [address] [place] [phone] 07/06/2020 Office Visit Neurology Anum Connor A [address] [phone] 08/16/2020 Office Visit Obstetrics & Gynecology Marco Antonio Robledo MD [address] [place] [address] [address] [place] [address] [place], [place] [address] Health Maintenance Due Date [...] Problems Progress 5 lb weight General Yes [place], loss by next Marlee Restrepo MD visit documented as of this encounter Results Not on filedocumented in this encounter Insurance Payer Benefit Plan Subscriber ID Effective Phone Address Typ e / Group Dates AETNA - AETNA [id number] 2019-Jose Gutierrez BOX Me dicare Adv MANAGED MEDICARE ADV nt [id number] [place] [address] documented as of this encounter
--- OUTSIDE RECORDS SUMMARY | 2020-07-21 07:19 | XMS REPORT | Summary of Care ---
:1975 Author Organization [facility] Address [address] [place] [address] Care Team Providers Name Role Phone Kaye Gupta MD Primary Care Provider Reason for Referral MRI/CAT Scan (Routine) Status Reason Specialty Diagnoses / Referred By Referred To Procedures Contact Contact Closed Diagnostic Diagnoses Intractable acute post-traumatic headache Decreased cortisol level Anum Connor ANP Radiology Procedures MR BRAIN W WO CONTRAST [address] [place] [address] Reason for Visit MRI/CAT Scan (Routine) Status Reason Specialty Diagnoses / Referred By Referred To Procedures Contact Contact Closed Diagnostic Diagnoses Intractable acute post-traumatic headache Decreased cortisol level Anum Connor ANP Radiology Procedures MR BRAIN W WO CONTRAST [address] [place] [address] Encounter Details Date Type Department Care Team Description 05/30/2020 Hospital Encounter [facility] Diagnostic Anum Connor ANP [facility]rived [facility] [address] [facility] [address] [place] [phone] Allergies Active Allergy Reactions Severity Noted Date Comments Adhesive Tape-Silicones Hives 03/12/2016 Amitriptyline Other - See comments 07/20/2018 Made h eadaches worse Doxycycline Shortness of Breath 03/02/2020 Erythromycin Hives, Swelling 03/12/2016 Pregabalin Other - See comments 01/05/2017 Silvino golden Mushroom Unknown - See 01/29/2017 Allergy listed per comments nurses screen a nd pt's father - laila ag to confirm with pt, unknown reactio n. documented as of this encounter (statuses as of 05/31/2020) Medications Medication Sig Dispensed Refills Start Date [...] 2 Coronary artery (two) days. disease involving [place] coronary artery of [place] heart without angina pectoris, Essential hypertension, Dyslipidemia, [...] 27 mg by 0 Active 27 mg [place] MAGNESIUM mouth 3 (three) (MAG-G) tablet times [...] tabletIndications: mouth daily. Coronary artery disease involving [place] coronary artery of [place] heart with angina pectoris, Essential hypertension traZODone [...] Coronary artery for Chest pain. disease involving [place] coronary artery of [place] heart with angina pectoris TOPIRAMATE 50 mg [...] 2 (two) times ointmentIndications: daily. 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 Fatigue, unspecified type 05/22/2020 Low [...] as of this encounter (statuses as of 05/31/2020) Resolved Problems Problem Noted Date Resolved Date Nicotine use disorder 02/08/2019 04/20/2019 Overview: vaping Postprandial vomiting 01/04/2017 01/19/2018 documented as of this encounter (statuses as of 05/31/2020) Immunizations Name Administration Dates Next Due Influenza [...] Treatment Date Type Specialty Care Team Description 06/01/2020 Office Visit Family Medicine Brittnee Gupta MD [address] [place] [phone] 06/13/2020 Nurse Visit Endocrinology Diabetes & Nurse, Bls Cbc E ndo Metabolism 06/15/2020 Office Visit Pulmonary Disease Nino Bennett DO [address] [place] [address] 06/16/2020 Office Visit Cardiology Justo Bolton MD [address] [place] [address] [place] [address] [phone] 07/06/2020 Office Visit Neurology Anum Connor A NP [address] [place] [phone] 08/16/2020 Office Visit Obstetrics & Gynecology Marco Antonio Robledo MD [address] [place] [address] [address]. [address] [place], [place] [address] [phone] Health Maintenance Due Date Last Done Comments [...] Problems Progress 5 lb weight General Yes [place], loss by next Marlee Restrepo MD visit documented as of this encounter Procedures Procedure Name Priority Date/Time Associated Diagnosis Comme nts MR BRAIN W WO Routine 05/30/2020 10:43 AM Intractable acute Re sults for this CONTRAST CDT post-traumatic procedure are in headache the results Decreased cortisol section. level documented in this encounter Results MR BRAIN W WO CONTRAST (05/30/2020 10:43 AM CDT) Specimen Impressions Performed At PACS/VR/DOSE No acute intracranial abnormality. No pituitary abnormality identified. Preliminary Report Dictated by Resident: Bridgette Henning I, Lin Neff MD., have reviewed this study and a gree with the above report. Narrative Performed At MRI OF THE BRAIN WITH AND WITHOUT CONTRA ST - PITUITARY PROTOCOL PACS/VR/DOSE HISTORY: Persistent headache s/p trauma, abnormal (low am) cortisol level on recent labs for endocrinology workup COMPARISON:MR brain on 09/27/2017, CT he ad on 04/19/2020 and 03/23/2019 TECHNIQUE: Multiplanar and multisequence imaging of th e brain was obtained on a 1.5 Breana MRI with and without cont rast. 20 ml of MultiHance was administered intravenously. FINDINGS: The pituitary gland is overall normal in size. The inf undibulum is midline. No evidence of macroadenoma or suprasell ar mass. The optic chiasm is grossly normal in appearance. The cavern ous sinuses are unremarkable. No definite evidence of differential enhancement or mass within the pituitary to suggest a microadenoma. The ventricles and sulci are normal in c aliber and configuration. No hydrocephalus. The basal cisterns are wi thin normal limits. There is no diffusion restriction sugges t acute/subacute infarction. No intracranial hemorrhage, extra-axial col lection, mass effect, midline shift, or herniation. No abnormal gradie nt signal. No abnormal intracranial enhancement. The T2 signal void of intracranial vesse ls is within normal limits. No abnormal signal in the paranasal sinu ses or mastoid air cells. Procedure Note [facility], Radiant Results Inft User - 2019 1:15 PM CDT MRI OF THE BRAIN WITH AND WITHOUT CONTRAST - PITUITARY PROTOCOL HISTORY: Persistent headache s/p trauma, abnormal (low am) cortisol level on recent labs for endocrinology workup COMPARISON:MR brain on 09/27/2017, CT he ad on 04/19/2020 and 03/23/2019 TECHNIQUE: Multiplanar and multisequence imaging of the brain was obtained on a 1.5 Breana MRI with and without cont rast. 20 ml of MultiHance was administered intravenously. FINDINGS: The pituitary gland is overall normal in size. The infundibulum is midline. No evidence of macroadenoma or suprasell ar mass. The optic chiasm is grossly normal in appearance. The cavern ous sinuses are unremarkable. No definite evidence of differential enhanc ement or mass within the pituitary to suggest a microadenoma. The ventricles and sulci are normal in c aliber and configuration. No hydrocephalus. The basal cisterns are wi thin normal limits. There is no diffusion restriction sugges t acute/subacute infarction. No intracranial hemorrhage, extra-axial col lection, mass effect, midline shift, or herniation. No abnormal gradie nt signal. No abnormal intracranial enhancement. The T2 signal void of intracranial vesse ls is within normal limits. No abnormal signal in the paranasal sinu ses or mastoid air cells. IMPRESSION No acute intracranial abnormality. No pituitary abnormality identified. Preliminary Report Dictated by Resident: Lin Chi MD., have reviewed th is study and agree with the above report. Performing Organization Address City/State/Zipcode Phone Number PACS/VR/DOSE documented in this encounter Visit Diagnoses Diagnosis Intractable acute post-traumatic headach e Acute post-traumatic headache Decreased cortisol level Glucocorticoid deficiency documented in this encounter Insurance Payer Benefit Plan Subscriber ID Effective Phone Address Typ e / Group Dates AETNA - AETNA [id number] 2019-Jose P O BOX Me dicare Adv MANAGED MEDICARE ADV nt [id number] [place] [address] documented as of this encounter
--- OUTSIDE RECORDS SUMMARY | 2020-07-21 07:20 | XMS REPORT | Summary of Care ---
:1975 Author Organization [facility] Address [address] [place] [address] Care Team Providers Name Role Phone Kaye Gupta MD Primary Care Provider Reason for Visit MRI/CAT Scan (Routine) Status Reason Specialty Diagnoses / Referred By Referred To Procedures Contact Contact New Request Diagnostic Diagnoses Edwin disease Landy Bates Radiology Procedures CT ABDOMEN PELVIS W CONTRAST CT ABDOMEN W CONTRAST MD Kaye [address] [facility] [address] [place] [address] Encounter Details Date Type Department Care Team Description 05/30/2020 Hospital Encounter [facility] Diagnostic Kayleigh Bates, Arrived Imaging, [facility] [address] [facility]. [address] [place] [address] [facility] [address] [place] [id number] [phone] Allergies Active Allergy Reactions Severity Noted Date [...] 2 Coronary artery (two) days. disease involving eastern shoshone coronary artery of eastern shoshone heart without angina pectoris, Essential hypertension, Dyslipidemia, [...] 27 mg by 0 Active 27 mg IGIUGIG MAGNESIUM mouth 3 (three) (MAG-G) tablet times [...] tabletIndications: mouth daily. 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 Atherosclerosis of artery Bulging lumbar disc GA (mitral incompetence) Polycystic ovarian disease GERD (gastroesophageal [...] Visit Family Medicine Brittnee Gupta MD [address] [address] [phone] 06/13/2020 Nurse Visit Endocrinology Diabetes & Nurse, Bls Cbc E ndo Metabolism 06/15/2020 Office Visit Pulmonary Disease SabrinaJacquimario, [address] [place] [phone] 06/16/2020 Office Visit Cardiology Justo Bolton MD [address] [place] [address] [place] [address] [phone] 07/06/2020 Office Visit Neurology Anum Connor A [address] [place] [address] 08/16/2020 Office Visit Obstetrics & Gynecology Marco Antonio Robledo MD [address] [facility] [address] [place] [phone] 15 Health Maintenance Due Date Last Done [...] Name Priority Date/Time Associated Diagnosis Comme nts CT ABDOMEN PELVIS W Routine 05/30/2020 9:22 AM Edwin diseas e Results for this CONTRAST CDT procedure are i n the results section. documented in this encounter Results CT ABDOMEN PELVIS W CONTRAST (05/30/2020 9:22 AM CDT) Specimen Impressions Performed At 1. No acute intra-abdominal or intrapelv ic pathology PACS/VR/DOSE 2. A large 5.5 x 6.5 cm mass in the left adnexa arising from the left ovary. Further evaluation should be cons idered with MRI of the female pelvis without and with contrast 3. Fat stratification of the colon may r epresent sequela of chronic inflammation. 4. Left nephrolithiasis without evidence of hydronephrosis 5. Small left paraumbilical hernia defec t with herniation of fat Narrative Performed At EXAM: CT SCAN OF THE ABDOMEN AND PELVIS WITH CONTRAST PACS/VR/DOSE HISTORY: Adrenal cortical insufficiency TECHNIQUE:3.75 mm axial images are obtai vicky from diaphragmatic domes to symphysis pubis following intravenous administration o f 100 mL of Omnipaque 350. Sagittal and coronal reformation is carried out. COMPARISON: None Radiation Dose: DLP of 1464 mGy-cm. FINDINGS: The lung bases are clear. No pleural eff usion is present. Heart size is normal. Liver is normal in size, shape and appea beatriz. Gallbladder is normal. No calcified gallstones are seen. No bile d uct dilation is appreciated. Pancreas is normal. No ductal dilation is seen. Spleen is normal in size. Adrenal glands are normal. No nodularity is noted Kidneys are normal in size and shape. No hydronephrosi s is present. There is approximately 4 mm calcification in t he inferior pole of the left kidney. Abdominal aorta is normal in size. No free fluid or fr ee air is seen in the abdomen. No enlarged lymph nodes are seen in the retro peritoneum or in the mesentery. Small hiatal hernia is present. There is no evidence o f bowel obstruction. Fat stratification of the colon is noted. No evidence of bowel obstruction is seen. The uterus and urinary bladder are grossly normal. The re is a complex 5.6 x 5.5 x 6.5 cm mass in the left adnexa. Multiple phlebol iths are seen in the pelvis. No enlarged pelvic lymph nodes a re appreciated. A left paraumbilical hernia defect is no shaka with herniation of fat. No suspicious abnormality bones is seen. Procedure Note [facility], Radiant Results Inft User - 2019 9:43 AM CDT EXAM: CT SCAN OF THE ABDOMEN AND PELVIS WITH CONTRAST HISTORY: Adrenal cortical insufficiency TECHNIQUE:3.75 mm axial images are obtai vicky from diaphragmatic domes to symphysis pubis following intravenous ad ministration of 100 mL of Omnipaque 350. Sagittal and coronal reformation is carried out. COMPARISON: None Radiation Dose: DLP of 1464 mGy-cm. FINDINGS: The lung bases are clear. No pleural eff usion is present. Heart size is normal. Liver is normal in size, shape and appea beatriz. Gallbladder is normal. No calcified gallstones are seen. No bile d uct dilation is appreciated. Pancreas is normal. No ductal dilation i s seen. Spleen is normal in size. Adrenal glands are normal. No nodularity is noted Kidneys are normal in size and shape. No hydronephrosis is present. There is approximately 4 mm calcification in t he inferior pole of the left kidney. Abdominal aorta is normal in size. No fr ee fluid or free air is seen in the abdomen. No enlarged lymph nodes are see n in the retroperitoneum or in the mesentery. Small hiatal hernia is present. There is no evidence of bowel obstruction. Fat stratification of the colon is noted . No evidence of bowel obstruction is seen. The uterus and urinary bladder are gross ly normal. There is a complex 5.6 x 5.5 x 6.5 cm mass in the left adnexa. Mu ltiple phleboliths are seen in the pelvis. No enlarged pelvic lymph nodes a re appreciated. A left paraumbilical hernia defect is no shaka with herniation of fat. No suspicious abnormality bones is seen. IMPRESSION 1. No acute intra-abdominal or intrapelv ic pathology 2. A large 5.5 x 6.5 cm mass in the left adnexa arising from the left ovary. Further evaluation should be cons idered with MRI of the female pelvis without and with contrast 3. Fat stratification of the colon may r epresent sequela of chronic inflammation. 4. Left nephrolithiasis without evidence of hydronephrosis 5. 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
--- OUTSIDE RECORDS SUMMARY | 2020-07-21 07:20 | XMS REPORT | Summary of Care ---
:1975 Author Organization [facility] Address [address] [place] [address] Care Team Providers Name Role Phone Kaye Gupta MD Primary Care Provider Reason for Referral MRI/CAT Scan (Routine) Status Reason Specialty Diagnoses / Referred By Referred To Procedures Contact Contact Closed Diagnostic Diagnoses Intractable acute post-traumatic headache Decreased cortisol level Anum Connor ANP Radiology Procedures MR PITUITARY W WO CONTRAST [address] [place] [address] Reason for Visit MRI/CAT Scan (Routine) Status Reason Specialty Diagnoses / Referred By Referred To Procedures Contact Contact Closed Diagnostic Diagnoses Intractable acute post-traumatic headache Decreased cortisol level Anum Connor ANP Radiology Procedures MR PITUITARY W WO CONTRAST [address] [place] [address] Encounter Details Date Type Department Care Team Description 05/30/2020 Hospital Encounter [facility] Diagnostic Anum Connor ANP Arrived Imaging, [facility] [address] [phone] Allergies Active Allergy Reactions Severity [...] 2 Coronary artery (two) days. disease involving navajo coronary artery of navajo heart without angina pectoris, Essential hypertension, Dyslipidemia, [...] 27 mg by 0 Active 27 mg WAINWRIGHT MAGNESIUM mouth 3 (three) (MAG-G) tablet times [...] tabletIndications: mouth daily. Coronary artery disease involving navajo coronary artery of navajo heart with angina pectoris, Essential hypertension traZODone [...] Coronary artery for Chest pain. disease involving navajo coronary artery of navajo heart with angina pectoris TOPIRAMATE 50 mg [...] stenosis Atherosclerosis of artery Bulging lumbar disc [place] (mitral incompetence) Polycystic ovarian disease GERD (gastroesophageal [...] Family Medicine Brittnee Gupta MD [address] [phone] 06/13/2020 Nurse Visit Endocrinology Diabetes & Nurse, Bls Cbc E ndo Metabolism 06/15/2020 Office Visit Pulmonary Disease Nino Bennett DO [address] [place] [address] 06/16/2020 Office Visit Cardiology Justo Bolton MD [address] [place] [address] [place] [address] [phone] 07/06/2020 Office Visit Neurology Anum Connor A NP [address] [place] [phone] 08/16/2020 Office Visit Obstetrics & Gynecology Marco Antonio Robledo MD [address] [place] [address] [address] [place], [place] [address] [phone] Health Maintenance Due Date Last Done Comments [...] Priority Date/Time Associated Diagnosis Comme nts MR PITUITARY W WO Routine 05/30/2020 10:09 AM Intractable acut e Results for this CONTRAST CDT post-traumatic procedure are in headache the results Decreased cortisol section. level documented in this encounter Results MR PITUITARY W WO CONTRAST (05/30/2020 10:09 AM CDT) Specimen Impressions Performed At PACS/VR/DOSE [...] level Glucocorticoid deficiency documented in this encounter Administered Medications Medication Order MAR Action Action Date Dose Rate Site gadobenate dimeglumine Given 05/30/2020 10:08 AM CDT 20 mL Right Elbow (MULTIHANCE-20 mL) injection 22.4 mL 22.4 mL (0.2 mL/kg 112 kg), Intravenous, ONCE, 1 dose, 05/30/20 at 1145, Routine LORazepam (ATIVAN) tablet 2 mg Given 05/30/2020 9:40 AM CDT 2 mg 2 mg, Oral, ONCE, 1 dose, 05/30/20 at 1100, Routine documented in this encounter Insurance Payer Benefit Plan Subscriber ID Effective Phone Address Typ e / Group Dates AETNA - AETNA [id number] 2019-Prese [address] Me dicare Adv MANAGED MEDICARE ADV nt [id number] [place] [address] documented as of this encounter
--- OUTSIDE RECORDS SUMMARY | 2020-07-21 07:21 | XMS REPORT | Summary of Care ---
:1975 Author Organization [facility] Address [address] [place] [id number] Care Team Providers Name Role Phone Kaye Gupta MD Primary Care Provider Reason for Referral (Routine) Status Reason Specialty Diagnoses / Referred By Referred To Procedures Contact Contact New Request Cardiology Diagnoses POTS (postural orthostatic tachycardia syndrome) Polypharmacy Marlee Gupta Procedures CONSULT/REFERRAL CARDIOLOGY MD Kaye [address] [place] [address] [place] [address] (STAT) Status Reason Specialty Diagnoses / Referred By Referred To Procedures Contact Contact Pending Review Patient is Diagnoses Adnexal mass Sunil Gupta John Established with Procedures CONSULT/REFERRAL MASCARA MOLDER MD Fer Coronado [facility] a Specific [address] [place] [address] [facility] Provider [place] [phone] [place], [place] Phone: [phone] Phone: (Routine) Status Reason Specialty Diagnoses / Referred By Referred To Procedures Contact Contact Pending Patient is Diagnoses Chronic inflammation of colon Abnormal CT scan, colon Lianne Gupta Review Established with Procedures CONSULT/REFERRAL GASTROENTEROLOGY Abdifatah Coronado MD a Specific [address] [place] [address] [address] Rodriguez, [place] [phone] Phone: Fax: (Routine) Status Reason Specialty Diagnoses / Referred By Referred To Procedures Contact Contact New Request Urology Diagnoses Left nephrolithiasis Left flank pain Marlee Gupta Procedures CONSULT/REFERRAL UROLOGY MD Kaye [address] [place] [address] [place] [address] Reason for Visit Reason Comments TEST RESULTS Discuss Test Results Encounter Details Date Type Department Care Team Description 06/01/2020 Office Visit [facility] Pediatric Marlee Gupta A dnexal mass (Primary Dx); and Adult Primary MD Kaye Left nephrolithiasis; [address] Left flank pain; [address] [place], [place] Chronic in flammation of colon; Drive, [address] [phone] scan, colon; [place], [place] [phone] POTS (postural orthostatic tachycardia s yndrome); [phone] Polypharmacy; [phone] Intertrigo Allergies Active Allergy Reactions Severity Noted Date [...] as of this encounter (statuses as of 06/01/2020) Medications Medication Sig Dispensed Refills Start Date [...] 2 Coronary artery (two) days. disease involving jackson coronary artery of jackson heart without angina pectoris, Essential hypertension, Dyslipidemia, ORTIZ (dyspnea on exertion), Family history of premature CAD atorvastatin 80 mg Take 1 tablet by [...] T PO TID 0 09/24/2019 Active tablet pantoprazole 40 mg EC 0 09/02/2019 Active tablet CLOPIDOGREL 75 mg TAKE 1 TABLET BY 90 tablet 2 11/26/2019 Active tablet MOUTH DAILY MONTELUKAST 10 mg TAKE 1 TABLET BY 30 tablet 11 11/26/2019 Active tabletIndications: MOUTH EVERY Allergic rhinitis, EVENING unspecified seasonality, unspecified trigger magnesium gluconate Take 27 mg by 0 Active 27 mg [place] MAGNESIUM mouth 3 (three) (MAG-G) tablet times [...] tabletIndications: mouth daily. 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 disease involving jackson coronary artery of jackson heart with angina pectoris TOPIRAMATE 50 mg TAKE 3 TABLETS BY 540 tablet 3 03/30/2020 Active tabletIndications: MOUTH TWICE DAILY Migraine without aura and without status migrainosus, not intractable PRIMIDONE 50 mg TAKE 1 TABLET BY 180 tablet 3 03/30/2020 Active tabletIndications: MOUTH TWICE DAILY Migraine without aura and without status migrainosus, not intractable Additional information Patient taking differently: 50 mg Oral DAILY, Reported on 06/01/2020 9:38 AM CARTIA XT 240 mg 24 TAKE 1 [...] 1 05/26/2020 Active tablet MOUTH TWICE DAILY fluconazole 50 mg Take 1 tablet by 7 tablet 0 06/01/2020 070 Active tabletIndications: mouth daily for 7 0 Intertrigo days. diltiazem XR 120 mg Take 1 capsule by 30 capsule 11 10/07/2019 Discontinued 24 hr capsule mouth every 0 evening. proMETHazine 25 mg TK 1 T PO Q 8 H 0 08/26/20190 Discontinued tablet PRF NAUSEA OR VOM 0 documented as of this encounter (statuses as of 06/01/2020) Active Problems Problem Noted Date Adnexal mass 06/01/2020 Overview: left Left nephrolithiasis 06/01/2020 Chronic inflammation of colon 06/01/2020 Intertrigo 06/01/2020 Witten disease 05/22/2020 Fatigue, unspecified type 05/22/2020 Low [...] stenosis Atherosclerosis of artery Bulging lumbar disc [place] (mitral incompetence) Polycystic ovarian disease GERD (gastroesophageal reflux disease) Anxiety Agoraphobia Panic disorder HTN (hypertension) Gastric polyp Asthma Overview: As a child Allergic rhinitis documented as of this encounter (statuses as of 06/01/2020) Resolved Problems Problem Noted Date Resolved Date Nicotine use disorder 02/08/2019 04/20/2019 Overview: vaping Postprandial vomiting 01/04/2017 01/19/2018 documented as of this encounter (statuses as of 06/01/2020) Immunizations Name Administration Dates Next Due Influenza [...] been in contact with No / Unsure 05/31/2020 9:37 AM CDT someone who was confirmed or suspected to have Coronavirus / COVID-19? documented as of this encounter Last Filed Vital Signs Vital Sign Reading Time Taken Comments Blood Pressure 117/80 06/01/2020 9:18 AM CDT Pulse 71 06/01/2020 9:18 AM CDT Temperature - - Respiratory Rate - - Oxygen Saturation - - Inhaled Oxygen Concentration - - Weight 110.7 kg (244 lb) 06/01/2020 9:18 AM CDT Height 152.4 cm (5') 06/01/2020 9:18 AM CDT Body Mass Index 47.65 06/01/2020 9:18 AM CDT documented in this encounter Patient Instructions Patient InstructionsRneea Mascorro R - 06/01/2020 9:00 AM CDT Patient Education Coronavirus Disease 2019 (COVID-19): Prevention The best prevention is to not have contact with the SARS-CoV-2 virus. There is no vaccine yet. Canceling travel and other outings Stay informed about COVID-19 in your area. Follow local instructions about being in public. Be awareof events in your community that may be postponed or canceled, such as school and sporting events. You may be advised not to attend public gatherings. You will be advised to stay at least 6 feet from others as much as possible. This is called "social distancing." You may be advised to stay at home and isolate yourself as much as possible if COVID-19 is in your area. You may hear terms such as "self isolate, "quarantine," stay at home, senior care in place, and lockdown. The CDC advises that people should not travel to areas where there are COVID-19 outbreaks right now for any reason that is not urgent. For the most current CDC travel advisories, visit the CDC website at www.cdc.gov/coronavirus/2019- ncov/travelers.Dont go on cruises or do non-essential travel right now. When you are at home Wash your hands often. Use soap and clean, running water for at least 20 seconds. If you don't have access to soap and water, use an alcohol-based hand insurance policy clerk often. Make sure it has at least 60% alcohol. Don't touch your eyes, nose, or mouth unless you have clean hands. Dont kiss someone who is sick. If you need to cough or sneeze, do it into a tissue. Then throw the tissue into the trash. If youdon't have tissues, cough or sneeze into the bend of your elbow. When possible, don't touch "high-touch" shared surfaces such as doorknobs and handles, cabinet handles, and light switches. Clean frequently-touched home surfaces often with disinfectant. This includes desk surfaces, printers, phones, kitchen counters, tables, fridge door handle, bathroom surfaces, and any soiled surface. Closely follow disinfectant label instructions. Go to the CDCs detailed cleaning website at www.[facility].gov/coronavirus/2019-ncov/prepare/cleaning-disinfection.html. Check your home supplies. Consider keeping a 2-week supply of medicines, food, and other needed household items. Make a plan for childcare, work, and ways to stay in touch with others. Know who will help you ifyou get sick. Don't be around people who are sick. There is no evidence right now that animals spread SARS-CoV-2. But it's always a good idea to wash your hands after touching any animals. Don't touch animals that may be sick. Dont share eating or drinking utensils with sick people. If you leave home Stay at least 6 feet away from all people. When possible, don't touch "high-touch" public surfaces such as doorknobs and handles, cabinet handles, and light switches. If you touch these surfaces, try to clean them first with a disinfecting wipe. Or touch them using a tissue or paper towel. Use an alcohol-based hand insurance policy clerk often. Make sure it has at least 60% alcohol. Don't touch your eyes, nose, or mouth unless you have clean hands. If you need to cough or sneeze, do it into a tissue. Then throw the tissue into the trash. If youdon't have tissues, cough or sneeze into the bend of your elbow. Avoid public gatherings. The CDC advises wearing a cloth face mask in public. During a public health emergency, medical face masks may be reserved for healthcare workers. You may need to make a cloth face mask of your own. You can do this using a bandana, T- shirt, or other cloth. The CDC has instructions on how to make a mask. If you are at a work site Stay at least 6 feet away from all people. Don't shake hands with anyone. Dont have in-person meetings. Meet over phone or video. Wash your hands often. Use soap and clean, running water for at least 20 seconds. If you don't have access to soap and water, use an alcohol-based hand insurance policy clerk often. Make sure it has at least 60% alcohol. Don't touch your eyes, nose, or mouth unless you have clean hands. The CDC advises wearing a cloth face mask in public. During a public health emergency, medical face masks may be reserved for healthcare workers. You may need to make a cloth face mask of your own. You can do this using a bandana, T- shirt, or other cloth. The CDC has instructions on how to make a mask. When possible, don't touch "high-touch" public surfaces such as doorknobs and handles, cabinet handles, and light switches. If you touch these surfaces, clean them first with a disinfecting wipe. Ortouch them using a tissue or paper towel. Use office jaden one person at a time. Consider not having office coffee or tea, or group foods. Dont have meals in groups. Clean work surfaces often with disinfectant. This includes desk surfaces, photocopier, printer, phones, kitchen counters, fridge door handle, bathroom surfaces, and others. Dont touch other peoples personal work tools, such as phones, keyboards, pens, and other items. Dont touch other peoples eating or drinking utensils. If you need to cough or sneeze, do it into a tissue. Then throw the tissue into the trash. If youdon't have tissues, cough or sneeze into the bend of your elbow. If you feel sick in any way, go home and stay home. If you have been exposed to a person with COVID-19 If you've been exposed within that last 14 days to someone who is suspected of having COVID-19 or has tested positive for it: Call your healthcare provider and follow all instructions. Your activities and where you go likely will be restricted for up to 2 weeks. Check your community's instructions about activity restrictions. You may be directed to stay home, or "self-isolate." Take your temperature every morning and evening for at least 14 days. This is to check for fever.Keep a record of the readings. Watch for symptoms of the virus. Call your provider if you have symptoms. Call your provider first before going to any clinic or hospital. See the CDC's symptom process checker. Stay home if you are sick for any reason. When to call your healthcare provider Call your healthcare provider if think you have COVID-19 symptoms. These can include fever, cough, and trouble breathing. They may also include body aches, sore throat, or diarrhea. Dont go to a healthcare facility before speaking to a healthcare provider. Last modified date: 03/06/2020 [employer] last reviewed this educational content on 03/01/202019992964-2590 [employer]. [address] [place] [address]. All rights reserved. This information is not intended as a substitute for professional medical care. Always follow your healthcare professional's instructions. Patient Education Coronavirus Disease 2019 (COVID-19): Prevention The best prevention is to not have contact with the SARS-CoV-2 virus. There is no vaccine yet. Canceling travel and other outings Stay informed about COVID-19 in your area. Follow local instructions about being in public. Be awareof events in your community that may be postponed or canceled, such as school and sporting events. You may be advised not to attend public gatherings. You will be advised to stay at least 6 feet from others as much as possible. This is called "social distancing." You may be advised to stay at home and isolate yourself as much as possible if COVID-19 is in your area. You may hear terms such as "self isolate, "quarantine," stay at home, senior care in place, and lockdown. The CDC advises that people should not travel to areas where there are COVID-19 outbreaks right now for any reason that is not urgent. For the most current CDC travel advisories, visit the CDC website at www.cdc.gov/coronavirus/2019- ncov/travelers.Dont go on cruises or do non-essential travel right now. When you are at home Wash your hands often. Use soap and clean, running water for at least 20 seconds. If you don't have access to soap and water, use an alcohol-based hand insurance policy clerk often. Make sure it has at least 60% alcohol. Don't touch your eyes, nose, or mouth unless you have clean hands. Dont kiss someone who is sick. If you need to cough or sneeze, do it into a tissue. Then throw the tissue into the trash. If youdon't have tissues, cough or sneeze into the bend of your elbow. When possible, don't touch "high-touch" shared surfaces such as doorknobs and handles, cabinet handles, and light switches. Clean frequently-touched home surfaces often with disinfectant. This includes desk surfaces, printers, phones, kitchen counters, tables, fridge door handle, bathroom surfaces, and any soiled surface. Closely follow disinfectant label instructions. Go to the CDCs detailed cleaning website at www.c dc.gov/coronavirus/2019-ncov/prepare/cleaning-disinfection.html. Check your home supplies. Consider keeping a 2-week supply of medicines, food, and other needed household items. Make a plan for childcare, work, and ways to stay in touch with others. Know who will help you ifyou get sick. Don't be around people who are sick. There is no evidence right now that animals spread SARS-CoV-2. But it's always a good idea to wash your hands after touching any animals. Don't touch animals that may be sick. Dont share eating or drinking utensils with sick people. If you leave home Stay at least 6 feet away from all people. When possible, don't touch "high-touch" public surfaces such as doorknobs and handles, cabinet handles, and light switches. If you touch these surfaces, try to clean them first with a disinfecting wipe. Or touch them using a tissue or paper towel. Use an alcohol-based hand insurance policy clerk often. Make sure it has at least 60% alcohol. Don't touch your eyes, nose, or mouth unless you have clean hands. If you need to cough or sneeze, do it into a tissue. Then throw the tissue into the trash. If youdon't have tissues, cough or sneeze into the bend of your elbow. Avoid public gatherings. The CDC advises wearing a cloth face mask in public. During a public health emergency, medical face masks may be reserved for healthcare workers. You may need to make a cloth face mask of your own. You can do this using a bandana, T- shirt, or other cloth. The CDC has instructions on how to make a mask. If you are at a work site Stay at least 6 feet away from all people. Don't shake hands with anyone. Dont have in-person meetings. Meet over phone or video. Wash your hands often. Use soap and clean, running water for at least 20 seconds. If you don't have access to soap and water, use an alcohol-based hand insurance policy clerk often. Make sure it has at least 60% alcohol. Don't touch your eyes, nose, or mouth unless you have clean hands. The CDC advises wearing a cloth face mask in public. During a public health emergency, medical face masks may be reserved for healthcare workers. You may need to make a cloth face mask of your own. You can do this using a bandana, T- shirt, or other cloth. The CDC has instructions on how to make a mask. When possible, don't touch "high-touch" public surfaces such as doorknobs and handles, cabinet handles, and light switches. If you touch these surfaces, clean them first with a disinfecting wipe. Ortouch them using a tissue or paper towel. Use office jaden one person at a time. Consider not having office coffee or tea, or group foods. Dont have meals in groups. Clean work surfaces often with disinfectant. This includes desk surfaces, photocopier, printer, phones, kitchen counters, fridge door handle, bathroom surfaces, and others. Dont touch other peoples personal work tools, such as phones, keyboards, pens, and other items. Dont touch other peoples eating or drinking utensils. If you need to cough or sneeze, do it into a tissue. Then throw the tissue into the trash. If youdon't have tissues, cough or sneeze into the bend of your elbow. If you feel sick in any way, go home and stay home. If you have been exposed to a person with COVID-19 If you've been exposed within that last 14 days to someone who is suspected of having COVID-19 or has tested positive for it: Call your healthcare provider and follow all instructions. Your activities and where you go likely will be restricted for up to 2 weeks. Check your community's instructions about activity restrictions. You may be directed to stay home, or "self-isolate." Take your temperature every morning and evening for at least 14 days. This is to check for fever.Keep a record of the readings. Watch for symptoms of the virus. Call your provider if you have symptoms. Call your provider first before going to any clinic or hospital. See the CDC's symptom process checker. Stay home if you are sick for any reason. When to call your healthcare provider Call your healthcare provider if think you have COVID-19 symptoms. These can include fever, cough, and trouble breathing. They may also include body aches, sore throat, or diarrhea. Dont go to a healthcare facility before speaking to a healthcare provider. Last modified date: 03/06/2020 [employer] last reviewed this educational content on 03/01/202019997060-8166 [employer]. [address] [place] [address], [place] [address]. All rights reserved. This information is not intended as a substitute for professional medical care. Always follow your healthcare professional's instructions. documented in this encounter Progress Notes Marlee Gupta MD - 06/01/2020 9:00 AM CDT Cc: Chief Complaint Patient presents with TEST RESULTS Discuss Test Results HPI Yanci Man is a 45 year old female who presents today for discussion of test results. She recently had a CT scan of her abdomen and pelvis and it was significant for a left kidney stone, left adnexal mass, and colonic fat stranding. She admits to chronic left flank pain. Additionally she voices concerns about her POTS and her multiple cardiovascular medications. She would like to discontinue any medications she doesn't need. She has upcoming f/u with her General Cost Manager Dr. Bolton but she also wants the opinion of her business specialist Dr. Finnegan regardingher POTS and her current medication regimen, so she requests a referral to aid in getting an appointment with him. She also c/o a persistent rash under her breasts. The rash gets red, itchy, and moist and worsens with increased heat/sweating. Nystatin ointment helps some but hasn't resolved it. Allergies Yanci is allergic to adhesive tape-silicones; amitriptyline; doxycycline; erythromycin; lyrica [pregabalin]; and mushroom. Medications Outpatient Medications Prior to Visit Medication Sig Dispense Refill RANOLAZINE 1,000 mg tablet TAKE 1 TABLET BY MOUTH TWICE DAILY 180 tablet 1 nystatin 100,000 unit/gram ointment Apply to area(s) [...] TAKE 1 TABLET BY MOUTH TWICE DAILY (Patient taking differently: Take 50 mg by mouth daily.) 180 tablet 3 TOPIRAMATE 50 mg tablet [...] 60 Each 11 magnesium gluconate 27 mg [place] MAGNESIUM (MAG-G) tablet Take 27 mg by mouth 3 (three) times daily. CLOPIDOGREL 75 mg tablet TAKE 1 TABLET BY MOUTH DAILY 90 tablet 2 MONTELUKAST 10 mg tablet TAKE 1 TABLET BY MOUTH EVERY EVENING 30 tablet 11 Diclofenac Sodium 1 % gel BLAINE 2 GRAMS EXT AA QID 0 HYDROcodone-acetaminophen 7.5-325 mg per tablet TK 1 T PO BID. 0 pantoprazole 40 mg EC tablet 0 tiZANidine 4 mg tablet TK 1 T PO TID 0 proMETHazine 25 mg tablet TK 1 T PO Q 8 H PRF NAUSEA OR VOM 0 aspirin 81 mg chewable tablet Take [...] Staphylococcus aureus (MRSA) 01/04/2018 Leiomyoma of uterus [place] (mitral incompetence) 2014 JOSE (obstructive sleep apnea) Panic disorder Pap smear abnormality of cervix 2000 s/p LEEP PCOS (polycystic ovarian syndrome) POTS (postural orthostatic tachycardia syndrome) 12/04/2017 Prediabetes 01/23/2018 Prinzmetal angina Seizures Spinal stenosis Urinary incontinence stress incont only Past Surgical History: Procedure Laterality Date ABDOMINAL SCAR REVISION 1997 repair and tummy tuck SECTION [id number] COLONOSCOPY 10/25/2019 COLPOSCOPY,CERVIX W/ADJ VAG,W/LOOP BX CONIZATION CERVIX,LOOP ELECTRD 1999 DEQUERVAIN'S CONTRACTURE RELEASE Right 02/26/2019 Surgeon: Thomas Ware MD; [facility] DILATION AND CURETTAGE (SHX) 1997 DRAIN OVARIAN ABSCESS,ABD APPRCH ENDOSCOPIC CARPAL TUNNEL RELEASE Right 02/26/2019 Surgeon: Thomas Ware MD; Location: [facility] ESOPHAGOGASTRODUODENOSCOPY HERNIA REPAIR Right 2004 LAPAROSCOPIC ADJUSTABLE GASTRIC BANDING 01/2000 LAPAROSCOPIC GASTRIC BAND REMOVAL 2017 OPEN CARPAL TUNNEL RELEASE Left 04/06/2018 Surgeon: Gautam Zamorano MD; [facility]: [facility] [place] PATIENT HAS A CORONARY ARTERY STENT 2015 x 3 TEAR DUCT SYSTEM SURG UNLISTED TENDON REPAIR Right ankle TRIGGER FINGER RELEASE Right 02/26/2019 Surgeon: Thomas Ware MD; Location: [facility] Social History Socioeconomic History Marital status: Spouse name: Mohsen Number of children: 1 Years of education: [...] Last attempt to quit: 01/2017 Years since quittin.4 Smokeless tobacco: Never Used Tobacco comment: quit [...] file Gets together: Not on file Attends episcopalian service: Not on file Active member of [...] Social History Narrative Lives at home with Pentecostalism Preference: Hindu Family History Problem Relation Age of Onset [...] see comments NoFHx Review of Systems Constitutional: Negative. HENT: Negative. Eyes: Negative. Respiratory: Negative. Cardiovascular: Negative. Gastrointestinal: Negative. Genitourinary: Positive for flank pain. Musculoskeletal: Positive for arthralgias and back pain. Skin: Positive for rash. Neurological: Negative. Psychiatric/Behavioral: Negative. Endocrine: Endocrine negative Vital Signs BP 117/80 | Pulse 71 | Ht 5' (1.524 m) | Wt 244 lb (110.7 kg) | BMI 47.65 kg/m Physical Exam Nursing note and vitals reviewed. Discussion in lieu of physical examination. Labs Advertising Copywriter Visit on 05/11/2020 Component Date Value ACTH 05/11/2020 8.8 METANEPH 05/11/2020 <0.10 NORMETNEPH 05/11/2020 0.57 METAPF INT 05/11/2020 See Note ESR 05/11/2020 6 CK 05/11/2020 45 URIC ACID 05/11/2020 4.9 TOTAL BILI 05/11/2020 0.3 BILI UNCON 05/11/2020 0.3 BILI CONJ 05/11/2020 0.0 T PROTEIN 05/11/2020 6.5 ALBUMIN 05/11/2020 4.1 ALK PHOS 05/11/2020 48 ALTv 05/11/2020 20 AST(SGOT) 05/11/2020 20 IRON 05/11/2020 76 ARSENIC 05/11/2020 <10.0 LEAD 05/11/2020 <2.0 HG(BLOOD) 05/11/2020 <2.5 TOMAS 0 05/11/2020 1.1* TOMAS 30 05/11/2020 3.9 TOMAS 60 05/11/[address] Abdomen Pelvis W Contrast Result Date: 05/30/2020 1. No acute intra-abdominal or intrapelvic pathology 2. A large 5.5 x 6.5 cm mass in the left adnexaarising from the left ovary. Further evaluation should be considered with MRI of the female pelvis without and with contrast 3. Fat stratification of the colon may represent sequela of chronic inflammation. 4. Left nephrolithiasis without evidence of hydronephrosis 5. Small left paraumbilical hernia defect with herniation of fat Mr Brain W Wo Contrast Result Date: 05/30/2020 No acute intracranial abnormality. No pituitary abnormality identified. Preliminary Report Dictated by Resident: Lin Chi MD., have reviewed this study and agree with the above report. Mr Pituitary W Wo Contrast Result Date: 05/30/2020 No acute intracranial abnormality. No pituitary abnormality identified. Preliminary Report Dictated by Resident: Lin Chi MD., have reviewed this study and agree with the above report. Assessment/Plan Diagnoses and all orders for this visit: Adnexal mass I recommended DUARTE evaluation and management by her PIN MACHINE OPERATOR specialist and a referral has been initiated. - CONSULT/REFERRAL MASCARA MOLDER Left nephrolithiasis, Left flank pain I recommended evaluation and management by a Urology specialist and a referral has been initiated. - CONSULT/REFERRAL UROLOGY Chronic inflammation of colon, Abnormal CT scan, colon I recommended evaluation and management by her GI specialist and a referral has been initiated. - CONSULT/REFERRAL GASTROENTEROLOGY POTS (postural orthostatic tachycardia syndrome), Polypharmacy Management per Cardiology/EP. Follow-up with General Cardiology as scheduled and I have entered a referral for a f/u appointment with her business specialist. - CONSULT/REFERRAL CARDIOLOGY Intertrigo Antifungal medication(s) was prescribed as noted. The patient was instructed to keep the skin cleanand dry and to wear cotton clothing to help prevent recurrence. - fluconazole 50 mg tablet; Take 1 tablet by mouth daily for 7 days (lower dose was prescribed given the potential drug interactions with some of her other medications) Plan of care, desired health behaviors, goals, Ddx, and any prescribed medications were discussed with the patient. This visit involved counseling and coordination of care that comprised more than 50%of the visit time. I spent 28 minute(s) total time with the patient. Education resources and self-management tools were provided and reviewed with the AVS. Patient/guardian/family verbalized understanding and agrees to the plan of care. Barriers to care: None. Ability to manage care: Good. Advanced care planning (living will) information was not given/offered to the patient to review for discussion at a future visit. If applicable, the [place] [facility] database was accessed to review any controlled substance prescription claims data. If the patient is taking prescribed medications, the [employer] prescription claims data in [employer] was reviewed to assess patient compliance with the medication treatment plan. COVID-19 precautions given including frequent handwashing, social distancing, cleaning and disinfecting, indications for testing, etc. Follow-up: Return if symptoms worsen or fail to improve. Return for routine care as scheduled or previously advised. Scribe Attestation Renea Palacios , am scribing for, and in the presence of, Marlee Gupta MD who performed the services described here-in. Renea Mascorro, June 01, 2020, 9:20 AM Physician Attestation Marlee Palacios MD, personally performed the services described in this documentation , as scribed by, Renea Mascorro in my presence and it is both accurate and complete. Marlee Gupta MD June 01, 2020, 9:20 AM documented in this encounter Plan of Treatment Date Type Specialty Care Team Description 06/13/2020 Nurse Visit Endocrinology Diabetes & Nurse, Bls Cbc E ndo Metabolism 06/15/2020 Office Visit Pulmonary Disease Nino Bennett DO [address] [place] [phone] 06/16/2020 Office Visit Cardiology Justo Bolton MD [address] [place] [address] [place] [phone] 06/22/2020 Office Visit Psychiatry Janusz Koch MD [address] [place] [address]. [place] [phone] 07/06/2020 Office Visit Neurology Anum Connor A NP [address] [place] [phone] 08/16/2020 Office Visit Obstetrics & Gynecology Marco Antonio Robledo MD [address] [facility] [address] [place] [address] [place], [place] [phone] 15 Health Maintenance Due Date Last Done Comments Breast Cancer Screening (MAMMOGRAM) 02/23/2020 02/22/2019, 02/20/2018, 01/17/2017 PAP SMEAR 06/21/2020 06/21/2019, 06/21/2019, 08/01/2016 (Previously completed) INFLUENZA VACCINE (#1) 2020 10/26/2018, 09/10/2017 Depression Screening 04/19/2021 04/19/2020, 12/23/2019 DTaP,Tdap,and Td Vaccines (2 - Td) 01/09/2027 01/09/2017 PNEUMOCOCCAL 0-64 YEARS COMBINED Completed 01/09/2017 SERIES documented as of this encounter Goals Goal Patient Goal Associated Recent Patient-Stated? Author Type Problems Progress 5 lb weight General Yes cristian Gupta by next Marlee Restrepo MD visit documented as of this encounter Results Not on filedocumented in this encounter Visit Diagnoses Diagnosis Adnexal mass - Primary Other specified symptom associated with female genital organs Left nephrolithiasis Left flank pain Abdominal pain, unspecified site Chronic inflammation of colon Other and unspecified noninfectious estela roenteritis and colitis Abnormal CT scan, colon Nonspecific (abnormal) findings on radio logical and other examination of gastrointestinal tract POTS (postural orthostatic tachycardia s yndrome) Tachycardia, unspecified Polypharmacy Issue of repeat prescriptions Intertrigo Other specified erythematous condition documented in this encounter Insurance Payer Benefit Plan Subscriber ID Effective Phone Address Typ e / Group Dates AETNA - AETNA [id number] 2019-Jose [address] Me dicare Adv MANAGED MEDICARE ADV nt [id number] [place] [address] documented as of this encounter
--- OUTSIDE RECORDS SUMMARY | 2020-07-21 07:21 | XMS REPORT | Summary of Care ---
:1975 Author Organization [facility] - Health Address [address] [place] [address] Care Team Providers Name Role Phone Hong Mitchell Primary Care Provider MD Alejandra Primary Care Provider Kaye Gupta MD Primary Care Provider Encounter Details Date Type Department Care Team Description 12/07/2015 Orders Only [facility] Doctor Unassigned, No [address] [facility] [place] [address] [address] [place] [address] Allergies Active Allergy Reactions Severity Noted Date [...] this encounter (statuses as of 05/31/2020) Medications No known medicationsdocumented as of this encounter (statuses as of 05/31/2020) Active Problems Problem Noted Date 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 Fatigue, unspecified type 05/22/2020 Low [...] stenosis Atherosclerosis of artery Bulging lumbar disc [place] (mitral incompetence) Polycystic ovarian disease GERD (gastroesophageal reflux disease) Anxiety Agoraphobia Panic disorder HTN (hypertension) Gastric polyp Asthma Overview: As a child Allergic rhinitis documented as of this encounter (statuses as of 05/31/2020) Resolved Problems Problem Noted Date Resolved Date Nicotine use disorder 02/08/2019 04/20/2019 Overview: vaping Postprandial vomiting 01/04/2017 01/19/2018 documented as of this encounter (statuses as of 05/31/2020) Social History Tobacco Use Types Packs/Day Years Used Date Never Assessed Sex Assigned at Date Recorded Not on [...] Description 06/01/2020 Office Visit Family Medicine Brittnee Gutpa MD [address] [phone] 06/13/2020 Nurse Visit Endocrinology Diabetes & Nurse, Bls Cbc E ndo Metabolism 06/15/2020 Office Visit Pulmonary Disease Nino Bennett, [address] [place] [phone] 06/16/2020 Office Visit Cardiology Justo Bolton MD [address] [facility] [address] [place] [address] [place] [phone] 07/06/2020 Office Visit Neurology Anum Connor A [address] [phone] 08/16/2020 Office Visit Obstetrics & Gynecology Marco Antonio Robledo MD [address] [facility] [address] [place] [address] [place] [phone] 15 Health Maintenance Due Date Last Done [...] Name Priority Date/Time Associated Diagnosis Comme nts EXTERNAL PROVIDER Routine 12/07/2015 12:01 AM PE MANAGER RECORDS documented in this encounter Results Not on filedocumented in this encounter Additional Health Concerns Infection Onset Date Last Indicated Resolved Time Contact- MRSA 01/04/2018 01/04/2018 11/01/2019 10:54 AM PE MANAGER documented as of this encounter Insurance Payer Benefit Plan / Subscriber ID Effective Dates Phone Addre ss Type Group [facility] [id number] 2015-11/30/ O [place] 2015 documented as of this encounter
--- OUTSIDE RECORDS SUMMARY | 2020-07-21 07:22 | XMS REPORT | Summary of Care ---
:1975 Author Organization [facility] - Health Address [address] [place] [address] Care Team Providers Name Role Phone Kaye Gupta MD Primary Care Provider Encounter Details Date Type Department Care Team Description 06/08/2020 Orders Only [facility] Doctor Unassigned, No [address] [place] [address] [address] [phone] Allergies Active Allergy Reactions Severity Noted Date [...] as of this encounter (statuses as of 06/08/2020) Medications Medication Sig Dispensed Refills Start Date [...] 2 Coronary artery (two) days. disease involving [place] coronary artery of [place] heart without angina pectoris, Essential hypertension, Dyslipidemia, [...] 27 mg by 0 Active 27 mg LOWER BRULE MAGNESIUM mouth 3 (three) (MAG-G) tablet times [...] tabletIndications: mouth daily. Coronary artery disease involving [place] coronary artery of [place] heart with angina pectoris, Essential hypertension traZODone [...] Coronary artery for Chest pain. disease involving [place] coronary artery of [place] heart with angina pectoris TOPIRAMATE 50 mg [...] 9:38 AM CARTIA XT 240 mg 24 hr TAKE 1 CAPSULE BY 90 capsule 1 05/05/20 20 Active capsule MOUTH EVERY MORNING proMETHazine 25 mg Take 1 tablet by 90 tablet 6 05/09/2020 Active tabletIndications: mouth every 4 Migraine without aura (four) hours as and without status needed (N/V or migrainosus, not migraine headache). intractable, Intractable acute post-traumatic headache isosorbide mononitrate Take 1 tablet by 90 tablet 0 05/15/2020 Active 120 mg 24 hr mouth every tabletIndications: morning. 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 ointmentIndications: Yeast infection RANOLAZINE 1,000 mg TAKE 1 TABLET BY 180 tablet 1 05/26/2020 Active tablet MOUTH TWICE DAILY fluconazole 50 mg Take 1 tablet by 7 tablet 0 06/01/2020 07/0 08/2020 Active tabletIndications: mouth daily for 7 Intertrigo days. 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 Fatigue, unspecified type 05/22/2020 Low [...] stenosis Atherosclerosis of artery Bulging lumbar disc [place] (mitral incompetence) Polycystic ovarian disease GERD (gastroesophageal reflux disease) Anxiety Agoraphobia Panic disorder HTN (hypertension) Gastric polyp Asthma Overview: As a child Allergic rhinitis documented as of this encounter (statuses as of 06/08/2020) Resolved Problems Problem Noted Date Resolved Date Nicotine use disorder 02/08/2019 04/20/2019 Overview: vaping Postprandial vomiting 01/04/2017 01/19/2018 documented as of this encounter (statuses as of 06/08/2020) Immunizations Name Administration Dates Next Due Influenza [...] Office Visit Pulmonary Disease Nino Bennett DO [address] [place] [phone] 06/16/2020 Office Visit Cardiology Justo Bolton MD [address] [phone] 06/22/2020 Office Visit Psychiatry Janusz Koch MD [address] [place] [address]. [place] [phone] 07/06/2020 Office Visit Neurology Anum Connor A NP [address] [place] [phone] Health Maintenance Due Date Last Done Comments [...] Associated Diagnosis Comme nts EXTERNAL PROVIDER Routine 06/08/2020 12:01 AM CDT RECORDS documented in this encounter Results Not on filedocumented in this encounter Insurance Payer Benefit Plan Subscriber ID Effective Phone Address Typ e / Group Dates AETNA - AETNA [id number] 2019-Prese [address] Me dicare Adv MANAGED MEDICARE ADV [place] [id number] [place] [address] documented as of this encounter
--- OUTSIDE RECORDS SUMMARY | 2020-07-21 07:22 | XMS REPORT | Summary of Care ---
:1975 Author Organization [facility] - Health Address [address] [place] [address] Care Team Providers Name Role Phone Kaye Gupta MD Primary Care Provider Encounter Details Date Type Department Care Team Description 05/10/2020 Orders Only [facility] Doctor Unassigned, No 301 [facility] [place] [address] [address] [phone] Allergies Active Allergy Reactions Severity Noted Date [...] as of this encounter (statuses as of 06/06/2020) Medications Medication Sig Dispensed Refills Start Date [...] 2 Coronary artery (two) days. disease involving [place] coronary artery of [place] heart without angina pectoris, Essential hypertension, Dyslipidemia, [...] 27 mg by 0 Active 27 mg [place] MAGNESIUM mouth 3 (three) (MAG-G) tablet times [...] tabletIndications: mouth daily. Coronary artery disease involving [place] coronary artery of [place] heart with angina pectoris, Essential hypertension traZODone [...] Coronary artery for Chest pain. disease involving [place] coronary artery of [place] heart with angina pectoris TOPIRAMATE 50 mg [...] mg 24 hr TAKE 1 CAPSULE BY MOUTH 90 capsule 1 Active capsule EVERY MORNING proMETHazine 25 mg Take 1 tablet by mouth 90 tablet 6 05/09/20 20 Active tabletIndications: Migraine every 4 (four) hours as without aura and without needed (N/V or migraine status migrainosus, not headache). 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 Fatigue, unspecified type 05/22/2020 [...] stenosis Atherosclerosis of artery Bulging lumbar disc [place] (mitral incompetence) Polycystic ovarian disease GERD (gastroesophageal reflux disease) Anxiety Agoraphobia Panic disorder HTN (hypertension) Gastric polyp Asthma Overview: As a child Allergic rhinitis documented as of this encounter (statuses as of 06/06/2020) Resolved Problems Problem Noted Date Resolved Date Nicotine use disorder 02/08/2019 04/20/2019 Overview: vaping Postprandial vomiting 01/04/2017 01/19/2018 documented as of this encounter (statuses as of 06/06/2020) Immunizations Name Administration Dates Next Due Influenza [...] Visit Pulmonary Disease Nino Bennett DO [address] [place] [phone] 06/16/2020 Office Visit Cardiology Justo Bolton MD [address] [place] [address] [place] [phone] 06/22/2020 Office Visit Psychiatry Janusz Koch MD [address] [place] [address]. [place] [phone] 07/06/2020 Office Visit Neurology Anum Connor A NP [address] [place] [phone] Health Maintenance Due Date Last Done [...] lb weight General Yes Candy, loss by arnulfo Restrepo MD visit documented as of this encounter Procedures Procedure Name Priority Date/Time Associated Diagnosis Comme nts MEDICATION CORRESPONDENCE Routine 05/10/2020 12:01 AM CDT documented in this encounter Results Not on filedocumented in this encounter Insurance Payer Benefit Plan Subscriber ID Effective Phone Address Typ e / Group Dates AETNA - AETNA [id number] 2019-Prese [address] Me dicare Adv MANAGED MEDICARE ADV nt [id number] [place] [address] documented as of this encounter
--- OUTSIDE RECORDS SUMMARY | 2020-07-21 07:22 | XMS REPORT | Summary of Care ---
:1975 Author Organization [facility] Address [address] [place] [address] Care Team Providers Name Role Phone Kaye Gupta MD Primary Care Provider Reason for Referral (Routine) Status Reason Specialty Diagnoses / Referred By Referred To Procedures Contact Contact New Request Cardiology Diagnoses POTS (postural orthostatic tachycardia syndrome) Polypharmacy Marlee Gupta Procedures CONSULT/REFERRAL CARDIOLOGY MD Kaye [address] [place] [address] [place] [address] (STAT) Status Reason Specialty Diagnoses / Referred By Referred To Procedures Contact Contact Pending Review Patient is Diagnoses Adnexal mass Sunil Gupta John Established with Procedures CONSULT/REFERRAL SHOP TAILOR APPRENTICE MD Fer Coronado [facility] a Specific [address] [place] [address] [address] Provider [place] [phone] [place] Phone: [phone] Phone: (Routine) Status Reason Specialty Diagnoses / Referred By Referred To Procedures Contact Contact Pending Patient is Diagnoses Chronic inflammation of colon Abnormal CT scan, colon Lianne Gupta Review Established with Procedures CONSULT/REFERRAL GASTROENTEROLOGY Abdifatah Coronado MD a Specific [address] [place] [address] [address], [place] [phone] Phone: Fax: (Routine) Status Reason Specialty Diagnoses / Referred By Referred To Procedures Contact Contact New Request Urology Diagnoses Left nephrolithiasis Left flank pain Marlee Gupta Procedures CONSULT/REFERRAL UROLOGY MD Kaye [address] [place] [address] [facility] [phone] Reason for Visit Reason Comments TEST RESULTS Discuss Test Results Encounter Details Date Type Department Care Team Description 06/01/[address] Office [address] [facility] Pediatric Marlee Gupta A dnexal mass (Primary Dx); and Adult Primary MD Kaye Left nephrolithiasis; [address] Left flank pain; [address] [place], [place] Chronic in flammation of colon; Drive, [address] [phone] scan, colon; [place], [place] [phone] POTS (postural orthostatic tachycardia s yndrome); [phone] Polypharmacy; [phone] Intertr[facility] Allergies Active Allergy Reactions Severity Noted [...] 2 Coronary artery (two) days. disease involving [place] coronary artery of [place] heart without angina pectoris, Essential hypertension, Dyslipidemia, [...] 27 mg by 0 Active 27 mg SENECA MAGNESIUM mouth 3 (three) (MAG-G) tablet times [...] tabletIndications: mouth daily. Coronary artery disease involving [place] coronary artery of [place] heart with angina pectoris, Essential hypertension traZODone [...] Coronary artery for Chest pain. disease involving [place] coronary artery of [place] heart with angina pectoris TOPIRAMATE 50 mg [...] Chronic inflammation of colon 06/01/2020 Intertrigo 06/01/2020 [place] disease 05/22/2020 Fatigue, unspecified type 05/22/2020 Low [...] stenosis Atherosclerosis of artery Bulging lumbar disc OR (mitral incompetence) Polycystic ovarian disease GERD (gastroesophageal [...] documented in this encounter Patient Instructions Patient InstructionsRenea Mascorro R - 06/01/2020 9:00 AM CDT [...] as "self isolate, "quarantine," stay at home, group home in place, and lockdown. The CDC advises [...] soap and water, use an alcohol-based hand egg gatherer often. Make sure it has at least [...] to the CDCs detailed cleaning website at www.[facility].gov/coronavirus/2019-ncov/prepare/cleaning-disinfection.html. Check your home supplies. Consider keeping [...] or paper towel. Use an alcohol-based hand egg gatherer often. Make sure it has at least [...] soap and water, use an alcohol-based hand egg gatherer often. Make sure it has at least [...] clinic or hospital. See the CDC's symptom insurance checker. Stay home if you are sick for any reason. When to call your healthcare provider Call your healthcare provider if think you have COVID-19 symptoms. These can include fever, cough, and trouble breathing. They may also include body aches, sore throat, or diarrhea. Dont go to a healthcare facility before speaking to a healthcare provider. Last modified date: 03/06/2020 [employer] last reviewed this educational content on 03/01/202019998834-5415 [employer] [address] [place] [address]. All rights reserved. This information is not [...] as "self isolate, "quarantine," stay at home, group home in place, and lockdown. The CDC advises [...] soap and water, use an alcohol-based hand egg gatherer often. Make sure it has at least [...] or paper towel. Use an alcohol-based hand egg gatherer often. Make sure it has at least [...] soap and water, use an alcohol-based hand egg gatherer often. Make sure it has at least [...] clinic or hospital. See the CDC's symptom insurance checker. Stay home if you are sick [...] Nam last reviewed this educational content on 03/01/202019998524-5009 [employer] [address] [place] [address], [place] [address]. All rights reserved. This information is not [...] She has upcoming f/u with her General Online Community Manager Dr. Bolton but she also wants the opinion of her internet ecommerce specialist Dr. Finnegan regardingher POTS and her [...] 60 Each 11 magnesium gluconate 27 mg SENECA MAGNESIUM (MAG-G) tablet Take 27 mg by [...] Staphylococcus aureus (MRSA) 01/04/2018 Leiomyoma of uterus OR (mitral incompetence) 2014 JOSE (obstructive sleep apnea) Panic disorder Pap smear abnormality of cervix 2000 s/p LEEP PCOS (polycystic ovarian syndrome) POTS (postural orthostatic tachycardia syndrome) 12/04/2017 Prediabetes 01/23/2018 Prinzmetal angina Seizures Spinal stenosis Urinary incontinence stress incont only Past Surgical History: Procedure Laterality Date ABDOMINAL SCAR REVISION 1997 repair and tummy tuck SECTION [id number] COLONOSCOPY 10/25/2019 COLPOSCOPY,CERVIX W/ADJ VAG,W/LOOP BX CONIZATION [...] MD; Location: [facility] PATIENT HAS A CORONARY ARTERY STENT 2015 [...] file Gets together: Not on file Attends episcopal service: Not on file Active member of [...] Social History Narrative Lives at home with Latter Day Preference: Gnosticist Family History Problem Relation Age of Onset [...] Discussion in lieu of physical examination. Labs Renal Nurse Visit on 05/11/2020 Component Date Value ACTH [...] recommended DUARTE evaluation and management by her PIPE FITTER HELPER specialist and a referral has been initiated. - CONSULT/REFERRAL SHOP TAILOR APPRENTICE Left nephrolithiasis, Left flank pain I recommended [...] referral for a f/u appointment with her internet ecommerce specialist. - CONSULT/REFERRAL CARDIOLOGY Inter[facility] Antifungal medication(s) [...] at a future visit. If applicable, the [place] [employer] database was accessed to review any controlled substance prescription claims data. If the patient is taking prescribed medications, the [employer] prescription claims data in [employer] was reviewed to assess patient compliance with [...] Office Visit Pulmonary Disease Nino Bennett DO [address] [place] [phone] 06/16/2020 Office Visit Cardiology Justo Bolton MD [address] HU[place]ON [address] [place] [phone] 06/22/2020 Office Visit Psychiatry Janusz Koch MD [address] [place] [address]. [place] [phone] 07/06/2020 Office Visit Neurology Anum Connor A NP [address] [place] [phone] 08/16/2020 Office Visit Obstetrics & Gynecology Marco Antonio Robledo MD [address] [place] [address] [place], [place] [phone] 15 Health Maintenance Due Date Last Done [...] e / Group Dates AETNA - AETNA [id number] 2019-Jose [address] Me dicare Adv MANAGED MEDICARE ADV nt [id number] [place] [address] documented as of this encounter
--- OUTSIDE RECORDS SUMMARY | 2020-07-21 07:23 | XMS REPORT | Summary of Care ---
:1975 Author Organization [facility] Address [address] [place] [address] Care Team Providers Name Role Phone Kaye Gupta MD Primary Care Provider Encounter Details Date Type Department Care Team Description 05/09/2020 Patient Secure Msg [facility] Health Radiolog y Doctor Unassigned, [address] [place] [phone] [facility] [phone] [place] [address] Allergies Active Allergy Reactions Severity Noted Date [...] as of this encounter (statuses as of 06/10/2020) Medications Medication Sig Dispensed Refills Start Date [...] 2 Coronary artery (two) days. disease involving [place] coronary artery of [place] heart without angina pectoris, Essential hypertension, Dyslipidemia, [...] 27 mg by 0 Active 27 mg ORUTSARARMIUT MAGNESIUM mouth 3 (three) (MAG-G) tablet times [...] tabletIndications: mouth daily. Coronary artery disease involving [place] coronary artery of [place] heart with angina pectoris, Essential hypertension traZODone [...] Coronary artery for Chest pain. disease involving [place] coronary artery of [place] heart with angina pectoris TOPIRAMATE 50 mg [...] as of this encounter (statuses as of 06/10/2020) Active Problems Problem Noted Date Adnexal mass [...] stenosis Atherosclerosis of artery Bulging lumbar disc [place] (mitral incompetence) Polycystic ovarian disease GERD (gastroesophageal reflux disease) Anxiety Agoraphobia Panic disorder HTN (hypertension) Gastric polyp Asthma Overview: As a child Allergic rhinitis documented as of this encounter (statuses as of 06/10/2020) Resolved Problems Problem Noted Date Resolved Date Nicotine use disorder 02/08/2019 04/20/2019 Overview: vaping Postprandial vomiting 01/04/2017 01/19/2018 documented as of this encounter (statuses as of 06/10/2020) Immunizations Name Administration Dates Next Due Influenza [...] Visit Pulmonary Disease Nino Bennett DO [address] [place] [address] 06/16/2020 Office Visit Cardiology Justo Bolton MD [address] [place] [address] [place], [place] [address] [phone] 06/22/2020 Office Visit Psychiatry Janusz Koch MD [address] [place] [address]. [place] [phone] 07/06/2020 Office Visit Neurology Anum Connor A NP [address] [place] [phone] Health Maintenance Due Date Last Done Comments [...] e / Group Dates AETNA - AETNA [id number] 2019-Prese [address] Me dicare Adv MANAGED MEDICARE ADV nt [id number] [place] [address] documented as of this encounter
--- OUTSIDE RECORDS SUMMARY | 2020-07-21 07:24 | XMS REPORT | Summary of Care ---
:1975 Author Organization [facility] - [facility] Address [address] [place] [id number] Care Team Providers Name Role Phone Kaye Gupta MD Primary Care Provider Reason for Visit Reason Comments Diarrhea pt had ACTH Stimulation Test done on 06/13/20 had has been sick ever since Vomiting Rash Encounter Details Date Type Department Care Team Description 06/20/2020 Urgent Care [facility] Family Thania Roberson, RECRUITER [address] [address] Diarrhea, unspecified type (Primary Dx); [place] [address], Acute Care Clinic Suspected Covid-19 Virus Infection [address] [place] [address] Allergies Active Allergy Reactions Severity Noted Date [...] as of this encounter (statuses as of 06/20/2020) Medications Medication Sig Dispensed Refills Start Date [...] 2 Coronary artery (two) days. disease involving ely shoshone coronary artery of ely shoshone heart without angina pectoris, Essential hypertension, [...] 27 mg by 0 Active 27 mg NORTHWESTERN SHOSHONE MAGNESIUM mouth 3 (three) (MAG-G) tablet times [...] tabletIndications: mouth daily. Coronary artery disease involving ely shoshone coronary artery of ely shoshone heart with angina pectoris, Essential hypertension traZODone 100 mg Take one to two 180 tablet 1 01/25/2020 Active tabletIndications: tablets at night Insomnia due to as needed for medical condition insomnia diltiazem 120 mg 24 TK 1 C PO QPM 0 01/02/2020 Active hr capsule busPIRone 5 mg Take 4 tablets by 360 tablet 2 02/17/2020 Active tabletIndications: mouth three times Generalized anxiety per day disorder nitroglycerin Place 1 tablet 1 Bottle 3 02/22/2020 Active (NITROSTAT) 0.4 mg under the tongue sublingual every 5 (five) tabletIndications: minutes as needed Coronary artery for Chest pain. disease involving ely shoshone coronary artery of ely shoshone heart with angina pectoris TOPIRAMATE 50 [...] Oral DAILY, Reported on 06/01/2020 9:38 AM proMETHazine 25 mg Take 1 tablet by mouth 90 tablet 6 05/09/20 20 Active tabletIndications: Migraine every 4 (four) hours without aura and without as needed (N/V or status migrainosus, not migraine headache). intractable, Intractable acute post-traumatic headache isosorbide mononitrate 120 mg Take 1 tablet by mouth 90 tablet 0 05/15/2020 Active 24 hr tabletIndications: every morning. Morbid obesity with body mass index of 40.0-49.9, Coronary artery disease involving autologous artery coronary bypass graft without angina pectoris nystatin 100,000 unit/gram Apply to area(s) 2 30 g 1 Active ointmentIndications: Yeast (two) times daily. infection RANOLAZINE 1,000 mg tablet TAKE 1 TABLET BY MOUTH 180 tablet 1 05/26/2020 Active TWICE DAILY documented as of this encounter (statuses as of 06/20/2020) Active Problems Problem Noted Date Adnexal mass 06/01/2020 Overview: left Left nephrolithiasis 06/01/2020 Chronic inflammation of colon 06/01/2020 Intertrigo 06/01/2020 Long disease 05/22/2020 Fatigue, unspecified type 05/22/2020 Low [...] stenosis Atherosclerosis of artery Bulging lumbar disc IL (mitral incompetence) Polycystic ovarian disease GERD (gastroesophageal reflux disease) Anxiety Agoraphobia Panic disorder HTN (hypertension) Gastric polyp Asthma Overview: As a child Allergic rhinitis documented as of this encounter (statuses as of 06/20/2020) Resolved Problems Problem Noted Date Resolved Date Nicotine use disorder 02/08/2019 04/20/2019 Overview: vaping Postprandial vomiting 01/04/2017 01/19/2018 documented as of this encounter (statuses as of 06/20/2020) Immunizations Name Administration Dates Next Due Influenza [...] been in contact with No / Unsure 06/20/2020 1:42 PM CDT someone who was confirmed or suspected to have Coronavirus / COVID-19? documented as of this encounter Last Filed Vital Signs Vital Sign Reading Time Taken Comments Blood Pressure 136/95 06/20/2020 1:43 PM CDT Pulse 81 06/20/2020 1:43 PM CDT Temperature 36.6 C (97.8 F) 06/20/2020 1:43 PM CDT Respiratory Rate 18 06/20/2020 1:43 PM CDT Oxygen Saturation 98% 06/20/2020 1:43 PM CDT Inhaled Oxygen Concentration - - Weight 110.7 kg (244 lb) 06/20/2020 1:43 PM CDT Height 152.4 cm (5') 06/20/2020 1:43 PM CDT Body Mass Index 47.65 06/20/2020 1:43 PM CDT documented in this encounter Patient Instructions Patient InstructionsMaureen Bryan FNP - 06/20/2020 1:40 PM CDT1. Diarrhea, unspecified type - continue promethazine as needed. - keep hydrated - Follow up with PCP, urgent care or ER in 2-3 days or sooner if symptoms do now improve or worsens.Patient/parent verbalized understanding and agreed with plan of care. 2. Suspected Covid-19 Virus Infection - COVID-19 (PCR MOLECULAR TESTING); Future - COVID-19 (PCR MOLECULAR TESTING) - Quarantine until your COVID results are back Criteria met - Covid testing - pending. This test can take 2-3 days to be resulted. While the test is pending...Please socially isolate your self - do not go out to stores or out in public. We will contact you once we have the results. If you are negative - continue with symptomatic treatment. (see below) Patients who have positive results will be contacted by the health department to enforce quarantine measures and for additional community contact tracing. The Infection Control Department will also undertake evaluation of exposures in our healthcare facility. If symptoms worsen - please call your Primary Care Doctor - do not go into the clinic. Call first. Educated on the following at home care: - Discussed likely viral diagnosis and treatment plan with pt. - pt advised on frequent effective handwashing - pt advised to increase fluid intake , stay hydrated and get plenty of rest. - advised to have the pt take OTC to treat symptoms. - Pt advised to administer Tylenol as per label recommendation as needed for pain or fever - Cover mouth when coughing, wear mask - Stay in your own bedroom and use a separate bathroom - Keep at least 6 feet from you and others - Avoid sharing personal household items, dishes, glasses, cups, towels -Clean high traffic/touch areas daily. These include but not limited to: doorknobs, refrigerator/cabinet handles, phones, keyboards, tablets, light switches. - AVS and Written/handout materials appropriate to problem and teaching provided. - advised to go to the nearest Emergency Department sooner for any new, worsening, persistent, or concerning symptoms - Patient verbalized understanding of all instructions - Follow-up with PCP as needed, if no improvement EDUCATION: Handouts given: Patient educated on plan of care for visit, swabbing technique,risks and benefits of test and lengthof time to receive results. Verbal consent obtained to perform test. CDC Fact Sheet for patients nCoV Diagnostic Panel dated 02/13/2020 provided. "What to do if you are sick with COVID-19" CDC information guide reviewed with the patient and handout given to patient Education given to self quarantine until results are back. Will notify patient with results. Patient states understanding and all questions answered. Plan of care, goals and medications discussed with patient. Patient voices understanding. Barriers to care: none Ability to manage care: good FOLLOW UP: Pt advised to call 911 or go to the nearest Emergency Department sooner for any worsening, persistent, or concerning symptoms ER precautions given documented in this encounter Progress Notes Maureen Bryan FNP - 06/20/2020 1:40 PM CDT Cc: Chief Complaint Patient presents with Diarrhea pt had ACTH Stimulation Test done on 06/13/20 had has been sick ever since Vomiting Rash Yanci Man is a 45 year old female presents with concern for diarrhea and vomiting. She's having diarrhea and vomiting for about 1 week since she had cosyntropin stimulation test. She had this medication before and it made her sick as well. Her diarrhea is watery and she's going about 6-8 times daily. She's vomiting after eating. She's taking imodium and phenergan with some improvement.She denies any abdomen pain at this time. Tolerating fluids and having normal urine output. Denies any fever, chills or body aches. Denies any blood in stool or emesis. Denies any sick contacts. Diarrhea Quality: Watery Severity: Mild Onset quality: Gradual Number of episodes: 6-8 Duration: 1 week Timing: Intermittent Progression: Unchanged Relieved by: Anti-motility medications Worsened by: Nothing Associated symptoms: vomiting Associated symptoms: no abdominal pain, no arthralgias, no chills, no recent cough, no diaphoresis, no fever, no headaches, no myalgias and no URI Risk factors: no recent antibiotic use, no sick contacts, no suspicious food intake and no travel toendemic areas Allergies Yanci is allergic to adhesive tape-silicones; [...] needed (N/V or migraineheadache). 90 tablet 6 PRIMIDONE 50 mg tablet TAKE 1 TABLET [...] three times per day 360 tablet 2 diltiazem 120 mg 24 hr capsule TK [...] 60 Each 11 magnesium gluconate 27 mg NORTHWESTERN SHOSHONE MAGNESIUM (MAG-G) tablet Take 27 mg by [...] by mouth every morning. 90 tablet 3 bumetanide 1 mg tablet Take 1 tablet [...] to methicillin resistant Staphylococcus aureus (MRSA) 01/04/2018 Left nephrolithiasis 06/01/2020 Leiomyoma of uterus IL (mitral incompetence) 2014 JOSE (obstructive sleep apnea) Panic disorder Pap smear abnormality of cervix 1999 s/p LEEP PCOS (polycystic ovarian syndrome) POTS (postural orthostatic tachycardia syndrome) 12/04/2017 Prediabetes 01/23/2018 Prinzmetal angina Seizures Spinal stenosis Urinary incontinence stress incont only Past Surgical History: Procedure Laterality Date ABDOMINAL SCAR REVISION 1997 repair and tummy tuck SECTION [id number] COLONOSCOPY 10/25/2019 COLPOSCOPY,CERVIX W/ADJ VAG,W/LOOP BX CONIZATION CERVIX,LOOP ELECTRD 1999 DEQUERVAIN'S CONTRACTURE RELEASE Right 02/26/2019 Surgeon: Thomas Ware MD; Location: [facility] DILATION AND CURETTAGE (SHX) 1998 DRAIN OVARIAN ABSCESS,ABD APPRCH ENDOSCOPIC CARPAL TUNNEL RELEASE Right 02/26/2019 Surgeon: Thomas Ware MD; Location: [facility] ESOPHAGOGASTRODUODENOSCOPY HERNIA REPAIR Right 2004 LAPAROSCOPIC ADJUSTABLE GASTRIC BANDING 01/2000 LAPAROSCOPIC GASTRIC BAND REMOVAL 2017 OPEN CARPAL TUNNEL RELEASE Left 04/06/2018 Surgeon: Gautam Zamorano MD; Location[facility] DC PATIENT HAS A CORONARY ARTERY STENT 2015 x 3 TEAR DUCT SYSTEM SURG UNLISTED TENDON REPAIR Right ankle TRIGGER FINGER RELEASE Right 02/26/2019 Surgeon: Thomas Ware MD; Location: [facility] Social History Socioeconomic History Marital status: Spouse [...] file Gets together: Not on file Attends protestant service: Not on file Active member of [...] Social History Narrative Lives at home with Sikhism Preference: Gnosticist Family History Problem Relation Age [...] Review of Systems Constitutional: Positive for fatigue. Negative for activity change, appetite change, chills, diaphoresis and fever. HENT: Negative for congestion, rhinorrhea and sore throat. Respiratory: Negative for cough, shortness of breath, wheezing and stridor. Gastrointestinal: Positive for diarrhea, nausea and vomiting. Negative for abdominal distention, abdominal pain, anal bleeding, blood in stool, constipation and rectal pain. Genitourinary: Negative for dysuria, hematuria, flank pain, decreased urine volume, difficulty urinating and pelvic pain. Musculoskeletal: Negative for arthralgias and myalgias. Skin: Negative for rash. Neurological: Negative for dizziness, weakness, light-headedness and headaches. All other systems reviewed and are negative. Vital Signs BP (!) 136/95 (BP Location: Left arm, Patient Position: Sitting, BP CUFF SIZE: Adult Large) | Pulse81 | Temp 36.6 C (97.8 F) (Oral) | Resp 18 | Ht 5' (1.524 m) | Wt 244 lb (110.7 kg) | SpO2 98% | BMI 47.65 kg/m Physical Exam Constitutional: She is oriented to person, place, and time. She appears well- developed and well-nourished. HENT: Head: Normocephalic and atraumatic. Right Ear: Tympanic membrane, external ear and ear canal normal. Left Ear: Tympanic membrane, external ear and ear canal normal. Nose: Nose normal. Mouth/Throat: Uvula is midline, oropharynx is clear and moist and mucous membranes are normal. Tonsils are 1+ on the right. Tonsils are 1+ on the left. Eyes: Conjunctivae are normal. Neck: Normal range of motion. Neck supple. Cardiovascular: Normal rate, regular rhythm and normal heart sounds. Exam reveals no gallop and no friction rub. No murmur heard. Pulmonary/Chest: Effort normal and breath sounds normal. No respiratory distress. She has no wheezes. She has no rales. Abdominal: Soft. Normal appearance and bowel sounds are normal. She exhibits no distension. There isno hepatosplenomegaly. There is no tenderness. There is no rigidity, no rebound, no guarding, no CVAtenderness, no tenderness at McBurney's point and negative Stearns's sign. Musculoskeletal: Normal range of motion. Neurological: She is alert and oriented to person, place, and time. Skin: Skin is warm and dry. Psychiatric: She has a normal mood and affect. Her behavior is normal. Nursing note and vitals reviewed. Assessment/Plan Yanci Man is a 45 year old female presents with concern for diarrhea and vomiting. 1. Diarrhea, unspecified type - continue promethazine as needed. - keep hydrated - Follow up with PCP, urgent care or ER in 2-3 days or sooner if symptoms do now improve or worsens.Patient/parent verbalized understanding and agreed with plan of care. 2. Suspected Covid-19 Virus Infection - COVID-19 (PCR MOLECULAR TESTING); Future - COVID-19 (PCR MOLECULAR TESTING) - Quarantine until your COVID results are back Criteria met - Covid testing - pending. This test can take 2-3 days to be resulted. While the test is pending...Please socially isolate your self - do not go out to stores or out in public. We will contact you once we have the results. If you are negative - continue with symptomatic treatment. (see below) Patients who have positive results will be contacted by the health department to enforce quarantine measures and for additional community contact tracing. The Infection Control Department will also undertake evaluation of exposures in our healthcare facility. If symptoms worsen - please call your Primary Care Doctor - do not go into the clinic. Call first. Educated on the following at home care: - Discussed likely viral diagnosis and treatment plan with pt. - pt advised on frequent effective handwashing - pt advised to increase fluid intake , stay hydrated and get plenty of rest. - advised to have the pt take OTC to treat symptoms. - Pt advised to administer Tylenol as per label recommendation as needed for pain or fever - Cover mouth when coughing, wear mask - Stay in your own bedroom and use a separate bathroom - Keep at least 6 feet from you and others - Avoid sharing personal household items, dishes, glasses, cups, towels -Clean high traffic/touch areas daily. These include but not limited to: doorknobs, refrigerator/cabinet handles, phones, keyboards, tablets, light switches. - AVS and Written/handout materials appropriate to problem and teaching provided. - advised to go to the nearest Emergency Department sooner for any new, worsening, persistent, or concerning symptoms - Patient verbalized understanding of all instructions - Follow-up with PCP as needed, if no improvement EDUCATION: Handouts given: Patient educated on plan of care for visit, swabbing technique,risks and benefits of test and lengthof time to receive results. Verbal consent obtained to perform test. CDC Fact Sheet for patients nCoV Diagnostic Panel dated 02/13/2020 provided. "What to do if you are sick with COVID-19" CDC information guide reviewed with the patient and handout given to patient Education given to self quarantine until results are back. Will notify patient with results. Patient states understanding and all questions answered. Plan of care, goals and medications discussed with patient. Patient voices understanding. Barriers to care: none Ability to manage care: good FOLLOW UP: Pt advised to call 911 or go to the nearest Emergency Department sooner for any worsening, persistent, or concerning symptoms ER precautions given Plan of care, desired health behaviors, goals, and medication discussed with patient. Education resources provided and reviewed with AVS. Patient/guardian/family verbalized understanding & agrees to plan of care. If applicable, the [place] [employer] database was accessed to review any controlled substance prescription claims data. The [employer] prescription claims data in [employer] was reviewed to assess patient compliance with the medication treatment plan. Urgent Care precautions and follow up : 1. Return to clinic if your symptoms should worsen or fail to improve within 72 hours. 2. The care provided in the urgent care was for acute problems only. 3. You should follow up with your primary care provider within 72 hours. 4. Make sure you are staying adequately hydrated. MAY FOLLOW-UP WITH A PROVIDER OF YOUR CHOICE, SUCH : 1. A PHYSICIAN OF YOUR CHOICE OR, IF YOU WISH TO FOLLOW-UP WITHIN THE [facility], MAY TRY THESE OPTIONS (CLINIC APPOINTMENTS AVAILABLE ON [id number] BASIS): 1. SCHEDULE AN APPOINTMENT ONLINE AT WWW[facility] 2. OR CALL THE [facility] ACCESS CENTER AT OR 3. OR CALL YOUR [facility] PHYSICIAN'S OFFICE DIRECTLY IF YOU ARE ALREADY AN ESTABLISHED [facility] PATIENT. After hours care nurse access center available by calling [phone] 24 hours 7 days per week. Maureen CRAWLEY [facility] documented in this encounter Plan of Treatment Date Type Specialty Care Team Description 06/22/2020 Office Visit Psychiatry Cortez Contreras MD [address] [place] [phone] Lino Koch MD [address] [place] [address]. [place] [phone] 06/23/2020 Office Visit Pulmonary Disease Nino Bennett, [facility] [place] [phone] 07/06/2020 Office Visit Neurology Anum Connor A NP [address] [place] [address] [phone] 10/20/2020 Office Visit Cardiology Justo Bolton MD [address] [place] [address] [place] [address] [phone] Name Type Priority Associated Diagnoses Date/Ti me COVID-19 (PCR MOLECULAR LAB Routine Suspected Covid-1 9 Virus 06/20/2020 1:48 PM CDT TESTING) Infection Name Type Priority Associated Diagnoses Order S blanco COVID-19 (PCR MOLECULAR LAB Routine Suspected Covid-1 9 Virus Expected: 06/20/2020, TESTING) Infection Expires: 2020 Health Maintenance Due Date Last Done Comments [...] filedocumented in this encounter Visit Diagnoses Diagnosis Diarrhea, unspecified type - Primary Suspected Covid-19 Virus Infection documented in this encounter Additional Health Concerns Infection Onset Date Last Indicated Resolved Time COVID-19 Rule Out 06/20/2020 06/20/2020 documented as of this encounter Insurance Payer Benefit Plan Subscriber ID Effective Phone Address Typ e / Group Dates [employer]ET[employer] - A[employer] [id number] 2019-[address] dicare Adv [place]ED [place]ARE [place] [id number] [place] [address] documented as of this encounter
--- OUTSIDE RECORDS SUMMARY | 2020-07-21 07:24 | XMS REPORT | Summary of Care ---
:1975 Author Organization [facility] Address [address] [place] [address] Care Team Providers Name Role Phone Kaye Gupta MD Primary Care Provider Reason for Referral (Routine) Status Reason Specialty Diagnoses / Referred By Referred To Procedures Contact Contact New Request Diagnoses Low serum cortisol level Landy Bates, Procedures COSYNTROPIN STIMULATION TEST [address] [place] [address] [phone] Reason for Visit Reason Comments NURSE VISIT ACTH Stimulation Test Encounter Details Date Type Department Care Team Description 06/13/2020 Nurse Visit [facility] Lanyd Bates MD [address] [place] [address] Low serum cortisol Endocrinology, Clear Nurse, Bls Cbc Endo level (Primary Dx) [address], [address] [place] [address] Allergies Active Allergy Reactions Severity [...] as of this encounter (statuses as of 06/13/2020) Medications Medication Sig Dispensed Refills Start Date [...] 2 Coronary artery (two) days. disease involving [place] coronary artery of [place] heart without angina pectoris, Essential hypertension, Dyslipidemia, [...] 27 mg by 0 Active 27 mg SANTO DOMINGO MAGNESIUM mouth 3 (three) (MAG-G) tablet times [...] tabletIndications: mouth daily. 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 disease involving [place] coronary artery of [place] heart with angina pectoris TOPIRAMATE 50 mg [...] Intractable acute post-traumatic headache isosorbide mononitrate 120 Take 1 tablet by mouth 90 tablet 0 05/15/2020 Active mg 24 hr tabletIndications: every morning. Morbid obesity with body mass index of 40.0-49.9, Coronary artery disease involving autologous artery coronary bypass graft without angina pectoris nystatin 100,000 unit/gram Apply to area(s) 2 30 g 1 Active ointmentIndications: Yeast (two) times daily. infection RANOLAZINE 1,000 mg tablet TAKE 1 TABLET BY MOUTH 180 tablet 1 05/26/2020 Active TWICE DAILY Hospital, Clinic, or Other Ordered Dose Route Frequency Start Date End Date Status Facility Administered Medication cosyntropin (CORTROSYN) 250 mcg IM ONCE 06/13/202006/13 Ended injection 250 mcgIndications: Low serum cortisol level documented as of this encounter (statuses as of 06/13/2020) Active Problems Problem Noted Date Adnexal mass [...] as of this encounter (statuses as of 06/13/2020) Resolved Problems Problem Noted Date Resolved Date Nicotine use disorder 02/08/2019 04/20/2019 Overview: vaping Postprandial vomiting 01/04/2017 01/19/2018 documented as of this encounter (statuses as of 06/13/2020) Immunizations Name Administration Dates Next Due Influenza [...] been in contact with No / Unsure 06/13/2020 7:55 AM CDT someone who was confirmed or suspected to have Coronavirus / COVID-19? documented as of this encounter Last Filed Vital Signs Vital Sign Reading Time Taken Comments Blood Pressure 127/91 06/13/2020 8:09 AM CDT Pulse 80 06/13/2020 8:09 AM CDT Temperature 36.7 C (98.1 F) 06/13/2020 8:09 AM CDT Respiratory Rate 18 06/13/2020 8:09 AM CDT Oxygen Saturation 97% 06/13/2020 8:09 AM CDT Inhaled Oxygen Concentration - - Weight 110.7 kg (244 lb) 06/13/2020 8:09 AM CDT Height 152.4 cm (5') 06/13/2020 8:09 AM CDT Body Mass Index 47.65 06/13/2020 8:09 AM CDT documented in this encounter Progress Notes Nataliia Owen, VILLA - 06/13/2020 8:30 AM CDTPt presents to the clinic for a ACTH Stimulation Test. Patient identified by name and . I have explained test to patient and consent was given. Vital signs are stable and patient is in no apparent distress. Pt states she ate nothing. Pt denies intake of caffeine and steroids in 24 hours. At 0835 baseline cortisol and plasma ACTH blood drawn from right AC; venipuncture x 1, patient tolerated well. 2x2 applied at site. Sample labeled and sent to [facility] lab for processing. At 0836 Cortrosyn 250mcg given IM to the left Deltoid, patient tolerated well. [facility] [id number] Lot # [id number] Expiration 05/2021 At 0904 30 min Cortisol drawn from right AC; venipuncture x 1; patient tolerated well. 2x2 applied at site. Sample labeled and sent to [facility] lab for processing. At 0938 60 min Cortisol drawn from right AC; venipuncture x 1; patient tolerated well. 2x2 applied at site. Sample labeled and sent to [facility] lab for processing. Pt left ambulating at 0940. documented in this encounter Plan of Treatment Date Type Specialty Care Team Description 06/15/2020 Office Visit Pulmonary Disease Nino Bennett, DO [facility] [place] [phone] 06/16/2020 Office Visit Cardiology Justo Bolton MD [address] [place] [phone] 06/22/2020 Office Visit Psychiatry Janusz Koch MD [address] [place] [address]. [place] [address] [phone] 07/06/2020 Office Visit Neurology Anum Connor A NP [address] [place] [address] [phone] Name Type Priority Associated Diagnoses Date/Ti me CORTISOL STIMULATION 0 LAB Routine Low serum cortisol level 06/13/2020 8:36 AM MIN CDT CORTISOL STIMULATION 30 LAB Routine Low serum cortiso l level 06/13/2020 9:06 AM MIN CDT CORTISOL STIMULATION 60 LAB Routine Low serum cortiso l level 06/13/2020 9:36 AM MIN CDT Name Type Priority Associated Diagnoses Order S chedule COSYNTROPIN STIMULATION PROCEDURES Routine Low serum cortiso l Ordered: 06/13/2020 TEST level CORTISOL STIMULATION 0 LAB Routine Low serum cortisol Expected: MIN level 06/13/2020, Exp ires: 06/13/2021 CORTISOL STIMULATION 30 LAB Routine Low serum cortiso l Expected: MIN level 06/13/2020, Exp ires: 06/13/2021 CORTISOL STIMULATION 60 LAB Routine Low serum cortiso l Expected: MIN level 06/13/2020, Exp ires: 06/13/2021 Health Maintenance Due Date Last Done Comments [...] Problems Progress 5 lb weight General Yes Bastian, loss by next Marlee Restrepo MD visit documented as of this encounter Results Not on filedocumented in this encounter Visit Diagnoses Diagnosis Low serum cortisol level - Primary Glucocorticoid deficiency documented in this encounter Administered Medications Medication Order MAR Action Action Date Dose Rate Site cosyntropin (CORTROSYN) Given 06/13/2020 8:36 AM 250 mcg Left Deltoid-IM injection 250 mcg CDT 250 mcg, Intramuscular, ONCE, 1 dose, Tu06/13/20 at 0815, Routine documented in this encounter Insurance Payer Benefit Plan Subscriber ID Effective Phone Address Typ e / Group Dates AETNA - AETNA [id number] 2019-Prese [address] Me dicare Adv MANAGED MEDICARE ADV nt [id number] [place] [address] documented as of this encounter
--- OUTSIDE RECORDS SUMMARY | 2020-07-21 07:24 | XMS REPORT | Summary of Care ---
:1975 [address] 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 disease involving [place] coronary artery of [place] heart without angina pectoris, Essential hypertension, Dyslipidemia, [...] 27 mg by 0 Active 27 mg MAKAH MAGNESIUM mouth 3 (three) (MAG-G) tablet times [...] mouth daily. 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 disease involving [place] coronary artery of [place] heart with angina pectoris TOPIRAMATE 50 mg [...] Chronic inflammation of colon 06/01/2020 Intertrigo 06/01/2020 [place] disease 05/22/2020 Fatigue, unspecified type 05/22/2020 Low [...] stenosis Atherosclerosis of artery Bulging lumbar disc NC (mitral incompetence) Polycystic ovarian disease GERD (gastroesophageal [...] 06/15/2020 Office Visit Pulmonary Disease Nino Bennett, [facility] [place] [phone] 06/16/2020 Office Visit Cardiology Justo Bolton MD [address] [place] [phone] 06/22/2020 Office Visit Psychiatry Janusz Koch MD [address] [place] [address]. [place], [place] [phone] 07/06/2020 Office Visit Neurology Anum Connor A NP [address] [place] [address] [phone] Name Type Priority Associated Diagnoses Date/Ti me CORTISOL STIMULATION 0 LAB Routine Low serum cortisol level 06/13/2020 8:36 AM MIN CDT CORTISOL STIMULATION 30 LAB Routine Low serum cortiso l level 06/13/2020 9:06 AM MIN CDT CORTISOL STIMULATION 60 LAB Routine Low serum cortiso l level 06/13/2020 9:36 AM MIN CDT Health Maintenance Due Date Last Done [...] Visit Diagnoses Diagnosis Low serum cortisol level Glucocorticoid deficiency documented in this encounter Insurance Payer Benefit Plan Subscriber ID Effective Phone Address Typ e / Group Dates AETNA - AETNA [id number] 2019-Jose Gutierrez BOX Me dicare Adv MANAGED MEDICARE ADV nt [id number] [place] [address] documented as of this encounter
--- OUTSIDE RECORDS SUMMARY | 2020-07-21 07:24 | XMS REPORT | Summary of Care ---
:1975 Author Organization [facility] Address [address] [place] [address] Care Team Providers Name Role Phone Kaye Gupta MD Primary Care Provider Encounter Details Date Type Department Care Team Description 05/12/2020 Patient Secure Msg [facility] Magnetic Doctor Todd perry, [facility] [place] [address] [place] [address] [place] [phone] Allergies Active Allergy Reactions Severity Noted Date [...] as of this encounter (statuses as of 06/17/2020) Medications Medication Sig Dispensed Refills Start Date [...] 2 Coronary artery (two) days. disease involving [place] coronary artery of [place] heart without angina pectoris, Essential hypertension, Dyslipidemia, [...] 27 mg by 0 Active 27 mg BURNS PAI[place] MAGNESIUM mouth 3 (three) (MAG-G) tablet times [...] tabletIndications: mouth daily. 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 disease involving [place] coronary artery of [place] heart with angina pectoris TOPIRAMATE 50 mg [...] as of this encounter (statuses as of 06/17/2020) Active Problems Problem Noted Date Adnexal mass 06/01/2020 Overview: left Left nephrolithiasis 06/01/2020 Chronic inflammation of colon 06/01/2020 Intertrigo 06/01/2020 [place] disease 05/22/2020 Fatigue, unspecified type 05/22/2020 Low [...] stenosis Atherosclerosis of artery Bulging lumbar disc ID (mitral incompetence) Polycystic ovarian disease GERD (gastroesophageal reflux disease) Anxiety Agoraphobia Panic disorder HTN (hypertension) Gastric polyp Asthma Overview: As a child Allergic rhinitis documented as of this encounter (statuses as of 06/17/2020) Resolved Problems Problem Noted Date Resolved Date Nicotine use disorder 02/08/2019 04/20/2019 Overview: vaping Postprandial vomiting 01/04/2017 01/19/2018 documented as of this encounter (statuses as of 06/17/2020) Immunizations Name Administration Dates Next Due Influenza [...] Treatment Date Type Specialty Care Team Description 06/19/2020 Telemedicine Visit Cardiology Zay Bolton MD [address] [place] [address] [place] [phone] 06/22/2020 Office Visit Psychiatry Cortez Contreras MD [address] [place] [address] Lino Koch MD [address] [place] [address]. [place] [phone] 06/23/2020 Office Visit Pulmonary Disease Nino Bennett, DO [address] [place] [phone] 07/06/2020 Office Visit Neurology Anum Connor A NP [address] [place] [address] [place], [place] [address] [phone] Health Maintenance Due Date Last Done Comments [...] e / Group Dates AETNA - AETNA [id number] 2019-Jose TURNER Me dicare Adv MANAGED MEDICARE ADV nt [id number] [place] [address] documented as of this encounter
--- OUTSIDE RECORDS SUMMARY | 2020-07-21 07:25 | XMS REPORT | Summary of Care ---
:1975 Author Organization [facility] Address [address] [place] [address] Care Team Providers Name Role Phone Kaye Gupta MD Primary Care Provider Reason for Visit Reason Comments Follow-up Asthma Encounter Details Date Type Department Care Team Description 06/23/2020 Office Visit [facility] ADC Nino Bennett DO Moderate persistent asthma without compl ication (Primary Dx); Pulmonary Clinic [address] [facility] Morbid obesity; [address] [place] [address] ANUJ Pierre JOSE (obstructive sleep apnea) [address] [place] [phone] Allergies Active Allergy Reactions Severity Noted Date [...] as of this encounter (statuses as of 06/23/2020) Medications Medication Sig Dispensed Refills Start Date [...] 2 Coronary artery (two) days. disease involving circle coronary artery of circle heart without angina pectoris, Essential hypertension, Dyslipidemia, [...] 27 mg by 0 Active 27 mg CAMPO MAGNESIUM mouth 3 (three) (MAG-G) tablet times daily. LEVALBUTEROL 0.63 USE 1 VIAL BY 75 mL 5 12/29/2019 Active mg/3 mL nebulizer NEBULATION THREE solutionIndications: TIMES DAILY Acute bacterial NEEDED FOR sinusitis, Asthmatic WHEEZING, bronchitis with acute SHORTNESS OF exacerbation, BREATH OR CHEST unspecified asthma TIGHTNESS severity, unspecified whether persistent losartan 25 mg Take 1 tablet by 90 tablet 3 01/19/2020 Active tabletIndications: mouth daily. Coronary artery disease involving circle coronary artery of circle heart with angina pectoris, Essential hypertension traZODone [...] Coronary artery for Chest pain. disease involving circle coronary artery of circle heart with angina pectoris TOPIRAMATE 50 mg [...] AM proMETHazine 25 mg Take 1 tablet 90 tablet 6 05/09/2020 Active tabletIndications: by mouth every Migraine without aura 4 (four) hours and without status as needed (N/V migrainosus, not or migraine intractable, headache). Intractable acute post-traumatic headache isosorbide mononitrate Take 1 tablet 90 tablet 0 05/15/2020 Active 120 mg 24 hr by mouth every tabletIndications: morning. Morbid obesity with body mass index of 40.0-49.9, Coronary artery disease involving autologous artery coronary bypass graft without angina pectoris nystatin 100,000 Apply to 30 g 1 05/18/2020 Ac tive unit/gram area(s) 2 (two) ointmentIndications: times daily. Yeast infection RANOLAZINE 1,000 mg TAKE 1 TABLET 180 tablet 1 05/26/2020 Active tablet BY MOUTH TWICE DAILY Fluticasone-Salmeterol Inhale 1 Puff 60 Each 06/23/2020 Active (WIXELA INHUB) 500-50 every 12 mcg/dose inhalation (twelve) hours. diskIndications: Moderate persistent asthma without complication, Morbid obesity, JOSE (obstructive sleep apnea) WIXELA INHUB 500-50 INHALE 1 PUFF 60 Each 12/27/201906/23 Discontinued mcg/dose inhalation BY MOUTH (Reorder) disk 12 HOURS documented as of this encounter (statuses as of 06/23/2020) Active Problems Problem Noted Date Adnexal mass 06/01/2020 Overview: left Left nephrolithiasis 06/01/2020 Chronic inflammation of colon 06/01/2020 Intertrigo 06/01/2020 [place] disease 05/22/2020 Fatigue, unspecified type 05/22/2020 Low [...] as of this encounter (statuses as of 06/23/2020) Resolved Problems Problem Noted Date Resolved Date Nicotine use disorder 02/08/2019 04/20/2019 Overview: vaping Postprandial vomiting 01/04/2017 01/19/2018 documented as of this encounter (statuses as of 06/23/2020) Immunizations Name Administration Dates Next Due Influenza [...] been in contact with No / Unsure 06/23/2020 3:07 PM CDT someone who was confirmed or suspected to have Coronavirus / COVID-19? documented as of this encounter Last Filed Vital Signs Vital Sign Reading Time Taken Comments Blood Pressure 117/77 06/23/2020 3:12 PM CDT Pulse 89 06/23/2020 3:12 PM CDT Temperature - - Respiratory Rate 19 06/23/2020 3:12 PM CDT Oxygen Saturation 98% 06/23/2020 3:12 PM CDT Inhaled Oxygen Concentration - - Weight 114.1 kg (251 lb 8 oz) 06/23/2020 3:12 PM CDT Height 152.4 cm (5') 06/23/2020 3:12 PM CDT Body Mass Index 49.12 06/23/2020 3:12 PM CDT documented in this encounter Progress Notes Nino Bennett DO - 06/23/2020 3:00 PM CDT [facility] Chief Complaint: Follow up of asthma History of Present Illness: Yanci Man is a 45 year old female here for follow up of asthma. Overall, doing well about the same as las time. Using Advair twice a day, and albuterol once a day. Rarely have night time symptoms. Past Medical History: has a past medical history of Allergic rhinitis, Amenorrhea (02/08/2019), Anemia, Asthma, CAD (coronary artery disease), Depression, Endometriosis, GERD (gastroesophageal reflux disease), HTN (hypertension), Hyperlipidemia, Infection of skin due to methicillin resistant Staphylococcus aureus (MRSA) (01/04/2018), Left nephrolithiasis (06/01/2020), Leiomyoma of uterus, DE (mitral incompetence) (2014), JOSE (obstructive sleep apnea), Panic disorder, Pap smear abnormality of cervix (1999), PCOS (polycystic ovarian syndrome), POTS (postural orthostatic tachycardia syndrome) (12/04/2017), Prediabetes (01/23/2018), Prinzmetal angina, Seizures, Spinal stenosis, and Urinary incontinence. She also has no past medical history of Autoimmune disorder, Breast disorder, Cancer, Clotting disorder, Diabetes mellitus, Female infertility, Genital herpes, Genital warts, Heart murmur, Human immunodeficiency virus (HIV) disease, Liver disease, Osteoporosis, PID (pelvic inflammatory disease), Rh incompatibility, Sickle cell anemia, Substance abuse, Superficial thrombophlebitis, Thyroid disease, Transfusion history, Trauma, or Tuberculosis. Past Surgical History: has a past surgical history that includes drain ovarian abscess,abd apprch; hernia repair (Right, 2004); [id number] - [place] PATIENT HAS A CORONARY ARTERY STENT (2014); tendon repair (Right); tear duct system surg unlisted; colonoscopy (10/25/2019); esophagogastroduodenoscopy; colposcopy ,cervix w/adj vag,w/loop bx; conization cervix,loop electrd (1999); laparoscopic adjustable gastric banding (01/2000); abdominal scar revision (1997); section ([id number]); dilation and curettage (shx) (1997); laparoscopic gastric band removal (2016); open carpal tunnel release (Left, 04/06/2018); trigger finger release (Right, 02/26/2019); endoscopic carpal tunnel release (Right, 02/26/2019); anddequervain's contracture release (Right, 02/26/2019). Family History: family history includes Arthritis in her maternal grandmother and mother; Asthma in her maternal grandmother and mother; Breast Cancer in her maternal aunt and maternal grandmother; Cancer in her maternal aunt, maternal grandmother, mother, and paternal grandfather; Cataracts in her maternal grandfather and maternal grandmother; Colon Cancer in her mother; Coronary Heart Disease in her father and paternal grandfather; Depression in her mother; Diabetes in her father and paternal grandmother; Heart in her father; Hypertension in her mother; Kidney disease in her mother; Miscarriages / Stillbirths in her mother; Ovarian Cancer in her maternal aunt; Stroke in her mother and paternal grandfather; Thyroid in her mother; Uterine Cancer in her mother. Social History: reports that she quit smoking about 3 years ago. Her smoking use included cigarettes. She has a 7.50 pack-year smoking history. She has never used smokeless tobacco. She reports that she does not drink alcohol or use drugs. Review of Systems: Review of Systems Constitutional: Negative. HENT: Negative. Eyes: Negative. Respiratory: Positive for cough and shortness of breath. Cardiovascular: Negative. Gastrointestinal: Negative. Genitourinary: Negative. Musculoskeletal: Negative. Skin: Negative. Neurological: Negative. Psychiatric/Behavioral: Negative. Endocrine: Endocrine negative Objective: BP 117/77 (BP Location: Left arm) | Pulse 89 | Resp 19 | Ht 5' (1.524 m) | Wt 251 lb 8 oz (114.1kg) | SpO2 98% | BMI 49.12 kg/m Physical Exam Constitutional: She is oriented to person, place, and time. She appears well- developed and well-nourished. HENT: Head: Normocephalic and atraumatic. Eyes: Conjunctivae and EOM are normal. Neck: Normal range of motion. Neck supple. Cardiovascular: Normal rate and regular rhythm. Pulmonary/Chest: Effort normal and breath sounds normal. Abdominal: Soft. Bowel sounds are normal. Musculoskeletal: Normal range of motion. Neurological: She is alert and oriented to person, place, and time. Skin: Skin is warm and dry. Psychiatric: She has a normal mood and affect. Her behavior is normal. Judgment and thought content normal. Labs/Studies: (Copied from prior encounter and reviewed) Chest x-ray no evidence of hilar lymphadenopathy PFT - moderate obstructive ventilatory defect with significant bronchodilator response. Concurrent moderate restriction with normal to high IC/ERV ratio and high normal DL/VA CPAP at 9 cm H20 Assessment: ICD-10-CM ICD-9-CM 1. Moderate persistent asthma without complication J45.40 493.90 2. Morbid obesity E66.01 278.01 3. JOSE (obstructive sleep apnea) G47.33 327.23 Plan: 1. Continue with Albuterol and Advair 2. Continue with CPAP therapy 3. Weight loss 4. Follow up 6 months documented in this encounter Plan of Treatment Date Type Specialty Care Team Description 06/26/2020 Office Visit Endocrinology Diabetes & Landy Bates MD [facility] [address] [facility] [address] [place], [place] [address] [phone] 06/30/2020 Office Visit Psychiatry Janusz Koch MD [address] [place] [address]. [place] [phone] 07/05/2020 Office Visit Urology Nanda Lutz, PORTRAIT PHOTOGRAPHER [address] [facility] [address] [place], [place] [address] 07/06/2020 Office Visit Neurology Anum Connor A NP [address] [place] [phone] 10/20/2020 Office Visit Cardiology Justo Bolton MD [address] [facility] [address] [place], [place] [phone] Health Maintenance Due Date Last Done Comments [...] filedocumented in this encounter Visit Diagnoses Diagnosis Moderate persistent asthma without compl ication - Primary Unspecified asthma Morbid obesity JOSE (obstructive sleep apnea) Obstructive sleep apnea (adult) (pediatr ic) documented in this encounter Insurance Payer Benefit Plan Subscriber ID Effective Phone Address Typ e / Group Dates AETNA - AETNA [id number] 2019-Jose ahn Adv MANAGED MEDICARE ADV nt [id number] [place] [address] documented as of this encounter"
--- OUTSIDE RECORDS SUMMARY | 2020-07-21 07:25 | XMS REPORT | Summary of Care ---
:1975 Author Organization [facility] Address [address] [place] [address] Care Team Providers Name Role Phone Kaye Gupta MD Primary Care Provider Reason for Visit Reason Comments Follow-up Asthma Encounter Details Date Type Department Care Team Description 06/23/2020 Office Visit [facility] ADC Nino Bennett DO Moderate persistent asthma without compl ication (Primary Dx); Pulmonary Clinic [address] [facility] Morbid obesity; [address] [place] [address] ANUJ Pierre JOSE (obstructive sleep apnea) [address] [place] [phone] Allergies Active Allergy Reactions Severity Noted Date [...] 2 Coronary artery (two) days. disease involving kaguy[place] coronary artery of kaguy[place] heart without angina pectoris, Essential hypertension, Dyslipidemia, [...] 27 mg by 0 Active 27 mg WRANGELL MAGNESIUM mouth 3 (three) (MAG-G) tablet times [...] tabletIndications: mouth daily. Coronary artery disease involving kaguy[place] coronary artery of kaguy[place] heart with angina pectoris, Essential hypertension traZODone [...] Coronary artery for Chest pain. 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 Fatigue, unspecified type 05/22/2020 Low [...] stenosis Atherosclerosis of artery Bulging lumbar disc [place] (mitral incompetence) Polycystic ovarian disease GERD (gastroesophageal [...] Bennett DO - 06/23/2020 3:00 PM CDT [facility] Interventional Pulmonology Clinic Chief Complaint: Follow up [...] (01/04/2018), Left nephrolithiasis (06/01/2020), Leiomyoma of uterus, [place] (mitral incompetence) (2014), JOSE (obstructive sleep apnea), [...] apprch; hernia repair (Right, 2004); [id number] - [place] PATIENT HAS A CORONARY ARTERY STENT (2014); tendon repair (Right); tear duct system surg unlisted; colonoscopy (10/25/2019); esophagogastroduodenoscopy; colposcopy ,cervix w/adj vag,w/loop bx; conization cervix,loop electrd (1999); laparoscopic adjustable gastric banding (01/2000); abdominal scar revision (1997); section ([id number]); dilation and curettage (shx) (1997); laparoscopic gastric [...] Visit Endocrinology Diabetes & Landy Bates MD [facility] [address] [facility] 400 [place], [place] [address] [phone] 06/30/2020 Office Visit Psychiatry Janusz Koch MD [address] [place] [address]. [place] [address] 07/05/2020 Office Visit Urology Nanda Lutz, [employer]OP[employer] [address] [facility] [address] [place], [place] [address] 07/06/2020 Office Visit Neurology Anum Connor A NP [address] [place] [phone] 10/20/2020 Office Visit Cardiology Justo Bolton MD [address] [facility] [facility] 106 [place], [place] [address] Health Maintenance Due Date [...] e / Group Dates AETNA - AETNA [id number] 2019-Jose ahn Adv MANAGED MEDICARE ADV nt [id number] [place] [address] documented as of this encounter"
--- OUTSIDE RECORDS SUMMARY | 2020-07-21 07:26 | XMS REPORT | Summary of Care ---
:1975 Author Organization [facility] [employer] Address [address] [place] [address] Care Team Providers Name Role Phone Kaye Gupta MD Primary Care Provider Reason for Visit Reason Comments Follow-up Coronary Disease (Routine) Status Reason Specialty Diagnoses / Referred By Referred To Procedures Contact Contact Authorized Cardiology Diagnoses POTS (postural orthostatic tachycardia syndrome) Polypharmacy Candy Wondiful Procedures CONSULT/REFERRAL CARDIOLOGY MD Kaye [address] [place] [address] [facility] [place] [address] Encounter Details Date Type Department Care Team Description 06/19/2020 Telemedicine Visit [facility] Justo Bolton POTS (p ostural orthostatic tachycardia syndrome) (Primary Dx); Cardiology- MD Damien Orthostatic hypertension; [address] Essential hypertension; [address] [place] [address] 106 Chronic diastolic heart failure; Drive, [address] [place], [place] Dyslipidemia; [place] [address] ORTIZ (dyspnea on exertion); [phone] Coronary artery disease involving tuolumne coronary artery of tuolumne heart without angina pectoris [phone] Allergies Active Allergy Reactions Severity Noted Date [...] as of this encounter (statuses as of 06/25/2020) Medications Medication Sig Dispensed Refills Start Date [...] 2 Coronary artery (two) days. disease involving tu[place]um[place] coronary artery of tuolumne heart without angina pectoris, Essential hypertension, Dyslipidemia, [...] 27 mg by 0 Active 27 mg [place] MAGNESIUM mouth 3 (three) (MAG-G) tablet times [...] tabletIndications: mouth daily. Coronary artery disease involving [place] coronary artery of tu[place]umne heart with angina pectoris, Essential hypertension traZODone [...] Coronary artery for Chest pain. disease involving tu[place] coronary artery of tuolumne heart with angina pectoris TOPIRAMATE 50 mg [...] 05/26/2020 Active tablet BY MOUTH TWICE DAILY WIXELA INHUB 500-50 INHALE 1 PUFF 60 Each 12/27/201906/23 Discontinued mcg/dose inhalation BY MOUTH (Reorder) disk 12 HOURS metoprolol succinate XL Take 1 tablet 30 tablet 6 02/08/2020 0 06/19 Discontinued 25 mg 24 hr by mouth tabletIndications: (two) times Essential hypertension daily. CARTIA XT 240 mg 24 hr TAKE 1 CAPSULE 90 capsule 1 05/05/202006/19 Discontinued capsule BY MOUTH MORNING documented as of this encounter (statuses as of 06/25/2020) Active Problems Problem Noted Date Adnexal mass 06/01/2020 Overview: left Left nephrolithiasis 06/01/2020 Chronic inflammation of colon 06/01/2020 Intertrigo 06/01/2020 Lowber disease 05/22/2020 Fatigue, unspecified type 05/22/2020 Low [...] as of this encounter (statuses as of 06/25/2020) Resolved Problems Problem Noted Date Resolved Date Nicotine use disorder 02/08/2019 04/20/2019 Overview: vaping Postprandial vomiting 01/04/2017 01/19/2018 documented as of this encounter (statuses as of 06/25/2020) Immunizations Name Administration Dates Next Due Influenza [...] Signs Not on filedocumented in this encounter Progress Notes Justo Bolton MD - 06/19/2020 1:00 PM CDT [facility] Cardiology Consult Note Patient: Yanci Man Date of : 1975 Primary Care Physician: Marlee Gupta CHIEF COMPLAINT: Follow up CAD History of Present Illness: Miss Yanci Man is a 45-year-old female patient presented to the office for follow-up for CAD. History was obtained talking to the patient. Verbal consent obtained from Yanci Man for telehealth services provided below. Communication with patient was conducted via audio/video call. Location of Patient: Home Location of Provider: Clinic Since the last OV, feeling well on the whole. No new cardiac complaints noted. BP and HR stable. Sheis interested coming off meds. She has already stopped some of the meds by herself. ORTIZ NYHA class II noted but stable. No PND or orthopnea. No pedal edema. No exertional palpitations or palpitations at rest. No syncopal attacks. Diagnosed to have POTS and subsequently which was recommended conservative therapy. Following up with EP. Saw EP, had tilt table, noted to have Orthostatic HTN. Past cardiac history History of CAD in Aug 2015 . Presented with atypical chest pain. NM stress test was done in [facility] and had two stents in the same admission. Previous Cardiac Studies: IMAGING - I personally reviewed, pertinent results as below: ECG 09/30/2018 NSR with narrow QRS complexes. No sig STT changes. No sig changes compared to previous ECG. Echo 01/08/2017 Interpretation Summary The study was technically limited. There is no comparison study available. Left ventricular systolicfunction is normal. Ejection Fraction = 55-60%. Diastolic function is normal for age. The left ventricular wall motion is normal. Insufficient Tricuspid regurgitation jet to estimate RVSP. Cath 01/2017 INTERVENTION IMPRESSION: 1. Patent LAD and PDA stents 2. Severe spasms noted in pRCA, p-dLAD Echo 10/2018 Interpretation Summary The study was technically adequate. Compared to prior study, there is no significant change. Left ventricular systolic function is normal. Ejection Fraction = 55-60%. Diastolic function is normal. The left ventricular wall motion is normal. Echo 10/2019 Interpretation Summary A two-dimensional transthoracic echocardiogram with M-mode and Doppler was performed. The study was technically difficult. Grossly normal LVEF. Technically difficult study despite the use of contrast. Tilt table 12/2019 Supine: HR: 72 bpm BP: 120/90 mmHg Passive Tilt: HR: 81 bpm BP: 159/110 mmHg Chemical Tilt: HR: n/a bpm BP: n/a mmHg Impression: suspected Orthostatic Hypertension as potential cause of symptoms. Typically in orthostatic HTN, heart rate rises as well as BP in upright position; however, this patient is on 360mg of Diltiazem daily which may have blunted her heart rate response. PAST MEDICAL HISTORY Past Medical History: Diagnosis Date Allergic rhinitis Amenorrhea 02/08/2019 Anemia Asthma As a child CAD (coronary artery disease) Depression Endometriosis GERD (gastroesophageal reflux disease) HTN (hypertension) Hyperlipidemia Infection of skin due to methicillin resistant Staphylococcus aureus (MRSA) 01/04/2018 Left nephrolithiasis 06/01/2020 Leiomyoma of uterus [place] (mitral incompetence) 2014 JOSE (obstructive sleep apnea) Panic disorder Pap smear abnormality of cervix 1999 s/p LEEP PCOS (polycystic ovarian syndrome) POTS (postural orthostatic tachycardia syndrome) 12/04/2017 Prediabetes 01/23/2018 Prinzmetal angina Seizures Spinal stenosis Urinary incontinence stress incont only Past Surgical History: Procedure Laterality Date ABDOMINAL SCAR REVISION 1997 repair and tummy tuck SECTION [id number] COLONOSCOPY 10/25/2019 COLPOSCOPY,CERVIX W/ADJ VAG,W/LOOP BX CONIZATION [...] MD; Location: [facility] [place] PATIENT HAS A CORONARY ARTERY STENT 2015 x 3 TEAR DUCT SYSTEM SURG UNLISTED TENDON REPAIR Right ankle TRIGGER FINGER RELEASE Right 02/26/2019 Surgeon: Thomas Ware MD; Location: [facility] Jose M Family History Problem Relation Age of Onset [...] Psychiatry NoFHx Other - see comments NoFHx SOCIAL HISTORY Social History Socioeconomic History Marital status: Spouse [...] file Gets together: Not on file Attends latter-day service: Not on file Active member of [...] Social History Narrative Lives at home with Pentecostal Preference: Hinduism ALLERGIES Allergies Allergen Reactions Adhesive Tape-Silicones Hives Amitriptyline Other - See comments Made headaches worse Doxycycline Shortness of Breath Erythromycin Hives and Swelling Lyrica [Pregabalin] Other - See comments Seirzures Mushroom Unknown - See comments Allergy listed per nurses screen and pt's father - unable to confirm with pt, unknown reaction. MEDICATIONS Patient's Medications START taking these medications No medications on file CONTINUE taking these medications which have NOT CHANGED ALBUTEROL 1.25 MG/3 ML NEBULIZER SOLUTION Use 3 mL as directed every 6 (six) hours as needed forWheezing. ASPIRIN 81 MG CHEWABLE TABLET Take 1 tablet by mouth daily. ATORVASTATIN 80 MG TABLET Take 1 tablet by mouth every morning. BUMETANIDE 1 MG TABLET Take 1 tablet by mouth every 2 (two) days. BUSPIRONE 5 MG TABLET Take 4 tablets by mouth three times per day CARTIA XT 240 MG 24 HR CAPSULE TAKE 1 CAPSULE BY MOUTH EVERY MORNING CLOPIDOGREL 75 MG TABLET TAKE 1 TABLET BY MOUTH DAILY DICLOFENAC SODIUM 1 % GEL BLAINE 2 GRAMS EXT AA QID DILTIAZEM 120 MG 24 HR CAPSULE TK 1 C PO QPM GABAPENTIN 600 MG TABLET Take 600 mg by mouth 5 (five) times daily. HYDROCODONE-ACETAMINOPHEN 7.5-325 MG PER TABLET TK 1 T PO BID. ISOSORBIDE MONONITRATE 120 MG 24 HR TABLET Take 1 tablet by mouth every morning. LEVALBUTEROL 0.63 MG/3 ML NEBULIZER SOLUTION USE 1 VIAL BY NEBULATION THREE TIMES DAILY NEEDED FOR WHEEZING, SHORTNESS OF BREATH OR CHEST TIGHTNESS LOSARTAN 25 MG TABLET Take 1 tablet by mouth daily. MAGNESIUM GLUCONATE 27 MG DRY [place]REEK MAGNESIUM (MAG-G) TABLET Take 27 mg by mouth 3 (three) times daily. METOPROLOL SUCCINATE XL 25 MG 24 HR TABLET Take 1 tablet by mouth 2 (two) times daily. MONTELUKAST 10 MG TABLET TAKE 1 TABLET BY MOUTH EVERY EVENING NITROGLYCERIN (NITROSTAT) 0.[address] 1 tablet under the tongue every 5 (five) minutes as needed for Chest pain. NYSTATIN 100,000 UNIT/GRAM OINTMENT Apply to area(s) 2 (two) times daily. PANTOPRAZOLE 40 MG EC TABLET PRIMIDONE 50 MG TABLET TAKE 1 TABLET BY MOUTH TWICE DAILY PROMETHAZINE 25 MG TABLET Take 1 tablet by mouth every 4 (four) hours as needed (N/V or migraineheadache). RANOLAZINE 1,000 MG TABLET TAKE 1 TABLET BY MOUTH TWICE DAILY TIZANIDINE 4 MG TABLET TK 1 T PO TID TOPIRAMATE 50 MG TABLET TAKE 3 TABLETS BY MOUTH TWICE DAILY TRAZODONE 100 MG TABLET Take one to two tablets at night as needed for insomnia WIXELA INHUB 500-50 MCG/DOSE INHALATION DISK INHALE 1 PUFF BY MOUTH EVERY 12 HOURS START taking Modified Medications as Prescribed No medications on file STOP taking these medications No medications on file REVIEW OF SYSTEMS: Comprehensive 10-system review was conducted and were negative except for what's noted in the HPI. The following systems were reviewed: Constitutional, cardiovascular, respiratory, gastrointestinal, genitourinary, musculoskeletal, neurologic, psychiatric, endocrinological, and hematological. PHYSICAL EXAMINATION: There were no vitals filed for this visit. TELEHEALTH EXAM Full exam couldn't be done since it TELE VISIT. Constitutional: Alert and in no distress Resp: Breathing comfortably Neuro: answers questions appropriately LABS - Reviewed pertinent labs as below: CBC BMP PT/INR WBC (10*3/L) Date Value 12/30/2019 13.23 (H) NA (mmol/L) Date Value 12/30/2019 142 No results found for: PT PLT (10*3/L) Date Value 12/30/2019 224 K (mmol/L) Date Value 12/30/2019 3.6 INR (no units) Date Value 12/30/2019 1.1 HGB (g/dL) Date Value 12/30/2019 13.1 BUN (mg/dL) Date Value 12/30/2019 8 HCT (%) Date Value 12/30/2019 40.8 CREATININE (mg/dL) Date Value 12/30/2019 0.83 LIPID PROFILE GLUCOSE (mg/dL) Date Value 12/30/2019 98 CHOL (mg/dL) Date Value 10/30/2019 157 TSH LDL CHOL (mg/dL) Date Value 10/30/2019 66 TSH (mIU/L) Date Value 05/01/2020 2.49 CARDIAC ENZYMES HDL (mg/dL) Date Value 10/30/2019 38 (L) CK (U/L) Date Value 05/11/2020 45 TRIG (mg/dL) Date Value 10/30/2019 266 (H) LFTs No results found for: CKMB AST(SGOT) (U/L) Date Value 05/11/2020 20 TROPONIN I (ng/mL) Date Value 10/30/2019 0.002 ALT(SGPT) (U/L) Date Value 08/26/2019 40 ALTv (U/L) Date Value 05/11/2020 20 No results found for: BNP ASSESSMENT/PLAN 1. POTS (postural orthostatic tachycardia syndrome) 2. Orthostatic hypertension 3. Essential hypertension 4. Chronic diastolic heart failure 5. Dyslipidemia 6. ORTIZ (dyspnea on exertion) 7. Coronary artery disease involving tuolumne coronary artery of tuolumne heart without angina pectoris Clinically stable from cardiac stand point. No new cardiac complaints noted. Reviewed with that endothelial dysfunction is similar to coronary vasospasm and prinzmetal angina asthey have similar pathophysiology. CAD: Continue ASA + Plavix. No recurrent symptoms noted. POTS/Orthostatic HTN: Following EP Dr Marie HTN: Stable BP. Continue Losartan 25 mg daily (she was previously taken Losartan 25 AM and 50 PM)/ off Toprol XL 12.5 BiD. Reports BP at home < 130/80 most of the time. Recommend standing BP since since she was noted have elevated BP during the tilt table. Dyslipidemia: On Lipitor 80 mg daily. Small vessel diease/coronary vasospam: On Imdur 120 mg daily, Cardizem CD 120 mg PM and Ranexa 1000mg BiD. (she had stopped Cardizem CD 240 mg AM) Chronic diastolic HF: Plan for Bumex 1 mg Q3-4days. Daily weight recommended. Weight stable. Follow up in 4 months. Recommended goal BP < 130/80 consistently, LDL << 70, HbA1c < 6.5. Patient's diease process and its evaluation and treatment were discussed. We discussed each of for cardio vascular-related problems and discussed long-term goals and expectations for the each problem.I reviewed each of the cardiac medications in detail. Reviewed the medication with patient in detail recommended to continue taking the current medications without further changes. Recommended, explained and stressed the importance of healthy eating habits and exercises and lifestyle modifications Follow up as planned is predicated on symptoms stability and/or acceptable test results. Patient is urged to call in sooner should problems arise or if there is no improvement in cardiac symptoms. ER warning signs and symptoms explained and patient verbalized understanding. My diagnostic impression and treatment plans were discussed at length with the patient and her parents. All side effects as well as drug-drug interactions and risks discussed at length. Ample opportunity was offered and encouraged to ask questions during this visit and patient appreciated the answers given by me and verbzalised statisfcation in the answers given. We reviewed the [place] [employer] recommendations for reduction of overall cardio vascular risk. The importance of monitoring the blood pressure carefully both at home on regular basis along with other physicians appointment was stressed in detail. In addition we discussed target LDL levels for optimal risk reduction. It was advised that to daily physical activity be performed with 30 minutes of sustained exercise for both cardio vascular fitness and improvement for generalized medical health and well-being. Deep Bolton MD Gift Shop Assistant, Division of Cardiology [facility] documented in this encounter Plan of Treatment Date Type Specialty Care Team Description 06/26/2020 Office Visit Endocrinology Diabetes & Landy Bates MD [address] [place], [place] [address] [phone] 06/30/2020 Office Visit Psychiatry Janusz Koch MD [address] [place] [address]. [place] [phone] 07/05/2020 Office Visit Urology Nanda Lutz FNP [address] [facility] 102 [place], [place] [address] 07/06/2020 Office Visit Neurology Anum Connor A NP [address] [place] [phone] 10/20/2020 Office Visit Cardiology Justo Bolton MD [address] [facility] 106 [place], [place] [phone] 01/11/2021 Office Visit Pulmonary Disease Nino Bennett, [address] [place] [phone] Health Maintenance Due Date Last Done Comments [...] filedocumented in this encounter Visit Diagnoses Diagnosis POTS (postural orthostatic tachycardia s yndrome) - Primary Tachycardia, unspecified Orthostatic hypertension Essential hypertension Unspecified essential hypertension Chronic diastolic heart failure Dyslipidemia Other and unspecified hyperlipidemia ORTIZ (dyspnea on exertion) Other dyspnea and respiratory abnormalit y Coronary artery disease involving tuolumne coronary artery of tuolumne heart without angina pectoris documented in this encounter Insurance Payer Benefit Plan Subscriber ID Effective Phone Address Typ e / Group Dates AETNA - AETNA [id number] 2019-Jose P [address]OX Me dicare Adv MANAGED MEDICARE ADV nt [id number] [place] [address] documented as of this encounter
--- OUTSIDE RECORDS SUMMARY | 2020-07-21 07:26 | XMS REPORT | Summary of Care ---
:1975 Author Organization [facility] Address [address] [place] [address] Care Team Providers Name Role Phone Kaye Gupta MD Primary Care Provider Encounter Details Date Type Department Care Team Description 05/22/2020 Patient Secure Msg [facility] Health Radiolog y Doctor Unassigned, [address] [place] [address] [address] [place] [address] [place] [address] Allergies Active Allergy Reactions Severity Noted Date [...] as of this encounter (statuses as of 06/24/2020) Medications Medication Sig Dispensed Refills Start Date [...] 2 Coronary artery (two) days. disease involving o[place] coronary artery of [place] heart without angina pectoris, Essential hypertension, Dyslipidemia, [...] 27 mg by 0 Active 27 mg [place] MAGNESIUM mouth 3 (three) (MAG-G) tablet times [...] tabletIndications: mouth daily. Coronary artery disease involving [place] coronary artery of omaha heart with angina pectoris, Essential hypertension traZODone [...] Coronary artery for Chest pain. disease involving o[place] coronary artery of omaha heart with angina pectoris TOPIRAMATE 50 mg [...] 4 (four) hours without aura and without status as needed (N/V or migrainosus, not intractable, migraine headache). Intractable acute post-traumatic headache isosorbide mononitrate 120 mg Take 1 tablet by mouth 90 tablet 0 05/15/2020 Active 24 hr tabletIndications: Morbid every morning. obesity with body mass index of 40.0-49.9, Coronary artery disease involving autologous artery coronary bypass graft without angina pectoris nystatin 100,000 unit/gram Apply to area(s) 2 30 g 1 Active ointmentIndications: Yeast (two) times daily. infection documented as of this encounter (statuses as of 06/24/2020) Active Problems Problem Noted Date Adnexal mass [...] stenosis Atherosclerosis of artery Bulging lumbar disc [place] (mitral incompetence) Polycystic ovarian disease GERD (gastroesophageal reflux disease) Anxiety Agoraphobia Panic disorder HTN (hypertension) Gastric polyp Asthma Overview: As a child Allergic rhinitis documented as of this encounter (statuses as of 06/24/2020) Resolved Problems Problem Noted Date Resolved Date Nicotine use disorder 02/08/2019 04/20/2019 Overview: vaping Postprandial vomiting 01/04/2017 01/19/2018 documented as of this encounter (statuses as of 06/24/2020) Immunizations Name Administration Dates Next Due Influenza [...] Description 06/26/2020 Office Visit Endocrinology Diabetes & Paulo, Landy Restrepo MD Metabolism [address] [facility], [facility] 400 [place], [place] [address] [phone] 06/30/2020 Office Visit Psychiatry Janusz Koch MD [address] [facility] [place] [phone] 07/05/2020 Office Visit Urology Nanda Lutz FNP [address] [facility] 102 [place], [place] [address] 07/06/2020 Office Visit Neurology Anum Connor A NP [address] [place] [phone] 10/20/2020 Office Visit Cardiology Justo Bolton MD [address] [facility] [facility] 106 [place], [place] [phone] 01/11/2021 Office Visit Pulmonary Disease Nino Bennett, [facility] [place] [address] Health Maintenance Due Date Last Done Comments [...] Resolved Time COVID-19 Rule Out 06/20/2020 06/20/2020 06/21/2020 3: 38 PM CDT documented as of this encounter Insurance Payer Benefit Plan Subscriber ID Effective Phone Address Typ e / Group Dates AETNA - AETNA [id number] 2019-Jose P [address] BOX Me dicare Adv MANAGED MEDICARE ADV nt [id number] [place] [address] documented as of this encounter
--- OUTSIDE RECORDS SUMMARY | 2020-07-21 07:27 | XMS REPORT | Summary of Care ---
:1975 Author Organization [facility] Address [address] [place] [address] Care Team Providers Name Role Phone Kaye Gupta MD Primary Care Provider Reason for Visit Reason Comments Medication Assistance Encounter Details Date Type Department Care Team Description 06/28/[address] [facility] ADC Nino Bennett DO Medication Assistance Pul[facility] [address] , [address] [place] [phone] Allergies Active Allergy Reactions Severity Noted Date [...] as of this encounter (statuses as of 06/30/2020) Medications Medication Sig Dispensed Refills Start Date [...] 2 Coronary artery (two) days. disease involving [place] coronary artery of [place] heart without angina pectoris, Essential hypertension, Dyslipidemia, [...] 27 mg by 0 Active 27 mg [place] MAGNESIUM mouth 3 (three) (MAG-G) tablet times [...] tabletIndications: mouth daily. Coronary artery disease involving [place] coronary artery of [place] heart with angina pectoris, Essential hypertension diltiazem 120 mg 24 TK 1 C [...] Coronary artery for Chest pain. disease involving [place] coronary artery of [place] heart with angina pectoris TOPIRAMATE 50 mg [...] DAILY Fluticasone-Salmeterol Inhale 1 Puff 60 Each 11 06/29/2020 Active (ADVAIR DISKUS) 500-50 every 12 mcg/dose inhalation (twelve) hours. diskIndications: Moderate persistent asthma without complication Fluticasone-Salmeterol Inhale 1 Puff 60 Each 06/23/2020 Discontinued (WIXELA INHUB) 500-50 every (Alternate mcg/dose inhalation (twelve) hours. 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 Premenopausal patient 06/26/2020 Hair changes 06/26/2020 Adnexal mass 06/01/2020 Overview: left Left nephrolithiasis 06/01/2020 Chronic inflammation of colon 06/01/2020 Intertrigo 06/01/2020 Fatigue, unspecified type 05/22/2020 Low serum cortisol [...] as of this encounter (statuses as of 06/30/2020) Resolved Problems Problem Noted Date Resolved Date Nicotine use disorder 02/08/2019 04/20/2019 Overview: vaping Postprandial vomiting 01/04/2017 01/19/2018 documented as of this encounter (statuses as of 06/30/2020) Immunizations Name Administration Dates Next Due Influenza [...] been in contact with No / Unsure 06/30/2020 1:17 PM CDT someone who was confirmed or suspected to have Coronavirus / COVID-19? documented as of this encounter Last Filed Vital Signs Not on filedocumented in this encounter Plan of Treatment Date Type Specialty Care Team Description 06/30/2020 Office Visit Psychiatry Theo Zavaleta MD [address] [facility] [place] [address] [facility] Lino Koch MD [address] [place] [phone] 07/05/2020 Office Visit Urology Nanda Lutz, DEGREE CLERK [address] [address] [phone] 07/06/2020 Office Visit Neurology Anum Connor A [address] [phone] 10/06/2020 Office Visit Cardiology Justo Bolton MD [address] [facility] [facility] 106 [place], [place] [phone] 01/11/2021 Office Visit Pulmonary Disease Nino Bennett DO [address] [place] [phone] Health Maintenance Due Date Last Done [...] without compl ication - Primary Unspecified asthma documented in this encounter Insurance Payer Benefit Plan Subscriber ID Effective Phone Address Typ e / Group Dates AETNA - AETNA [id number] 2019-Jose TURNER Me dicare Adv MANAGED MEDICARE ADV [place] [id number] [place] [address] documented as of this encounter
--- OUTSIDE RECORDS SUMMARY | 2020-07-21 07:27 | XMS REPORT | Summary of Care ---
:1975 Author Organization [facility] Address [address] [place] [address] Care Team Providers Name Role Phone Kaye Gupta MD Primary Care Provider Reason for Visit Reason Comments Follow-up pt confirm all meds and phar yamilet Encounter Details Date Type Department Care Team Description 06/26/2020 Office Visit [facility] Landy Baets, Irritable bowel syndrome with diarrhea (Primary Dx); Endocrinology, Denilson NATARAJAN Euthyroid goiter; [address], Premenopausal patient; [address] [place] [address], [facility] [address] [place] [address] [place], [place] [phone] [address] [phone] Allergies Active Allergy Reactions Severity Noted Date [...] as of this encounter (statuses as of 06/26/2020) Medications Medication Sig Dispensed Refills Start Date [...] 2 Coronary artery (two) days. disease involving [place] coronary artery of [place] heart without angina pectoris, Essential hypertension, Dyslipidemia, [...] 27 mg by 0 Active 27 mg [place] MAGNESIUM mouth 3 (three) (MAG-G) tablet times [...] tabletIndications: mouth daily. Coronary artery disease involving [place] coronary artery of [place] heart with angina pectoris, Essential hypertension diltiazem [...] Coronary artery for Chest pain. disease involving [place] coronary artery of [place] heart with angina pectoris TOPIRAMATE 50 mg [...] Fluticasone-Salmeterol Inhale 1 Puff 60 Each 11 06/23/2020 Active (WIXELA INHUB) 500-50 every 12 mcg/dose inhalation (twelve) hours. diskIndications: Moderate persistent asthma without complication, Morbid obesity, JOSE (obstructive sleep apnea) traZODone 100 mg Take one to two 180 tablet 1 01/25/202006/26 Discontinued tabletIndications: tablets (Discontinued by Insomnia due to medical night as needed another condition for insomnia clinici an) documented as of this encounter (statuses as of 06/26/2020) Active Problems Problem Noted Date Euthyroid goiter [...] as of this encounter (statuses as of 06/26/2020) Resolved Problems Problem Noted Date Resolved Date Nicotine use disorder 02/08/2019 04/20/2019 Overview: vaping Postprandial vomiting 01/04/2017 01/19/2018 documented as of this encounter (statuses as of 06/26/2020) Immunizations Name Administration Dates Next Due Influenza [...] been in contact with No / Unsure 06/26/2020 2:07 PM CDT someone who was confirmed or suspected to have Coronavirus / COVID-19? documented as of this encounter Last Filed Vital Signs Vital Sign Reading Time Taken Comments Blood Pressure 110/82 06/26/2020 2:23 PM CDT Pulse 83 06/26/2020 2:23 PM CDT Temperature 36.6 C (97.8 F) 06/26/2020 2:23 PM CDT Respiratory Rate - - Oxygen Saturation 96% 06/26/2020 2:23 PM CDT Inhaled Oxygen Concentration - - Weight 113.9 kg (251 lb 3.2 oz) 06/26/2020 2:23 PM CDT Height 152.4 cm (5') 06/26/2020 2:23 PM CDT Body Mass Index 49.06 06/26/2020 2:23 PM CDT documented in this encounter Progress Notes Landy Bates MD - 06/26/2020 2:30 PM CDT Cc: Chief Complaint Patient presents with Follow-up pt confirm all meds and pharmacy Yanci Man is a 45 year old female. HPI Patient complain chronic nausea and diarrhea from last many years, she take a lot of medications prescribed by multiple physicians. Recently has trouble with scalp hair loss. Patient suffer from obesity, sleep apnea, seizure disorder, migraine, angina, and hypertension. Recent CT revealed a ovarian mass and kidney stone, adrenals are normal. Medications Outpatient Medications Prior to Visit Medication Sig Dispense Refill Fluticasone-Salmeterol (WIXELA INHUB) 500-50 mcg/dose inhalation disk Inhale 1 Puff every 12 (twelve) hours. 60 Each 11 RANOLAZINE 1,000 mg tablet TAKE 1 TABLET BY MOUTH TWICE DAILY 180 tablet 1 isosorbide mononitrate 120 mg 24 hr tablet Take 1 tablet by mouth every morning. 90 tablet 0 nitroglycerin (NITROSTAT) 0.[address] 1 tablet under the tongue every 5 (five) minutes as needed for Chest pain. 1 Bottle 3 diltiazem 120 mg 24 hr capsule TK 1 C PO QPM losartan 25 mg tablet Take 1 tablet by mouth daily. 90 tablet 3 CLOPIDOGREL 75 mg tablet TAKE 1 TABLET BY MOUTH DAILY 90 tablet 2 aspirin 81 mg chewable tablet Take 1 tablet by mouth daily. 30 tablet 11 atorvastatin 80 mg tablet Take 1 tablet by mouth every morning. 90 tablet 3 bumetanide 1 mg tablet Take 1 tablet by mouth every 2 (two) days. 15 tablet 5 nystatin 100,000 unit/gram ointment Apply to area(s) 2 (two) times daily. 30 g 1 proMETHazine 25 mg tablet Take 1 tablet by mouth every 4 (four) hours as needed (N/V or migraineheadache). 90 tablet 6 PRIMIDONE 50 mg tablet TAKE 1 TABLET BY MOUTH TWICE DAILY (Patient taking differently: Take 50 mg by mouth daily.) 180 tablet 3 TOPIRAMATE 50 mg tablet TAKE 3 TABLETS BY MOUTH TWICE DAILY 540 tablet 3 busPIRone 5 mg tablet Take 4 tablets by mouth three times per day 360 tablet 2 traZODone 100 mg tablet Take one to two tablets at night as needed for insomnia 180 tablet 1 LEVALBUTEROL 0.63 mg/3 mL nebulizer solution USE 1 VIAL BY NEBULATION THREE TIMES DAILY NEEDED FOR WHEEZING, SHORTNESS OF BREATH OR CHEST TIGHTNESS 75 mL 5 magnesium gluconate 27 mg [place]TON MAGNESIUM (MAG-G) tablet Take 27 mg by mouth 3 (three) times daily. MONTELUKAST 10 mg tablet TAKE 1 TABLET BY MOUTH EVERY EVENING 30 tablet 11 Diclofenac Sodium 1 % gel BLAINE 2 GRAMS EXT AA QID 0 HYDROcodone-acetaminophen 7.5-325 mg per tablet TK 1 T PO BID. 0 pantoprazole 40 mg EC tablet 0 tiZANidine 4 mg tablet TK 1 T PO TID 0 albuterol 1.25 mg/3 mL nebulizer solution Use 3 mL as directed every 6 (six) hours as needed forWheezing. 1 Box 11 gabapentin 600 mg tablet Take 600 mg by mouth 5 (five) times daily. No facility-administered medications prior to visit. Review of Systems Constitutional: Positive for weight gain. HENT: Negative. Respiratory: Negative. Cardiovascular: Positive for chest pain. Gastrointestinal: Positive for diarrhea and nausea. Musculoskeletal: Negative. Neurological: Positive for seizures. Psychiatric/Behavioral: Negative. Endocrine: Endocrine negativePositive for weight gain. Vital Signs BP 110/82 (BP Location: Right arm, Patient Position: Sitting, BP CUFF SIZE: Adult Large) | Pulse 83 | Temp 36.6 C (97.8 F) | Ht 5' (1.524 m) | Wt 251 lb 3.2 oz (113.9 kg) | SpO2 96% | BMI 49.06 kg/m Physical Exam Constitutional: She is oriented [...] normal. Assessment/Plan Yanci was seen today for follow-up. Diagnoses and all orders for this visit: Irritable bowel syndrome with diarrhea Euthyroid goiter Premenopausal patient Hair changes Polypharmacy, adviced her to let pharmacist check for interactions and side effects. She is euthyroid, assured her adrenal are functional, no evidence of hyperandrogenism, still premenopausal. She needed a gastric bypass rather then gastric band which she ended up removing. Sleep apnea, I do not know how compliant she is with CPAP. documented in this encounter Plan of Treatment Date Type Specialty Care Team Description 06/30/2020 Office Visit Psychiatry Janusz Koch MD [address] [place] [address]. [place] [phone] 07/05/2020 Office Visit Urology Nanda Lutz, BASKET PATCHER [address] [facility] 102 [place], [place] [address] 07/06/2020 Office Visit Neurology Anum Connor A NP [address] [place] [address] [phone] 10/20/2020 Office Visit Cardiology Justo Bolton MD [address] [facility] 106 [place], [place] [phone] 01/11/2021 Office Visit Pulmonary Disease Nino Bennett, DO [address] [place] [phone] Health Maintenance Due Date Last Done [...] Problems Progress 5 lb weight General Yes [place], loss by next Marlee Restrepo MD visit documented as of this encounter Results Not on filedocumented in this encounter Visit Diagnoses Diagnosis Irritable bowel syndrome with diarrhea - Primary Irritable bowel syndrome Euthyroid goiter Goiter, unspecified Premenopausal patient Symptomatic menopausal or female climact jocy states Hair changes Unspecified disease of hair and hair fol licles documented in this encounter Insurance Payer Benefit Plan Subscriber ID Effective Phone Address Typ e / Group Dates AETNA - AETNA [id number] 2019-[address] Me dicare Adv MANAGED MEDICARE [place]V nt [id number] [address] documented as of this encounter"
--- OUTSIDE RECORDS SUMMARY | 2020-07-21 07:27 | XMS REPORT | Summary of Care ---
:1975 Author Organization [facility] Address [address] [place] [address] Care Team Providers Name Role Phone Kaye Gupta MD Primary Care Provider Reason for Visit Reason Comments Follow-up pt confirm all meds and phar yamilet Encounter Details Date Type Department Care Team Description 06/26/2020 Office Visit [facility] Landy Bates, Irritable bowel syndrome with diarrhea (Primary Dx); Endocrinology, Denilson NATARAJAN Euthyroid goiter; [address], Premenopausal patient; [address] [place] [address], [facility] [address] [place] [address] [place], [place] [phone] [phone] Allergies Active Allergy Reactions Severity Noted Date [...] 2 Coronary artery (two) days. disease involving [place] coronary artery of [place] heart without angina pectoris, Essential hypertension, Dyslipidemia, [...] 27 mg by 0 Active 27 mg [place] MAGNESIUM mouth 3 (three) (MAG-G) tablet times [...] tabletIndications: mouth daily. Coronary artery disease involving [place] coronary artery of [place] heart with angina pectoris, Essential hypertension diltiazem [...] Coronary artery for Chest pain. disease involving [place] coronary artery of [place] heart with angina pectoris TOPIRAMATE 50 mg [...] stenosis Atherosclerosis of artery Bulging lumbar disc MS (mitral incompetence) Polycystic ovarian disease GERD (gastroesophageal [...] 75 mL 5 magnesium gluconate 27 mg [place] MAGNESIUM (MAG-G) tablet Take 27 mg by [...] 06/30/2020 Office Visit Psychiatry Janusz Koch MD [address] [place] [address]. [place] [address] [phone] 07/05/2020 Office Visit Urology Nanda Lutz, EMAIL SPECIALIST [address] [facility] 102 [place], [place] [address] 07/06/2020 Office Visit Neurology Anum Connor A NP [address] [place] [address] [phone] 10/20/2020 Office Visit Cardiology Justo Bolton MD [address] [facility] 106 [place], [place] [phone] 01/11/2021 Office Visit Pulmonary Disease Nino Bennett, DO [address] [place] [phone] Health Maintenance Due Date Last Done [...] Problems Progress 5 lb weight General Yes [place], loss by next Marlee Restrepo MD visit [...] e / Group Dates AETNA - AETNA [id number] 2019-Prese [address] Me dicare Adv [place]NAGED MEDIC[place] nt [id number] [place] [address] documented as of this encounter"
--- OUTSIDE RECORDS SUMMARY | 2020-07-21 07:29 | XMS REPORT | Clinical Summary ---
:1975 Author Organization [facility] Address [address] [place] [id number] Care Team Providers Name Role Phone Kaye Gupta MD Primary Care Provider Allergies Active Allergy Reactions Severity Noted Date [...] to confirm with pt, unknown reactio n. Medications Medication Sig Dispensed Refills Start Date [...] 2 Coronary artery (two) days. disease involving cher-ae heights coronary artery of cher-ae heights heart without angina pectoris, Essential hypertension, Dyslipidemia, [...] 27 mg by 0 Active 27 mg SOBOBA MAGNESIUM mouth 3 (three) (MAG-G) tablet times [...] tabletIndications: mouth daily. Coronary artery disease involving cher-ae heights coronary artery of cher-ae heights heart with angina pectoris, Essential hypertension diltiazem 120 mg 24 TK 1 C PO QPM 0 01/02/2020 Active hr capsule nitroglycerin Place 1 tablet 1 Bottle 3 02/22/2020 Active (NITROSTAT) 0.4 mg under the tongue sublingual every 5 (five) tabletIndications: minutes as needed Coronary artery for Chest pain. disease involving cher-ae heights coronary artery of cher-ae heights heart with angina pectoris TOPIRAMATE 50 mg [...] tabletIndications: mouth every 4 Migraine without aura and (four) hours as without status needed (N/V or migrainosus, not migraine intractable, Intractable headache). acute post-traumatic headache isosorbide mononitrate 120 Take 1 tablet by 90 tablet 0 2019 Active mg 24 hr mouth every tabletIndications: Morbid morning. 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 RANOLAZINE 1,000 mg tablet TAKE 1 TABLET BY 180 tablet 1 05/26 Active MOUTH TWICE DAILY Fluticasone-Salmeterol Inhale 1 Puff 60 Each 11 06/29/2020 Active (ADVAIR DISKUS) 500-50 every 12 (twelve) mcg/dose inhalation hours. diskIndications: Moderate persistent asthma without complication busPIRone 5 mg Take 4 tablets by 360 tablet 3 06/30/2020 Active tabletIndications: mouth three times Generalized anxiety per day disorder fluconazole 50 mg Take 1 tablet by 7 tablet 0 06/01/202008/20 tabletIndications: mouth daily for 7 20 Intertrigo days. Hospital, Clinic, or Other Ordered Dose Route Frequency Start Date End Date Status Facility Administered Medication cosyntropin (CORTROSYN) 250 mcg IM ONCE 06/13/202006/13 Ended injection 250 mcgIndications: Low serum cortisol level Active Problems Problem Noted Date Euthyroid goiter [...] Asthma Overview: As a child Allergic rhinitis Resolved Problems Problem Noted Date Resolved Date Nicotine use disorder 02/08/2019 04/20/2019 Overview: vaping Postprandial vomiting 01/04/2017 01/19/2018 Encounters Date Type Specialty Care Team Description 06/30/2020 Travel 06/28/2020 Telephone Pulmonary Disease Nino Bennett, Medicatio n Assistance DO 06/26/2020 Office Visit Endocrinology Paulo, Irritable maurilio l syndrome with diarrhea (Primary Dx); Diabetes & Landy Restrepo MD Euthyroid goi ter; Metabolism Premenopausal p atient; Hair changes 06/26/2020 Travel 06/23/2020 Office Visit Pulmonary Disease Nino Bennett, Moderate persistent asthma without complication (Primary Dx); DO Morbid obesity; JOSE (obstructiv e sleep apnea) 06/23/2020 Travel 06/20/2020 Urgent Care Family Medicine Anene, Diarrhea, un specified type (Primary Dx); MISBAH Butts Suspected Covid-19 Virus Infection Pob1, Acute Care Clinic 06/20/2020 Travel 06/19/2020 Telemedicine Visit Cardiology Justo Bolton POTS (p ostural orthostatic tachycardia syndrome) (Primary Dx); MD Damien Orthostatic hyp ertension; Essential hyper tension; Chronic diastol ic heart failure; Dyslipidemia; ORTIZ (dyspnea on exertion); Coronary artery disease involving cher-ae heights coronary artery of cher-ae heights heart without angina pectoris 06/13/2020 Delicatessen Clerk Visit Phlebotomy Paulo, Low serum c ortisol Landy Restrepo MD level Draw, Clc-Bls Lab 06/13/2020 Nurse Visit Endocrinology Jaron Bates serum monique isol Diabetes & Landy Restrepo MD level (Primary Dx) Metabolism Nurse, Bls Cbc Endo 06/13/2020 Travel 06/08/2020 Orders Only Doctor Unassigned, [place] 06/01/2020 Office Visit Family Chantel Gupta, Adnexal mass (Primary Dx); Marlee Restrepo MD Left nephroli thiasis; Left flank pain ; Chronic inflamm ation of colon; Abnormal CT sca n, colon; POTS (postural orthostatic tachycardia syndrome); Polypharmacy; Intertrigo 05/31/2020 Travel 05/30/2020 Hospital Encounter Radiology Anum Connor ANP 05/30/2020 Hospital Encounter Radiology Landy Bates MD 05/30/2020 Hospital Encounter Radiology Anum Connor ANP 05/25/2020 Refill Cardiology Bolton, Sendil Refill Bobby Quezada MD 05/22/2020 Office Visit Endocrinology Kirill Vasquez ase (Primary Dx); 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, CAD CAM PROGRAMMER Fatigue, unspecified type Metabolism Landy Bates MD 05/22/2020 Travel 05/18/2020 Telephone Family Medicine Candy, Assessment Marlee Restrepo MD 05/16/2020 Travel 05/16/2020 Telephone Cardiology Olivia Forms; Notifi cation; Manan barnhart MD Talk To Nurse 05/12/2020 Refill Cardiology Bolton, Sendil Refill Bobby Quezada MD 05/11/2020 Delicatessen Clerk Visit Phlebotomy Paulo Hypocortiso lemia; Landy Restrepo MD Prinzmetal variant angina; Draw, Clc-Bls Fatigue, unspe cified type; Lab Hair loss 05/11/2020 Nurse Visit Endocrinology Connor Batesortisolem ia Diabetes & Landy Restrepo MD (Primary Dx) Metabolism Nurse, Bls Cbc Endo 05/11/2020 Travel 05/10/2020 Orders Only Doctor Unassigned, [place] 05/09/2020 Office Visit Neurology Anum Connor, Migraine with out aura and without status migrainosus, not intractable (Primary Dx); ANP Intractable acu te post-traumatic headache; Decreased corti savannah level 05/08/2020 Office Visit Endocrinology Paulo, Hypocortisolem ia (Primary Dx); Diabetes & Landy Restrepo MD Hair loss; Metabolism Fatigue, unspec ified type; Prinzmetal vari ant angina 05/08/2020 Travel 05/04/2020 Case Management Family Medicine Candy, REFERRAL Marlee Restrepo MD 05/03/2020 Refill Cardiology Hoang, Sendil Refill Bobby Quezada MD 05/02/2020 Office Visit Surgery Lorenzo, Bursitis of lef t Tina Barnhart MD shoulder (Prima ry Dx) 05/02/2020 Travel 05/01/2020 Delicatessen Clerk Visit Phlebotomy Candy, Acute UTI; Marlee Restrepo MD Hair loss; 2, Adc Lab Fatigue, unspec ified type 05/01/2020 Office Visit Family Medicine Candy, Acute headac he due to traumatic injury of head (Primary Dx); Marlee Restrepo MD Traumatic inj ury of head, subsequent encounter; Hair loss; Fatigue, unspec ified type 05/01/2020 Orders Only Doctor Unassigned, [place] 05/01/2020 Travel 04/28/2020 Telephone Neurology Anum Connor, Appointment ( sooner ANP appt / hfu) 04/19/2020 Emergency Emergency Medicine Diane Vega Facial injury, initial encounter (Primary Dx); G, ADOBE DEVELOPER Acute intractab le headache, unspecified headache type; Blurred vision, left eye; Contusion of fa ce, initial encounter; Contusion of ri ght forearm, initial encounter; Screening for v iral disease; Struck accident ally by falling object, initial encounter; Activity, other specified; Anemia, unspeci fied type; Uncomplicated a sthma, unspecified asthma severity, unspecified whether persistent; Atherosclerosis of cher-ae heights coronary artery without angina pectoris, unspecified whether cher-ae heights or transplanted heart; Depression, uns pecified depression type; Endometriosis; Gastroesophagea l reflux disease, esophagitis presence not specified; Essential hyper tension, benign; Hyperlipidemia, unspecified hyperlipidemia type; Uterine leiomyo ma, unspecified location; Spinal stenosis , unspecified spinal region; Old myocardial infarction; Obstructive sle ep apnea (adult) (pediatric); Polycystic ovar young syndrome; Other specified cardiac arrhythmias; Prinzmetal evaristo na; Encounter for l denisse-term (current) use of aspirin; Encounter for l denisse-term (current) use of other medications; Personal histor y of allergy to other antibiotic agent; Personal histor y of allergy to other specified medicinal agents; Allergy to othe r foods; Allergy to adhe sive tape 04/19/2020 Urgent Care Family Medicine Olivia Severe hea Manan trevino MD (Primary Dx) Pob1, Acute Care Clinic 04/19/2020 Telemedicine Visit Cardiology Olivia Orthost Manan galeano MD hypertension (P rimary Dx) 04/19/2020 Travel 04/04/2020 Orders Only Doctor Unassigned, [place] 04/02/2020 Telephone Family Medicine Gemma Gupta MD from Last 3 Months Immunizations Name Administration Dates Next Due Influenza Virus Vaccine Quad IM 3+ YRS 10/26/2018 Influenza Virus Vaccine Quad IM Multi-dose 6+ MO 09/10/2017 Pneumococcal Polysaccharide, PPSV23 (PNEUMOVAX) 01/09/2017 TDAP (ADACEL) VACCINE 01/09/2017 Family History Medical History Relation Name Comments Coronary Heart Disease Father Diabetes Father Heart Father Breast Cancer Maternal Aunt 40s, unilateral. Recurrence in 50s Cancer Maternal Aunt ovarian, breast x's 2 Ovarian Cancer Maternal Aunt same aunt who barrios s breast cancer, 40s Cataracts Maternal Grandfather Arthritis Maternal Grandmother Asthma Maternal Grandmother Breast Cancer Maternal Grandmother Cancer Maternal Grandmother Cataracts Maternal Grandmother Arthritis Mother Asthma Mother Cancer Mother colon Colon Cancer Mother 40s, recurrence in 60s Depression Mother Hypertension Mother Kidney disease Mother Miscarriages / Stillbirths Mother Stroke Mother Thyroid Mother Uterine Cancer Mother 40s Cancer Paternal Grandfather Coronary Heart Disease Paternal Grandfather Stroke Paternal Grandfather Diabetes Paternal Grandmother defects NoFHx Genetic NoFHx High cholesterol NoFHx Mental retardation NoFHx Neurological NoFHx Osteoporosis NoFHx Other - see comments NoFHx Psychiatry NoFHx Relation Name Status Comments Father Maternal Aunt Alive Maternal Grandfather Maternal Grandmother Mother Paternal Grandfather Paternal Grandmother Social History Tobacco Use Types Packs/Day Years Used Date Former Smoker Cigarettes 0.5 15 Quit: 01/2017 Smokeless Tobacco: Never Used Qu it: 11/30/2014 Tobacco Cessation: Counseling Given: No Comments: quit tobacco in 03/2018, quit v [...] or suspected to have Coronavirus / COVID-19? Last Filed Vital Signs Vital Sign Reading Time Taken Comments Blood Pressure 120/81 06/30/2020 1:30 PM CDT Pulse 75 06/30/2020 1:30 PM CDT Temperature 36.6 C (97.8 F) 06/26/2020 2:23 PM CDT Respiratory Rate 19 06/30/2020 1:30 PM CDT Oxygen Saturation 96% 06/26/2020 2:23 PM CDT Inhaled Oxygen Concentration - - Weight 113.4 kg (250 lb) 06/30/2020 1:30 PM CDT Height 152.4 cm (5') 06/26/2020 2:23 PM CDT Body Mass Index 48.82 06/26/2020 2:23 PM CDT Plan of Treatment Date Type Specialty Care Team Description 07/05/2020 Office Visit Urology Nanda Lutz FNP [address] [facility] [address] [place] [phone] 07/06/2020 Office Visit Neurology Anum Connor A [address] [place] [address] [phone] 10/06/2020 Office Visit Cardiology Justo Bolton MD [address] [facility] [address] [place] [phone] [phone] 01/11/2021 Office Visit Pulmonary Disease Nino Bennett DO [address] [place] [phone] Health Maintenance Due Date Last Done Comments Breast Cancer Screening (MAMMOGRAM) 02/23/2020 02/22/2019, 02/20/2018, 01/17/2017 PAP SMEAR 06/21/2020 06/21/2019, 06/21/2019, 08/01/2016 (Previously completed) INFLUENZA VACCINE (#1) 2020 10/26/2018, 09/10/2017 Depression Screening 06/30/2021 06/30/2020, 06/30/2020 DTaP,Tdap,and Td Vaccines (2 - Td) 01/09/2027 01/09/2017 PNEUMOCOCCAL 0-64 YEARS COMBINED Completed 01/09/2017 SERIES Goals Goal Patient Goal Associated Recent Patient-Stated? Author Type Problems Progress 5 lb weight General Yes Candy, loss by next Marlee Restrepo MD visit Procedures Procedure Name Priority Date/Time Associated Diagnosis Comme nts COVID-19 (PCR MOLECULAR Routine 06/20/2020 Suspected Covid-1 9 Results for TESTING) 1:48 PM CDT Virus Infection this procedu re are in the results section. CORTISOL STIMULATION 60 MIN Routine 06/13/2020 Low serum cor tisol Results for 9:36 AM CDT level this procedure are in the results section. CORTISOL STIMULATION 30 MIN Routine 06/13/2020 Low serum cor tisol Results for 9:06 AM CDT level this procedure are in the results section. CORTISOL STIMULATION 0 MIN Routine 06/13/2020 Low serum monique isol Results for 8:36 AM CDT level this procedure are in the results section. MEDICATION CORRESPONDENCE Routine 06/13/2020 12:01 AM CDT EXTERNAL PROVIDER RECORDS Routine 06/08/2020 12:01 AM CDT MR BRAIN W WO CONTRAST Routine 05/30/2020 Intractable acute Results for 10:43 AM CDT post-traumatic this procedur e headache are in the Decreased cortisol results level section. MR PITUITARY W WO CONTRAST Routine 05/30/2020 Intractable ac helena Results for 10:09 AM CDT post-traumatic this procedur e headache are in the Decreased cortisol results level section. CT ABDOMEN PELVIS W Routine 05/30/2020 Corbin disease Resul ts for CONTRAST 9:22 AM CDT this procedure are in the results section. HB CREATININE BLOOD Routine 05/30/2020 Results for 9:14 AM CDT this procedure are in the results section. PATIENT QUESTIONNAIRE Routine 05/30/2020 12:01 AM CDT CORTISOL STIMULATION 60 MIN Routine 05/11/2020 Hypocortisole norman Results for 9:37 AM CDT this procedure are in the results section. CORTISOL STIMULATION 30 MIN Routine 05/11/2020 Hypocortisole norman Results for 9:07 AM CDT this procedure are in the results section. CORTISOL STIMULATION 0 MIN Routine 05/11/2020 Hypocortisolem ia Results for 8:37 AM CDT this procedure are in the results section. HEAVY METALS PANEL, BLOOD Routine 05/11/2020 Hair loss Re sults for 8:37 AM CDT this procedure are in the results section. IRON Routine 05/11/2020 Hair loss Results for 8:37 AM CDT this procedure are in the results section. HEPATIC FUNCTION PANEL Routine 05/11/2020 Hair loss Resul ts for (66508) (ALB,T.PRO,BILI 8:37 AM CDT this procedure T,BU/BC,ALT,AST,ALK PHOS) ar e in the results section. URIC ACID Routine 05/11/2020 Fatigue, unspecified Results for 8:37 AM CDT type this procedure are in the results section. CREATINE KINASE Routine 05/11/2020 Fatigue, unspecified Resu lts for 8:37 AM CDT type this procedure are in the results section. SEDIMENTATION RATE Routine 05/11/2020 Fatigue, unspecified R esults for 8:37 AM CDT type this procedure are in the results section. METANEPHRINES, PLASMA Routine 05/11/2020 Prinzmetal variant Results for 8:37 AM CDT angina this procedure are in the results section. ADRENOCORTICOTROPIC HORMONE Routine 05/11/2020 Hypocortisole norman Results for 8:37 AM CDT this procedure are in the results section. MEDICATION CORRESPONDENCE Routine 05/10/2020 12:01 AM CDT ANTI-NUCLEAR ANTIBODY Routine 05/01/2020 Hair loss Results for SCREEN 9:23 AM CDT Fatigue, unspecified this pr ocedure type are in the results section. TESTOSTERONE Routine 05/01/2020 Hair loss Results for 9:23 AM CDT Fatigue, unspecified this pr ocedure type are in the results section. PROLACTIN Routine 05/01/2020 Hair loss Results for 9:23 AM CDT Fatigue, unspecified this pr ocedure type are in the results section. DEHYDROEPIANDROSTERONE Routine 05/01/2020 Hair loss Results for SULFATE 9:23 AM CDT Fatigue, unspecified this pr ocedure type are in the results section. CORTISOL AM Routine 05/01/2020 Hair loss Results for 9:23 AM CDT Fatigue, unspecified this pr ocedure type are in the results section. LUTEINIZING HORMONE SERUM Routine 05/01/2020 Hair l oss Results for 9:23 AM CDT Fatigue, unspecified this pr ocedure type are in the results section. FOLLICLE STIMULATING Routine 05/01/2020 Hair loss Results for HORMONE 9:23 AM CDT Fatigue, unspecified this pr ocedure type are in the results section. HB BKR AB; THYROGLOBULIN Routine 05/01/2020 Hair lo ss Results for 9:23 AM CDT Fatigue, unspecified this pr ocedure type are in the results section. THYROID PEROXIDASE (TPO) Routine 05/01/2020 Hair lo ss Results for AB 9:23 AM CDT Fatigue, unspecified this pr ocedure type are in the results section. THYROID STIMULATING HORMONE Routine 05/01/2020 Hair loss Results for 9:23 AM CDT Fatigue, unspecified this pr ocedure type are in the results section. FREE T4 Routine 05/01/2020 Hair loss Results for 9:23 AM CDT Fatigue, unspecified this pr ocedure type are in the results section. FREE T3 Routine 05/01/2020 Hair loss Results for 9:23 AM CDT Fatigue, unspecified this pr ocedure type are in the results section. URINE CULTURE Routine 05/01/2020 Acute UTI Results for 9:14 AM CDT this procedure are in the results section. URINALYSIS Routine 05/01/2020 Acute UTI Results for 9:14 AM CDT this procedure are in the results section. AGREEMENTS AUTHORIZATIONS Routine 05/01/2020 AND IRREVOCABLE ASSIGNMENTS 12:01 AM CDT (FORM 2001) XR CERVICAL SPINE 3 VW STAT 04/19/2020 Facial injury, Res ults for 12:21 PM CDT initial encounter this proce dure are in the results section. CT HEAD WO CONTRAST STAT 04/19/2020 Facial injury, Result s for 12:13 PM CDT initial encounter this proce dure are in the results section. CT ORBITS WO CONTRAST STAT 04/19/2020 Facial injury, Resu lts for 12:13 PM CDT initial encounte r this procedure Blurred vision, left are in the eye results section. COVID-19 (PCR MOLECULAR STAT 04/19/2020 Acute intractable Results for TESTING) 11:46 AM CDT headache, unspecified this p rocedure headache type are in the results section. URINALYSIS STAT 04/19/2020 Acute intractable Results fo r 11:46 AM CDT headache, unspecified this p rocedure headache type are in the results section. POCT TEST DUARTE 04/19/2020 Facial injury, Result s for 11:44 AM CDT initial encounte r this procedure Acute intractable are in the headache, unspecified result s headache type section. NOTICE OF PRIVACY PRACTICES Routine 04/19/2020 10:50 AM CDT CONSENT/REFUSAL FOR Routine 04/19/2020 DIAGNOSIS AND TREATMENT 10:50 AM CDT ASSIGNMENT OF BENEFITS Routine 04/19/2020 10:50 AM CDT EMERGENCY SERVICES Routine 04/19/2020 AGREEMENTS AND 12:01 AM CDT AUTHORIZATIONS HOME HEALTH - OTHER Routine 04/04/2020 12:01 AM CDT from Last 3 Months Results COVID-19 (PCR MOLECULAR TESTING) (06/20/2020 1:48 PM CDT)Only the most recent of2 resultswithin the time period is included. Pathologist Sig Mimosa SARS-CoV-2 PCR Not Detected Not Detected [facility] Specimen Swab - NASOPHARYNGEAL SWAB Narrative Performed At [employer] SARS-CoV-2 Assay is a nucleic acid [facility] amplification test intended for the qualitative detect ion of RNA from SARS-CoV-2 from nasopharyngeal (ADOBE DEVELOPER) specimens . It is used under Emergency Use Authorizatio n (EUA) by FDA. A positive result is indicative of the presence of SARS-CoV-2 RNA. Clinical correlation with patient hi story and other diagnostic information is necessary to deter mine patient infection status. A negative (Not Detected) result does not preclude SARS-CoV-2 infection. Clinical correlation with gaye ent history and other diagnostic information should be use d in patient management decisions. Invalid: Unable to generate a valid test result on thi s specimen. Please submit a new specimen for repeat te sting if clinically indicated. Performing Organization Address City/State/Zipcode Phone Number [facility] CLIA: [id number], [address] [place], [place] [address] [facility] CORTISOL STIMULATION 60 MIN (06/13/2020 9:36 AM CDT)Only the most recent of2 resultswithin the time period is included. Pathologist netomat MONIQUE 60 15.7 ug/dL [facility] Specimen Blood - VENOUS Narrative Performed At Normal peak serum cortisol is greater than 20 ug/dL 30 -60 [facility] minutes after 25 units of Cosyntropin IV . Biotin has been reported to cause a positive bias, int erpret results relative to patient's use of biotin. Performing Organization Address City/State/Zipcode Phone Number [facility] CLIA: [id number], [address] [place] [address] [facility] CORTISOL STIMULATION 30 MIN (06/13/2020 9:06 AM CDT)Only the most recent of2 resultswithin the time period is included. Pathologist Sig nature MONIQUE 30 13.4 ug/dL [facility] Specimen Blood - VENOUS Narrative Performed At Normal peak serum cortisol is greater than 20 ug/dL 30 -60 [facility] minutes after 25 units of Cosyntropin IV . Biotin has been reported to cause a positive bias, int erpret results relative to patient's use of biotin. Performing Organization Address City/State/Zipcode Phone Number [facility] CLIA: [id number], [address] [place] [address] [facility] CORTISOL STIMULATION 0 MIN (06/13/2020 8:36 AM CDT)Only the most recent of2 resultswithin the time period is included. Pathologist Sig nature MONIQUE 0 10.7 4.5 - 23.0 ug/dL [facility] Specimen Blood - VENOUS Narrative Performed At Biotin has been reported to cause a positive bias, int erpret [facility] results relative to patient's use of biotin. Performing Organization Address City/State/Zipcode Phone Number [facility] CLIA: [id number], [address] [place] [address] [facility] MEDICATION CORRESPONDENCE (06/13/2020 12:01 AM CDT)Only the most recent of2 resultswithin the time period is included. Specimen Performing Organization Address City/State/Zipcode Phone Number HIM EXTERNAL PROVIDER RECORDS (06/08/2020 12:01 AM CDT) Specimen Performing Organization Address City/State/Zipcode Phone Number [facility] MR BRAIN W WO CONTRAST (05/30/2020 10:43 [...] by Resident: Lin Chi MD., have reviewed [facility] study and agree with the above report. Performing Organization Address City/State/Zipcode Phone Number PACS/VR/DOSE MR PITUITARY W WO CONTRAST (05/30/2020 10:09 AM CDT) Specimen Impressions Performed At PACS/VR/DOSE No acute intracranial abnormality. No pituitary abnormality identified. Preliminary Report Dictated by Resident: Lin Chi MD., have reviewed this study and a gree with the above report. Narrative Performed At MRI OF THE BRAIN WITH AND WITHOUT CONTRA ST - PITUITARY PROTOCOL PACS/VR/DOSE HISTORY: Persistent headache s/p trauma, abnormal (low am) cortisol level on recent labs for endocrinology workup COMPARISON:MR brain on 09/27/2017, CT he ad on 04/19/2020 and 03/23/2019 TECHNIQUE: Multiplanar and multisequence imaging of e brain was obtained on a 1.5 [...] by Resident: Lin Chi MD., have reviewed is study and agree with the above report. Performing Organization Address City/State/Zipcode Phone Number PACS/VR/DOSE CT ABDOMEN PELVIS W CONTRAST (05/30/2020 9:22 [...] with herniation of fat Performing Organization Address City/State/Zipcode Phone Number PACS/VR/DOSE POCT CREATININE (05/30/2020 9:14 AM CDT) Pathologist Sig nature POCT Creatinine 0.8 0.5 - 1.1 mg/dL [facility] Specimen Blood - VENOUS Performing Organization Address City/State/Zipcode Phone Number [facility] CLIA: [id number], [address] [place], [place] [address] [facility] PATIENT QUESTIONNAIRE (05/30/2020 12:01 AM CDT) Specimen Performing Organization Address City/[facility]/Zipcode Phone Number HIM METANEPHRINES, PLASMA (05/11/2020 8:37 AM CDT) METANEPH <0.10 0.00 - 0.49 [facility] nmol/L NORMETNEPH 0.57 0.00 - 0.89 [facility] nmol/L METAPF INT See Note [facility] Comment: INTERPRETIVE INFORMATION: Metanephrines, Plasma (Free) This test is useful in the detection of pheochromocyto ma, a rare neuroendocrine tumor. The majority of patients with pheochromocytoma have a plasma normetanephrine concent ration in excess of 2.2 nmol/L and/or a metanephrine concentrati on in excess of 1.1 nmol/L. Increased concentrations of these bhavana chiara serve as confirmation for diagnosis. Patients with essential hy pertension and plasma concentrations of normetanephrine below 0.9 nmol/L and a metanephrine concentration below 0.5 nmol/L, can be excluded from further testing. If clinical suspicion remains, r epeat testing or testing for metanephrines in a 24-hr. urine specimen should be considered. See Compliance Statement B: L2C/CS Performed by [facility], [address] [place], [place] [id number] [email or web address], Davin Weaver MD, Lab. Director Specimen Blood - ARM, RIGHT Performing Organization Address [facility] Phone Number [facility] [address] [place] [address] SEDIMENTATION RATE (05/11/2020 8:37 AM CDT) Pathologist [facility] meliton ESR 6 0 - 20 mm/HR [facility] Specimen Blood - ARM, RIGHT Performing Organization Address [facility]/Zipcode Phone Number [facility] CLIA: [id number], [address] [place] [address] [phone] [facility] [address] HEPATIC FUNCTION PANEL ([id number]) (ALB,T.PRO,BILI T,BU/BC,ALT,AST,ALK PHOS) (05/11/2020 8:37 AM CDT) Pathologist Sig meliton TOTAL BILI 0.3 0.1 - 1.1 mg/dL [facility] BILI UNCON 0.3 0.1 - 1.1 mg/dL [facility] BILI CONJ 0.0 0.0 - 0.3 mg/dL [facility] T PROTEIN 6.5 6.3 - 8.2 g/dL [facility] ALBUMIN 4.1 3.5 - 5.0 g/dL [facility] ALK PHOS 48 34 - 122 U/L [facility] ALTv 20 5 - 35 U/L [facility] AST(SGOT) 20 13 - 40 U/L [facility] Specimen Blood - ARM, RIGHT Performing Organization Address City/[facility] Phone Number [facility] CLIA: [id number], [address] [place] [address] [facility] [address] IRON (05/11/2020 8:37 AM CDT) Pathologist Sig nature IRON 76 50 - 160 ug/dL [facility] Specimen Blood - ARM, RIGHT Performing Organization Address City/[facility] Phone Number [facility] CLIA: [id number], [address] [place] [phone] [facility] [address] URIC ACID (05/11/2020 8:37 AM CDT) Pathologist Sig nature URIC ACID 4.9 2.9 - 6.0 mg/dL [facility] Specimen Blood - ARM, RIGHT Performing Organization Address City/[facility] Phone Number [facility] CLIA: [id number], [address] [place] [address] [facility] [address] CREATINE KINASE (05/11/2020 8:37 AM CDT) Pathologist Sig nature CK 45 33 - 194 U/L [facility] Specimen Blood - ARM, RIGHT Performing Organization Address City/[facility] Phone Number [facility] CLIA: [id number], [address] [place] [address] [phone] [facility] HEAVY METALS PANEL, BLOOD (05/11/2020 8:37 AM CDT) [facility] Sig nature ARSENIC <10.0 0.0 - 12.0 ug/L [facility] Comment: INTERPRETIVE INFORMATION: Arsenic, Blood Elevated results may be due to skin or collection-rela shaka contamination, including the use of a noncertified met al-free collection/transport tube. If contamination concerns e xist due to elevated levels of blood arsenic, confirmation with a second specimen collected in a certified metal-free tube is r ecommended. Potentially toxic ranges for blood arsenic: Greater th an or equal to 600 ug/L. Blood arsenic is for the detection of recent exposure poisoning only. Blood arsenic levels in healthy subjects vary co nsiderably with exposure to arsenic in the diet and the environme nt. A 24-hour urine arsenic is useful for the detection of c hronic exposure. Test developed and characteristics determined by [facility]. See Compliance Statement B: TVDeck.Setup/ CS LEAD <2.0 0.0 - 4.9 ug/dL [facility] Comment: INTERPRETIVE INFORMATION: Lead, Blood (Venous) Elevated results may be due to skin or collection-rela shaka contamination, including the use of a noncertified pastor d-free tube. If contamination concerns exist due to elevated levels of blood lead, confirmation with a second specimen collected in a certified lead-free tube is recommended. Information sources for reference intervals and interp retive comments include the "CDC Response to the 2012 Advisor y Committee on Childhood Lead Poisoning Prevention Report" and the "Recommendations for Medical Management of Adult Lead Exposure, Environmental Health Perspectives, 2007." Thresholds a nd time intervals for retesting, medical evaluation, and respo nse vary by state and regulatory body. Contact your State [facility] and/or applicable regulatory agency for specific nora nce on medical management recommendations. Age Concentration Comment All ages 5-9.9 ug/dL Adverse health eff ects are possible , particularly in children under 6 years of age and women. Discuss health risks associat ed with continued lead exp osure. For children and wome n who are or may become p regnant, reduce lead exposure. All ages 10-19.9 ug/dL Reduced lead expos ure and increase d biological monitori ng are recommended. All ages 20-69.9 ug/dL Removal from lead exposure and prom pt medical evaluati on are recommended. Consider chelation therapy when con centrations exceed 50 ug/dL and symptoms of lead tox icity are present. Less than 19 Greater than Critical. Immediate medical years of age 44.9 ug/dL evaluation is recom mended. Consider chelation therapy when sym ptoms of lead toxicity are present. Greater than 19 Greater than Critical. Immediate m edical years of age 69.9 ug/dL evaluation is recom mended Consider chelation therapy when sym ptoms of lead toxicity are present. Test developed and characteristics determined by [facility]. See Compliance Statement B: L2C/ CS HG(BLOOD) <2.5 0.0 - 10.0 ug/L [facility] Comment: INTERPRETIVE INFORMATION: Mercury, Blood Elevated results may be due to skin or collection-rela shaka contamination, including the use of a noncertified met al-free collection/transport tube. If contamination concerns e xist due to elevated levels of blood mercury, confirmation with a second specimen collected in a certified metal-free tube is r ecommended. Blood mercury levels predominantly reflect recent expo sure and are most useful in the diagnosis of acute poisoning as blo od mercury concentrations rise sharply and fall quickly over nisreen ral days after ingestion. Blood concentrations in unexposed ind ividuals rarely exceed 20 ug/L. The provided reference interval relates to inorganic mercury concentrations. Dietary and non-occu pational exposure to organic mercury forms may contribute to an elevated total mercury result. Clinical presentation after toxi c exposure to organic mercury may include dysarthria, ataxia and constricted vision victor with mercury blood concentrations from 2 0 to 50 ug/L. Test developed and characteristics determined by [facility]. See Compliance Statement B: TVDeck.Setup/ CS Performed by [facility], [address] [place], [place] [id number] [email or web address], Davin Weaver MD, Lab. Director Specimen Blood - ARM, RIGHT Performing Organization Address City/State/Zipcode Phone Number [facility] [address] [place] [address] ADRENOCORTICOTROPIC HORMONE (05/11/2020 8:37 AM CDT) ACTH 8.8 7.2 - 63.3 [facility] Comment: pg/mL INTERPRETIVE INFORMATION: Adrenocorticotropic Hormone Reference interval based on samples collected between 7 a.m. and 10 a.m. No reference intervals established for p.m. collections. Pediatric reference values are the same as adults (Act a Paediatr Scand 1981;70:341-345). This assay measures intact A CTH 1-39; some types of synthetic ACTH and ACTH fragments are no t detected by this assay. Performed by [facility], [address] [place] [address] [email or web address], Davin Weaver MD, Lab. Director Specimen Blood - ARM, RIGHT Performing Organization Address [facility] Phone Number [facility] [address] [place] [address] FREE T3 (05/01/2020 9:23 AM CDT) Pathologist [facility] FREE T3 3.76 2.77 - 5.27 pg/mL [facility] Specimen Blood Performing Organization Address [facility] Phone Number [facility] CLIA: [id number], [address] [place], [place] [address] THYROGLOBULIN AB (05/01/2020 9:23 AM CDT) Pathologist [facility] Thyroglobulin Ab IgG 0.1 0.0 - 0.6 U [facility] Specimen Blood Narrative Performed At Negative: <0.6 [facility] . Moderate Positive: 0.6-1.0 Strong Positive: >1.0 A positive result indicates the presence of thyroglobulin antibodies and suggests the possibility of Jane's thyroiditis. A negative result indicates no thyroglobulin antibody or levels below t he negative cut-off of the assay. Note: The presence of anti-thyroglobulin autoantibodies can be used in conjunction with clinical findings and other laboratory tests to aid in the diagnosis of Jane's thyroiditis. The presence of immune complexes or other immunoglobulin aggregates in the patient sample may cause an increased level of nonspecific binding and produce false positives in this assay. Not all Jane's thyroiditis patients are positive for thyroglobulin. Performing Organization Address [facility] Phone Number [facility] [address] [place] [phone] [facility] [address] [employer] [address] THYROID PEROXIDASE (TPO) AB (05/01/2020 9:23 AM CDT) Pathologist [facility] TPO Ab IgG 9.3 0.0 - 100.0 WHO ANTIPHOSPHOLIPID Units [facility] Specimen Blood Narrative Performed At Interpretation: [facility]PHOLIP[facility] . Negative: <= 100 WHO Units Positive: > 100 WHO Units A positive result indicates the presence of TPO antibodies and suggests the possibility of Jane's thyroiditis and/or Graves' disease. A negative result indicates no TPO antibodies or levels below the negative cut-off of the assay. The presence of antibodies to TPO can be used in conjunction with clinical findings and other laboratory tests to aid in the diagnosis of autoimmune thyroid diseases such as Jane's thyroiditis and Graves' disease. Performing Organization Address City/[facility]/Zipcode Phone Number [facility] [address] [place] [phone] [facility] [address] [employer] [address] ANTI-NUCLEAR ANTIBODY SCREEN (05/01/2020 9:23 AM CDT) Pathologist [facility] AGUSTIN Negative Negative [facility] Specimen Blood Narrative Performed At Negative - No Anti-Nuclear Antibodies de tected by IFA. [facility] Positive - AGUSTIN IFA screen performed with a 1:80 diluti on in adults and a 1:40 dilution in pediatrics. Any AGUSTIN "Pos itive" will have titer performed and reported separately. Performing Organization Address [facility] Phone Number [facility] CLIA: [id number], [address] [place] [address] [address] [facility] DEHYDROEPIANDROSTERONE SULFATE (05/01/2020 9:23 AM CDT) [facility] DHEA-S 236.7 ng/mL [facility] Specimen Blood Narrative Performed At Normal Ranges for DHEA SO4 [facility] Prepubertal: 50-995 ng/mL Adult: 650-3400 ng/mL Adult levels may decrease with age after age 50. Decreased level may be seen in term preg nancies. Pubertal is based on physical examination. Performing Organization Address City/[facility] Phone Number [facility] CLIA: [id number], [address] [place] [address] [address] [facility] LUTEINIZING HORMONE SERUM (05/01/2020 9:23 AM CDT) Pathologist Sig nature LH 30.36 mIU/mL [facility] Specimen Blood Narrative Performed At LH Reference Ranges: [facility] Menstrating Female Follicular phase 2.1-10.9 m IU/mL Mid-cycle peak 19.1-103. 0 mIU/mL Luteal phase 1.2-12.8 mIU/mL Post-menopausal female 10.8-58.6 mI U/mL Adule Male 1.2-8. 6 mIU/mL Performing Organization Address City/[facility] Phone Number [facility] CLIA: [id number], [address] [place] [address] [address] [facility] FOLLICLE STIMULATING HORMONE (05/01/2020 9:23 AM CDT) Pathologist Sig [facility] FSH 46.01 mIU/mL [facility] Specimen Blood Narrative Performed At FSH Reference Ranges [facility] Follicular Phase: 3.8-8.8 mIU/m L Mid-cycle Peak: 4.5-22.85 mI U/mL Luteal Phase: 1.7-5.1 mIU /mL Post-menopause female: 16.7-113.6 mIU/ mL Adult male: 1.2-19 mIU/mL Performing Organization Address [facility] Phone Number [facility] CLIA: [id number], [address] [place] [address] [address] [facility] TESTOSTERONE (05/01/2020 9:23 AM CDT) Pathologist [facility] TESTOST 10.9 6.0 - 77.0 ng/dL [facility] Specimen Blood Narrative Performed At Normal Ranges [facility] Adult Female: 6-77 ng/d L Adult Male <50 years: 132-813 ng/dL Adult Male >50 years: 72-623 ng/dL Females on Control Pills may have higher results. Obese patients may have lower results. Biotin has been reported to cause a negative bias, int erpret results relative to patient's use of biotin. Performing Organization Address City/[facility] Phone Number [facility] CLIA: [id number], [address] [place] [address] [address] [facility] THYROID STIMULATING HORMONE (05/01/2020 9:23 AM CDT) Pathologist Sig nature TSH 2.49 0.45 - 4.70 mIU/L [facility] Specimen Blood Performing Organization Address [facility] Phone Number [facility] CLIA: [id number], [address] [place], [place] [address] FREE T4 (05/01/2020 9:23 AM CDT) Pathologist Sig nature FREE T4 1.13 0.78 - 2.20 ng/dL [facility] Specimen Blood Performing Organization Address [facility] Phone Number [facility] CLIA: [id number], [address] [place] [address] PROLACTIN (05/01/2020 9:23 AM CDT) Pathologist Sig nature PROLACTIN 6.9 3.3 - 26.7 ng/mL [facility] Specimen Blood Performing Organization Address [facility] Phone Number [facility] CLIA: [id number], [address] [place] [address] [address] [facility] CORTISOL AM (05/01/2020 9:23 AM CDT) Pathologist Sig nature MONIQUE AM 3.5 (L) 4.5 - 23.0 ug/dL [facility] Specimen Blood Narrative Performed At Biotin has been reported to cause a positive bias, int erpret [facility] results relative to patient's use of biotin. Performing Organization Address [facility] Phone Number [facility] CLIA: [id number], [address] [place] [address] [address] [facility] URINE CULTURE (05/01/2020 9:14 AM CDT) URINE CULTURE 10,000 - 100,000 [facility] CFU/mL mixed aerobic SERVICES organisms - suggests endogenous microbial contamination Specimen Urine - URINE, CLEAN CATCH Performing Organization Address [facility] Phone Number [facility] CLIA: [id number], [address] [place] [address] [address] [facility] URINALYSIS (05/01/2020 9:14 AM CDT)Only the most recent of2 resultswithin the time period is included. Pathologist Sig nature APPEARANCE Clear Clear [facility] COLOR Yellow Yellow [facility] PH 6.0 4.8 - 8.0 [facility] SP GRAVITY 1.006 1.003 - 1.030 [facility] GLU U QUAL Normal Normal [facility] BLOOD Negative Negative [facility] KETONES Negative Negative [facility] PROTEIN Negative Negative [facility] UROBILIN Normal Normal [facility] BILIRUBIN Negative Negative [facility] NITRITE Negative Negative [facility] LEUK ALFREDO Negative Negative [facility] RBC/HPF 1 0 - 3 HPF [facility] WBC/HPF 2 0 - 5 HPF [facility] BACTERIA Few (A) Negative [facility] SQ EPITH 2 HPF [facility] Specimen Urine - URINE, CLEAN CATCH Performing Organization Address City/State/Zipcode Phone Number [facility] CLIA: [id number], [address] [place], [place] [address] AGREEMENTS AUTHORIZATIONS AND IRREVOCABLE ASSIGNMENTS (FORM 2000) (05/01/2020 12:01 AM CDT) Specimen Performing Organization Address City/[facility]/Zipcode Phone Number [facility] XR CERVICAL SPINE 3 VW (04/19/2020 12:21 PM CDT) Specimen Impressions Performed At PACS/VR/DOSE No acute cervical fracture or subluxatio n identified. Preliminary Report Dictated by Resident: Constanza Brady MD., have reviewe d this study and agree with the above report. Narrative Performed At XR CERVICAL SPINE 3 VW PACS/VR/DOSE HISTORY: hyperextension injury COMPARISON: None TECHNIQUE: Frontal and lateral radiograp hs of the cervical spine were performed. FINDINGS: Frontal and lateral radiographs of the c ervical spine were obtained. The alignment of the cervical spine is satisfactory. The v ertebral bodies are normal in height and normal alignment. N o acute facet fracture or subluxation seen. The craniocervical junction is intac t. Evaluation of the atlantoaxial joint is suboptimal on the lateral and open-mouth frontal radiographs due to overlapping structure s. The intervertebral disc spaces are relat ively preserved. Mild multilevel degenerative changes are seen in the for m of endplate sclerosis and marginal osteophytosis. Mild facet and u ncovertebral arthropathy is also noted in the mid cervical spine. The prevertebral soft tissues are unrema rkable. Procedure Note [facility], Radiant Results Inft User - 2019 12:55 PM CDT XR CERVICAL SPINE 3 VW HISTORY: hyperextension injury COMPARISON: None TECHNIQUE: Frontal and lateral radiograp hs of the cervical spine were performed. FINDINGS: Frontal and lateral radiographs of the c ervical spine were obtained. The alignment of the cervical spine is satis factory. The vertebral bodies are normal in height and normal alignment. N o acute facet fracture or subluxation seen. The craniocervical marixa ction is intact. Evaluation of the atlantoaxial joint is suboptimal on the lateral and open-mouth frontal radiographs due to overlapping structure s. The intervertebral disc spaces are relat ively preserved. Mild multilevel degenerative changes are seen in the for m of endplate sclerosis and marginal osteophytosis. Mild facet and u ncovertebral arthropathy is also noted in the mid cervical spine. The prevertebral soft tissues are unrema rkable. IMPRESSION No acute cervical fracture or subluxatio n identified. Preliminary Report Dictated by Resident: Constanza Brady MD., have reviewed this study and agree with the above report. Performing Organization Address City[facility]State[facility] Phone Number PACS/VR/DOSE CT ORBITS WO CONTRAST (04/19/2020 12:13 PM CDT) Specimen Impressions Performed At PACS/VR/DOSE Mild soft tissue swelling overlying the left zygoma. No acute orbital fracture. No acute intracranial abnormality. Preliminary Report Dictated by Resident: Constanza Brady MD., have reviewe d this study and agree with the above report. Narrative Performed At CT HEAD WO CONTRAST, CT ORBITS WO CONTRA ST PACS/VR/DOSE HISTORY: Stroke suspected, ataxia . faci al injury, ataxia. COMPARISON: Head CT 03/23/2019. TECHNIQUE: Noncontrast CT of the brain and orbits was obtained with coronal and sagittal reconstructions. CT HEAD FINDINGS: The ventricles and cerebral sulci are normal in calibe r and configuration. No hydrocephalus, midline shift or patho logical extra-axial fluid collection is present. The basal cistern s are unremarkable. There is no acute intraparenchymal hemorrhage or signi ficant mass effect. No parenchymal attenuation abnormality. The perez-white matter differentiation is preserved. Vascular calcifications in the carotid s iphons and intradural vertebral arteries. The calvarium and central skull base are unremarkable. CT ORBITS FINDINGS: The eye globes are symmetric. No radiopaque densities are visualized within the globes to suggest hemorrhage or a fo reign object. The extraocular muscles are intact. The ophthalmic veins show a normal course. The lacrimal glands are normal. No inflammatory strand ing in the intra or extraconal tissues. No acute orbital fractures. The visualized paranasal sinuses are sabrina ar. Mild soft tissue swelling overlying the left zygoma. Mild temporomandibular joint degeneratio n. Procedure Note [facility], Radiant Results Inft User - 2019 12:[address] HEAD WO CONTRAST, CT ORBITS WO CONTRAST HISTORY: Stroke suspected, ataxia . faci al injury, ataxia. COMPARISON: Head CT 03/23/2019. TECHNIQUE: Noncontrast CT of the brain a nd orbits was obtained with coronal and sagittal reconstructions. CT HEAD FINDINGS: The ventricles and cerebral sulci are no rmal in caliber and configuration. No hydrocephalus, midline shift or patho logical extra-axial fluid collection is present. The basal cistern s are unremarkable. There is no acute intraparenchymal hemor rhage or significant mass effect. No parenchymal attenuation abnormality. The perez-white matter differentiation is preserved. Vascular calcifications in the carotid s iphons and intradural vertebral arteries. The calvarium and central skull base are unremarkable. CT ORBITS FINDINGS: The eye globes are symmetric. No radiopa que densities are visualized within the globes to suggest hemorrhage or a fo reign object. The extraocular muscles are intact. The ophthalmic veins show a normal course. The lacrimal glands are normal. No infla mmatory stranding in the intra or extraconal tissues. No acute orbital fractures. The visualized paranasal sinuses are sabrina ar. Mild soft tissue swelling overlying the left zygoma. Mild temporomandibular joint degeneratio n. IMPRESSION Mild soft tissue swelling overlying the left zygoma. No acute orbital fracture. No acute intracranial abnormality. Preliminary Report Dictated by Resident: Constanza Brady MD., have reviewed this study and agree with the above report. Performing Organization Address City/State/Zipcode Phone Number PACS/VR/DOSE CT HEAD WO CONTRAST (04/19/2020 12:13 PM CDT) Specimen Impressions Performed At PACS/VR/DOSE Mild soft tissue swelling overlying the left zygoma. No acute orbital fracture. No acute intracranial abnormality. Preliminary Report Dictated by Resident: Constanza Brady MD., have reviewe d this study and agree with the above report. Narrative Performed At CT HEAD WO CONTRAST, CT ORBITS WO CONTRA ST PACS/VR/DOSE HISTORY: Stroke suspected, ataxia . faci al injury, ataxia. COMPARISON: Head CT 03/23/2019. TECHNIQUE: Noncontrast CT of the brain and orbits was obtained with coronal and sagittal reconstructions. CT HEAD FINDINGS: The ventricles and cerebral sulci are normal in calibe r and configuration. No hydrocephalus, midline shift or patho logical extra-axial fluid collection is present. The basal cistern s are unremarkable. There is no acute intraparenchymal hemorrhage or signi ficant mass effect. No parenchymal attenuation abnormality. The perez-white matter differentiation is preserved. Vascular calcifications in the carotid s iphons and intradural vertebral arteries. The calvarium and central skull base are unremarkable. CT ORBITS FINDINGS: The eye globes are symmetric. No radiopaque densities are visualized within the globes to suggest hemorrhage or a fo reign object. The extraocular muscles are intact. The ophthalmic veins show a normal course. The lacrimal glands are normal. No inflammatory strand ing in the intra or extraconal tissues. No acute orbital fractures. The visualized paranasal sinuses are sabrina ar. Mild soft tissue swelling overlying the left zygoma. Mild temporomandibular joint degeneratio n. Procedure Note [facility], Radiant Results Inft User - 2019 12:[address] HEAD WO CONTRAST, CT ORBITS WO CONTRAST HISTORY: Stroke suspected, ataxia . faci al injury, ataxia. COMPARISON: Head CT 03/23/2019. TECHNIQUE: Noncontrast CT of the brain a nd orbits was obtained with coronal and sagittal reconstructions. CT HEAD FINDINGS: The ventricles and cerebral sulci are no rmal in caliber and configuration. No hydrocephalus, midline shift or patho logical extra-axial fluid collection is present. The basal cistern s are unremarkable. There is no acute intraparenchymal hemor rhage or significant mass effect. No parenchymal attenuation abnormality. The perez-white matter differentiation is preserved. Vascular calcifications in the carotid s iphons and intradural vertebral arteries. The calvarium and central skull base are unremarkable. CT ORBITS FINDINGS: The eye globes are symmetric. No radiopa que densities are visualized within the globes to suggest hemorrhage or a fo reign object. The extraocular muscles are intact. The ophthalmic veins show a normal course. The lacrimal glands are normal. No infla mmatory stranding in the intra or extraconal tissues. No acute orbital fractures. The visualized paranasal sinuses are sabrina ar. Mild soft tissue swelling overlying the left zygoma. Mild temporomandibular joint degeneratio n. IMPRESSION Mild soft tissue swelling overlying the left zygoma. No acute orbital fracture. No acute intracranial abnormality. Preliminary Report Dictated by Resident: Constanza Brady MD., have reviewed this study and agree with the above report. Performing Organization Address City/State/Zipcode Phone Number PACS/VR/DOSE POCT TEST (04/19/2020 11:44 AM CDT) Pathologist Sig nature POCT PREG Negative On board controls acceptable Yes with C Line POCT PREG LOT # [id number] POCT PREG TEST DATE 06/30/2021 Specimen Urine - URINE, CLEAN CATCH NOTICE OF PRIVACY PRACTICES (04/19/2020 10:50 AM CDT) Specimen Performing Organization Address [facility]/[employer] Phone Number [facility] CONSENT/REFUSAL FOR DIAGNOSIS AND TREATMENT (04/19/2020 10:50 AM CDT) Specimen Performing Organization Address City/State/Zipcode Phone Number [facility] ASSIGNMENT OF BENEFITS (04/19/2020 10:50 AM CDT) Specimen Performing Organization Address City/State/[employer] Phone Number [facility] EMERGENCY SERVICES AGREEMENTS AND AUTHORIZATIONS (04/19/2020 12:01 AM CDT) Specimen Performing Organization Address City/State/[employer] Phone Number [facility] HOME HEALTH - OTHER (04/04/2020 12:01 AM CDT) Specimen Performing Organization Address City/[employer]/Zipcode Phone Number HIM from Last 3 Months Insurance Payer Benefit Plan Subscriber ID Effective Phone Address Typ e / Group Dates [employer]ET[employer] - AET[employer] [id number] 2019-Jose TURNER Me dicare Adv MANAGED MEDICARE ADV nt [id number] [place] [address]
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
--- OUTSIDE RECORDS SUMMARY | 2020-07-21 07:30 | XMS REPORT | Summary of Care ---
:1975 Author Organization [facility] Address [address] [place] [address] Care Team Providers Name Role Phone Kaye Gupta MD Primary Care Provider Reason for Visit Reason Comments Refill Request Encounter Details Date Type Department Care Team Description 07/02/[address] [facility] Cardiology- Se anthony Horn, Refill Request [facility] [address] [facility] [address] [place] [phone] [place] [address] [place] [address] Allergies Active Allergy Reactions Severity [...] as of this encounter (statuses as of 07/03/2020) Medications Medication Sig Dispensed Refills Start Date [...] 2 Coronary artery (two) days. disease involving [place] coronary artery of [place] heart without angina pectoris, Essential hypertension, Dyslipidemia, [...] 40 mg EC 0 09/02/2019 Active tablet M[place]EL[place] 10 mg TAKE 1 TABLET BY 30 tablet 11 11/26/2019 Active tabletIndications: MOUTH EVERY Allergic rhinitis, EVENING unspecified seasonality, unspecified trigger magnesium gluconate Take 27 mg by 0 Active 27 mg [place] MAGNESIUM mouth 3 (three) (MAG-G) tablet times [...] tabletIndications: mouth daily. Coronary artery disease involving [place] coronary artery of [place] heart with angina pectoris, Essential hypertension diltiazem 120 mg 24 TK 1 C PO QPM 0 01/02/2020 Active hr capsule nitroglycerin Place 1 tablet 1 Bottle 3 02/22/2020 Active (NITROSTAT) 0.4 mg under the tongue sublingual every 5 (five) tabletIndications: minutes as needed Coronary artery for Chest pain. disease involving [place] coronary artery of [place] heart with angina pectoris TOPIRAMATE 50 mg TAKE 3 TABLETS BY 540 tablet 3 03/30/2020 Active tabletIndications: MOUTH TWICE DAILY Migraine without aura and without status migrainosus, not intractable PRIMIDONE 50 mg TAKE 1 TABLET BY 180 tablet 3 03/30/2020 Active tabletIndications: MOUTH TWICE DAILY Migraine without aura and without status migrainosus, not intractable Additional Information Patient taking differently: 50 mg Oral DAILY, Reported on 06/01/2020 9:38 AM proMETHazine 25 mg Take 1 tablet by 90 tablet 6 05/09/2020 Active tabletIndications: mouth every 4 Migraine without aura and (four) hours as without status needed (N/V or migrainosus, not migraine intractable, Intractable headache). acute post-traumatic headache isosorbide mononitrate Take 1 tablet by 90 tablet 0 05/15/2020 Active 120 mg 24 hr mouth every tabletIndications: Morbid morning. 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 Yeast infection RANOLAZINE 1,000 mg TAKE 1 TABLET BY 180 tablet 1 05/26/2020 Active tablet MOUTH TWICE DAILY Fluticasone-Salmeterol Inhale 1 Puff 60 Each 11 06/29/2020 Active (ADVAIR DISKUS) 500-50 every 12 mcg/dose inhalation (twelve) hours. diskIndications: Moderate persistent asthma without complication busPIRone 5 mg Take 4 tablets 360 tablet 3 06/30/2020 Active tabletIndications: by mouth three Generalized anxiety times per day disorder CLOPIDOGREL 75 mg tablet TAKE 1 TABLET BY 90 tablet 2 07/03/20 20 Active MOUTH EVERY DAY CLOPIDOGREL 75 mg tablet TAKE 1 TABLET BY 90 tablet 2 11/26/20 19 07/03/ MOUTH DAILY 2019 documented as of this encounter (statuses as of 07/03/2020) Active Problems Problem Noted Date Euthyroid goiter [...] as of this encounter (statuses as of 07/03/2020) Resolved Problems Problem Noted Date Resolved Date Nicotine use disorder 02/08/2019 04/20/2019 Overview: vaping Postprandial vomiting 01/04/2017 01/19/2018 documented as of this encounter (statuses as of 07/03/2020) Immunizations Name Administration Dates Next Due Influenza [...] Assigned at Date Recorded Not on file COVID-19 Exposure Response Date Recorded In the last month, have you been in contact with No / Unsure 06/30/2020 1:17 PM CDT someone who was confirmed or suspected to have Coronavirus / COVID-19? documented as of this encounter Last Filed Vital Signs Not on filedocumented in this encounter Plan of Treatment Date Type Specialty Care Team Description 07/05/2020 Office Visit Urology Nanda Lutz, MISBAH [address] [facility] [address] [place], [place] [address] [phone] 07/06/2020 Office Visit Neurology Anum Connor A NP [address] [place] [address] [phone] 10/06/2020 Office Visit Cardiology Justo Bolton MD [address] [facility] [facility] [address] [place], [place] [phone] 10/20/2020 Office Visit Psychiatry Janusz Koch MD [address] [place] [address]. [place] [address] [phone] 01/11/2021 Office Visit Pulmonary Disease Nino Bennett, [address] [place] [phone] Health Maintenance Due Date Last Done [...] e / Group Dates AETNA - AETNA [id number] 2019-Prese P O BOX Me dicare Adv MANAGED MEDICARE ADV nt [id number] [place] [address] documented as of this encounter
--- OUTSIDE RECORDS SUMMARY | 2020-07-21 07:31 | XMS REPORT | Summary of Care ---
:1975 Author Organization [facility] [employer] Address [address] [place] [address] Care Team Providers Name Role Phone Kaye Gupta MD Primary Care Provider Reason for Visit Reason Comments Kidney Stones (Routine) Status Reason Specialty Diagnoses / Procedures Referred By Shirin brady Referred To Contact Closed Urology Diagnoses Left nephrolithiasis Left flank pain Marlee Gupta, Procedures CONSULT/REFERRAL UROLOGY [address] [place] [phone] Phone: Encounter Details Date Type Department Care Team Description 07/05/2020 Office Visit [facility] Urology- Nanda Lutz Lef t nephrolithiasis (Primary Dx); [place] [employer] Urinary incontinence, unspecified type [address] [place] [address] [place] [address] [phone] Allergies Active Allergy Reactions Severity Noted Date [...] as of this encounter (statuses as of 07/05/2020) Medications Medication Sig Dispensed Refills Start Date [...] 2 Coronary artery (two) days. disease involving [place] coronary artery of [place] heart without angina pectoris, Essential hypertension, Dyslipidemia, [...] 27 mg by 0 Active 27 mg [place] MAGNESIUM mouth 3 (three) (MAG-G) tablet [...] tabletIndications: mouth daily. Coronary artery disease involving [place] coronary artery of [place] heart with angina pectoris, Essential hypertension diltiazem 120 mg 24 TK 1 C PO QPM 0 01/02/2020 Active hr capsule nitroglycerin Place 1 tablet 1 Bottle 3 02/22/2020 Active (NITROSTAT) 0.4 mg under the tongue sublingual every 5 (five) tabletIndications: minutes as needed Coronary artery for Chest pain. disease involving [place] coronary artery of [place] heart with angina pectoris TOPIRAMATE 50 mg [...] by 90 tablet 6 05/09/2020 Active tabletIndications: Migraine mouth every 4 (four) without aura and without hours as needed (N/V status migrainosus, not or migraine intractable, Intractable acute headache). post-traumatic headache isosorbide mononitrate 120 mg Take 1 tablet by 90 tablet 0 Active 24 hr tabletIndications: mouth every morning. Morbid obesity with body mass index of 40.0-49.9, Coronary artery disease involving autologous artery coronary bypass graft without angina pectoris nystatin 100,000 unit/gram Apply to area(s) 2 30 g 1 Active ointmentIndications: Yeast (two) times daily. infection RANOLAZINE 1,000 mg tablet TAKE 1 TABLET BY 180 tablet 1 05/26 Active MOUTH TWICE DAILY Fluticasone-Salmeterol (ADVAIR Inhale 1 Puff every 60 Each 11 06/29/2020 Active DISKUS) 500-50 mcg/dose 12 (twelve) hours. inhalation diskIndications: Moderate persistent asthma without complication busPIRone 5 mg Take 4 tablets by 360 tablet 3 06/30/2020 Active tabletIndications: Generalized mouth three times per anxiety disorder day CLOPIDOGREL 75 mg tablet TAKE 1 TABLET BY 90 tablet 2 07/03/20 20 Active MOUTH EVERY DAY documented as of this encounter (statuses as of 07/05/2020) Active Problems Problem Noted Date Euthyroid goiter [...] as of this encounter (statuses as of 07/05/2020) Resolved Problems Problem Noted Date Resolved Date Nicotine use disorder 02/08/2019 04/20/2019 Overview: vaping Postprandial vomiting 01/04/2017 01/19/2018 documented as of this encounter (statuses as of 07/05/2020) Immunizations Name Administration Dates Next Due Influenza [...] Sign Reading Time Taken Comments Blood Pressure 121/82 07/05/2020 10:18 AM CDT Pulse 80 07/05/2020 10:18 AM CDT Temperature 36.8 C (98.3 F) 07/05/2020 10:18 AM CDT Respiratory Rate - - Oxygen Saturation - - Inhaled Oxygen Concentration - - Weight - - Height - - Body Mass Index - - documented in this encounter Progress Notes Nanda Lutz FNP - 07/05/2020 10:00 AM CDT Visit Type: Clinic Note / History and Physical Referred by: established Chief Complaint: kidney stone HPI Yulissa Gutierreztock 45 year old female for evaluation of incidental finding of left kidney stone. CT was done for [place]'s disease. She does not have a history of stones but her father, daughter and sister have a history of kidney stones. She has a remote history of UTIs, none recently. She bloodhad blood in her urine years ago, but none recently and has not been worked up. She had a sling placed 29 years ago and is having leaking and wears 3-4 pads/day. Denies frequency, urgency or burning. Histories Past Medical History: Diagnosis Date Allergic rhinitis Amenorrhea 02/08/2019 Anemia Asthma As a child CAD (coronary artery disease) Depression Endometriosis Euthyroid goiter 06/26/2020 GERD (gastroesophageal reflux disease) HTN (hypertension) Hyperlipidemia Infection of skin due to methicillin resistant Staphylococcus aureus (MRSA) 01/04/2018 Left nephrolithiasis 06/01/2020 Leiomyoma of uterus [place] (mitral incompetence) 2014 JOSE (obstructive sleep apnea) Panic disorder Pap smear abnormality of cervix 1999 s/p LEEP PCOS (polycystic ovarian syndrome) POTS (postural orthostatic tachycardia syndrome) 12/04/2017 Prediabetes 01/23/2018 Prinzmetal angina Seizures Spinal stenosis Urinary incontinence stress incont only Past Surgical History: Procedure Laterality Date ABDOMINAL SCAR REVISION 1997 repair and tummy tuck SECTION [id number] COLONOSCOPY 10/25/2019 COLPOSCOPY,CERVIX W/ADJ VAG,W/LOOP BX CONIZATION [...] MD; Location: [facility] [place] PATIENT HAS A CORONARY ARTERY STENT 2015 [...] Psychiatry NoFHx Other - see comments NoFHx Social History Socioeconomic History Marital status: Spouse name: Gene Number of children: 1 Years of education: 16 Highest education level: Not on file Occupational History 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 Social Needs Financial resource strain: Not on file Food insecurity Worry: Not on file Inability: Not on file Transportation needs Medical: Not on file Non-medical: Not on file Tobacco Use Smoking status: Former Smoker Packs/day: 0.50 Years: 15.00 Pack years: 7.50 Types: Cigarettes Quit date: 01/2017 Years since quittin.5 Smokeless tobacco: Never Used Tobacco comment: quit tobacco in 03/2018, quit vaping too 03/2019 Substance and Sexual Activity Alcohol use: No Alcohol/week: 0.0 standard drinks Drug use: No Sexual activity: Yes Partners: Male control/protection: None Comment: last intercourse in january 2019 Lifestyle Physical activity Days per week: Not on file Minutes per session: Not on file Stress: Not on file Relationships Social connections Talks on phone: Not on file Gets together: Not on file Attends synagogue service: Not on file Active member of club or organization: Not on file Attends meetings of clubs or organizations: Not on file Relationship status: Not on file Intimate partner violence Fear of current or ex partner: Not [...] Social History Narrative Lives at home with Congregational Preference: Restoration Review of Systems Constitutional: Positive for appetite change and fatigue. HENT: Positive for congestion, hearing loss, tinnitus and trouble swallowing. Eyes: Positive for photophobia, pain and visual disturbance. Respiratory: Positive for apnea. Breasts: Positive for pain. Cardiovascular: Positive for leg swelling. Gastrointestinal: Positive for abdominal distention. Genitourinary: Positive for bladder incontinence. Musculoskeletal: Positive for arthralgias, back pain, gait problem, joint swelling and myalgias. Skin: Positive for rash. Neurological: Positive for dizziness, tremors, weakness, light-headedness, numbness and headaches. Psychiatric/Behavioral: Negative. Hematological: Bruises/bleeds easily. Physical Exam Constitutional: Appearance: Normal appearance. She is obese. Genitourinary: Comments: Bilateral CVAT Musculoskeletal: Normal range of motion. Skin: General: Skin is warm and dry. Neurological: General: No focal deficit present. Mental Status: She is alert and oriented to person, place, and time. Mental status is at baseline. Psychiatric: Mood and Affect: Mood normal. Behavior: Behavior normal. Thought Content: Thought content normal. Judgment: Judgment normal. BP 121/82 (BP Location: Right arm, Patient Position: Sitting, BP CUFF SIZE: Adult Large) | Pulse 80 | Temp 36.8 C (98.3 F) (Temporal Artery) Laboratory Results for YULISSA MAN ( ) as of 07/05/2020 11:35 Ref. Range 07/05/2020 10:24 POCT PH U Latest Ref Range: 5 - 8 mg/dl 5.0 POCT U SP GRAV Latest Ref Range: 1.005 - 1.025 mg/dl 1.025 POCT U GLU Latest Ref Range: Negative - Negative Negative POCT U BLD Latest Ref Range: Negative - Negative Negative POCT U KETONE Latest Ref Range: Negative - Negative Negative POCT U PROT Latest Ref Range: Negative - Negative Negative POCT U UROBILI Latest Ref Range: 0.2 - 1 mg/dl 0.2 POCT U BILI Latest Ref Range: Negative - Negative small POCT U NIT Latest Ref Range: Negative - Negative Negative POCT U LEUK EST Latest Ref Range: Negative - Negative Negative POCT U COLOR Unknown yellow POCT U APPEAR Unknown clear Radiology FINDINGS: The lung bases are clear. No pleural effusion is present. Heart size is normal. Liver is normal in size, shape and appearance. Gallbladder is normal. No calcified gallstones are seen. No bile duct dilation is appreciated. Pancreas is normal. No ductal dilation is seen. Spleen is normal in size. Adrenal glands are normal. No nodularity is noted Kidneys are normal in size and shape. No hydronephrosis is present. There is approximately 4 mm calcification in the inferior pole of the left kidney. Abdominal aorta is normal in size. No free fluid or free air is seen in the abdomen. No enlarged lymph nodes are seen in the retroperitoneum or in the mesentery. Small hiatal hernia is present. There is no evidence of bowel obstruction. Fat stratification of the colon is noted. No evidence of bowel obstruction is seen. The uterus and urinary bladder are grossly normal. There is a complex 5.6 x 5.5 x 6.5 cm mass in the left adnexa. Multiple phleboliths are seen in the pelvis. No enlarged pelvic lymph nodes are appreciated. A left paraumbilical hernia defect is noted with herniation of fat. No suspicious abnormality bones is seen. IMPRESSION 1. No acute intra-abdominal or intrapelvic pathology [...] paraumbilical hernia defect with herniation of fat Procedure Note None Assessment/Plan Yulissa Man 45 year old female with left 4mm kidney stone without hydronephrosis, urinary incontinence s/p sling placement Kidney stone - no treatment needed at this time Refer to Dr. Lindquist RTC in one year or sooner if needed Surgical Intervention Not applicable. This visit did not involve counseling and coordination that comprised more than 50% of the visit time. Nanda Lutz NP-C Amber Dimas RN - 07/05/2020 10:00 AM CDTNemesiograham Man is a 45 year old female comes to clinic independent in ambulation for nephroloithiasis. Pt comes alone . Pt in NAD w/ pain reported 0/10. Pt preferred language is Citizen [place]. Pt. denies fall in last 12 months. Allergies and medications reviewed and updated. documented in this encounter Plan of Treatment Date Type Specialty Care Team Description 07/06/2020 Office Visit Neurology Anum Connor A NP [address] [place] [phone] 07/25/2020 Office Visit Urology Adrián Lindquist M D [address] [facility] [address] [place] [address] [phone] 10/06/2020 Office Visit Cardiology Justo Bolton MD [address] [place] [address] [place] [phone] 10/20/2020 Office Visit Psychiatry Janusz Koch MD [address] [place] [address] [address]vd. [place], [place] [phone] 01/11/2021 Office Visit Pulmonary Disease Aleida Bennettestebanmario, [address] [place] [address] Health Maintenance Due Date Last [...] Problems Progress 5 lb weight General Yes Jerome, loss by next Marlee Restrepo MD visit documented as of this encounter Procedures Procedure Name Priority Date/Time Associated Diagnosis Comme nts POCT URINALYSIS Routine 07/05/2020 10:24 Left nephrolithiasis Results for this AUTO AM CDT procedure are i n the results section. documented in this encounter Results POCT URINALYSIS, INSTRUMENT (07/05/2020 10:24 AM CDT) Pathologist Sig nature POCT U SP GRAV 1.025 1.005 - 1.025 mg/dl POCT PH U 5.0 5 - 8 mg/dl POCT U LEUK EST Negative Negative - Negative POCT U NIT Negative Negative - Negative POCT U PROT Negative Negative - Negative POCT U GLU Negative Negative - Negative POCT U KETONE Negative Negative - Negative POCT U UROBILI 0.2 0.2 - 1 mg/dl POCT U BILI small Negative - Negative POCT U BLD Negative Negative - Negative POCT U COLOR yellow POCT U APPEAR clear Specimen Urine - URINE, CLEAN CATCH documented in this encounter Visit Diagnoses Diagnosis Left nephrolithiasis - Primary Urinary incontinence, unspecified type documented in this encounter Insurance Payer Benefit Plan Subscriber ID Effective Phone Address Typ e / Group Dates AETNA - AETNA [id number] 2019-Jose [address] Me dicare Adv MANAGED MEDICARE ADV [id number] [place] [address] documented as of this encounter"
--- OUTSIDE RECORDS SUMMARY | 2020-07-21 07:33 | XMS REPORT | Summary of Care ---
:1975 Author Organization [facility] [employer] [facility] Address [address] [place] [address] Care Team Providers Name Role Phone Kaye Gupta MD Primary Care Provider Reason for Visit Reason Comments Results Encounter Details Date Type Department Care Team Description 07/07/[address] [facility] Urology- Shalonda Lutz, BAG ADJUSTER Results [place] [address] [address] [place] [address] [place] [address] [phone] Allergies Active Allergy Reactions Severity Noted Date [...] as of this encounter (statuses as of 07/07/2020) Medications Medication Sig Dispensed Refills Start Date [...] 2 Coronary artery (two) days. disease involving [place]' coronary artery of [place]' heart without angina pectoris, Essential hypertension, Dyslipidemia, [...] 27 mg by 0 Active 27 mg [place] MAGNESIUM mouth 3 (three) (MAG-G) tablet times [...] tabletIndications: mouth daily. Coronary artery disease involving [place]' coronary artery of [place]' heart with angina pectoris, Essential hypertension diltiazem 120 mg 24 TK 1 C PO QPM 0 01/02/2020 Active hr capsule nitroglycerin Place 1 tablet 1 Bottle 3 02/22/2020 Active (NITROSTAT) 0.4 mg under the tongue sublingual every 5 (five) tabletIndications: minutes as needed Coronary artery for Chest pain. disease involving [place]' coronary artery of [place] heart with angina pectoris PRIMIDONE 50 mg TAKE 1 TABLET BY [...] 2 07/03/20 20 Active MOUTH EVERY DAY [id number] Take 1 capsule by 60 capsule 2 0 07/06/2020 Active per capsuleIndications: mouth every 6 (six) Migraine without aura and hours as needed without status migrainosus, (headache). not intractable, Intractable acute post-traumatic headache documented as of this encounter (statuses as of 07/07/2020) Active Problems Problem Noted Date Euthyroid goiter [...] as of this encounter (statuses as of 07/07/2020) Resolved Problems Problem Noted Date Resolved Date Nicotine use disorder 02/08/2019 04/20/2019 Overview: vaping Postprandial vomiting 01/04/2017 01/19/2018 documented as of this encounter (statuses as of 07/07/2020) Immunizations Name Administration Dates Next Due Influenza [...] been in contact with No / Unsure 07/06/2020 1:43 PM CDT someone who was confirmed or suspected to have Coronavirus / COVID-19? documented as of this encounter Last Filed Vital Signs Not on filedocumented in this encounter Miscellaneous Notes Telephone Encounter - Nanda Lutz FNP - 07/07/2020 9:16 AM CDTSpoke with patient - explained she has mass on left adnexa and needs to see CATTLE TESTER. She said she has seen CATTLE TESTER for this and everything is fine. documented in this encounter Plan of Treatment Date Type Specialty Care Team Description 07/25/2020 Office Visit Urology Adrián Lindquist M D [address] [facility] [address] [place] [phone] 10/06/2020 Office Visit Cardiology Justo Bolton MD [address] [place] [phone] 10/09/2020 Office Visit Neurology Anum Connor A NP [address] [place] [address] [phone] 10/20/2020 Office Visit Psychiatry Janusz Koch MD [address] [place] [address]. [place] [phone] 01/11/2021 Office Visit Pulmonary Disease Nino Bennett DO [address] [place] [address] Health Maintenance Due Date Last [...] e / Group Dates AETNA - AETNA [id number] 2019-Jose Heart dicare Adv MANAGED MEDICARE ADV nt [id number] [place] [address] documented as of this encounter
--- OUTSIDE RECORDS SUMMARY | 2020-07-21 07:33 | XMS REPORT | Summary of Care ---
:1975 Author Organization [facility] [employer] Address [address] [place] [address] Care Team Providers Name Role Phone Kaye Gupta MD Primary Care Provider Reason for Visit Reason Comments Kidney Stones (Routine) Status Reason Specialty Diagnoses / Procedures Referred By Shirin brady Referred To Contact Closed Urology Diagnoses Left nephrolithiasis Left flank pain Marlee Gupta, Procedures CONSULT/REFERRAL UROLOGY [address] [place] [phone] Phone: Encounter Details Date Type Department Care Team Description 07/05/2020 Office Visit [facility] Urology- Nanda Lutz [place]ef [place] nephrolithiasis (Primary Dx); [place] ANESTHESIOLOGIST ATTENDING Urinary incontinence, unspecified type [address] [place] [address] [phone] Allergies Active Allergy Reactions Severity Noted Date [...] 2 Coronary artery (two) days. disease involving [place] coronary artery of [place] heart without angina pectoris, Essential hypertension, Dyslipidemia, [...] 27 mg by 0 Active 27 mg [place] MAGNESIUM mouth 3 (three) (MAG-G) tablet times [...] tabletIndications: mouth daily. Coronary artery disease involving [place] coronary artery of [place] heart with angina pectoris, Essential hypertension diltiazem 120 mg 24 TK 1 C PO QPM 0 01/02/2020 Active hr capsule nitroglycerin Place 1 tablet 1 Bottle 3 02/22/2020 Active (NITROSTAT) 0.4 mg under the tongue sublingual every 5 (five) tabletIndications: minutes as needed Coronary artery for Chest pain. disease involving [place] coronary artery of [place] heart with angina pectoris TOPIRAMATE 50 mg [...] left kidney stone. CT was done for [place]'s disease. She does not have a history [...] REVISION 1997 repair and tummy tuck SECTION [id number] COLONOSCOPY 10/25/2019 COLPOSCOPY,CERVIX W/ADJ VAG,W/LOOP BX CONIZATION [...] MD; Location: [facility] Jose M [place] PATIENT HAS A CORONARY ARTERY STENT 2015 [...] file Gets together: Not on file Attends taoism service: Not on file Active member of [...] Social History Narrative Lives at home with Evangelical Preference: Faith Review of Systems Constitutional: Positive for appetite [...] 0/10. Pt preferred language is [place]. Pt. denies fall in last 12 months. Allergies and medications reviewed and updated. documented in this encounter Plan of Treatment Date Type Specialty Care Team Description 07/06/2020 Office Visit Neurology Anum Connor A NP [address] [place] [address] [phone] 07/25/2020 Office Visit Urology Adrián Lindquist M D [address] [facility] [address] [place] [address] [phone] 10/06/2020 Office Visit Cardiology Justo Bolton MD [address] [place] [phone] 10/20/2020 Office Visit Psychiatry Janusz Koch MD [address] [place] [address] lvd. [place], [place] [phone] 01/11/2021 Office Visit Pulmonary Disease Aleida Bennettestebanmario, [address] [place] [address] Health Maintenance Due Date Last [...] Problems Progress 5 lb weight General Yes [place], loss by next Marlee Restrepo MD visit [...] e / Group Dates AETNA - AETNA [id number] 2019-Jose P O BOX Me dicare Adv MANAGED MEDICARE ADV [id number] [place] [address] documented as of this encounter"
--- OUTSIDE RECORDS SUMMARY | 2020-07-21 07:33 | XMS REPORT | Summary of Care ---
:1975 Author Organization [facility] [employer] [facility] Address [address] [place] [address] Care Team Providers Name Role Phone Kaye Gupta MD Primary Care Provider Reason for Visit Reason Comments Appointment Encounter Details Date Type Department Care Team Description 07/06/2020 Telephone [facility] Urology- Shalonda Lutz ENGRAVER PICTURE Appointment [place] [address] [facility] [address] [facility] [address] [place] [address] [place] [address] [phone] Allergies Active Allergy Reactions Severity Noted Date [...] as of this encounter (statuses as of 07/06/2020) Medications Medication Sig Dispensed Refills Start Date [...] 2 Coronary artery (two) days. disease involving [place] coronary artery of [place] heart without angina pectoris, Essential hypertension, Dyslipidemia, [...] 27 mg by 0 Active 27 mg [place] MAGNESIUM mouth 3 (three) (MAG-G) tablet times [...] tabletIndications: mouth daily. Coronary artery disease involving [place] coronary artery of [place] heart with angina pectoris, Essential hypertension diltiazem 120 mg 24 TK 1 C PO QPM 0 01/02/2020 Active hr capsule nitroglycerin Place 1 tablet 1 Bottle 3 02/22/2020 Active (NITROSTAT) 0.4 mg under the tongue sublingual every 5 (five) tabletIndications: minutes as needed Coronary artery for Chest pain. disease involving [place] coronary artery of [place] heart with angina pectoris TOPIRAMATE 50 mg [...] as of this encounter (statuses as of 07/06/2020) Active Problems Problem Noted Date Euthyroid goiter [...] as of this encounter (statuses as of 07/06/2020) Resolved Problems Problem Noted Date Resolved Date Nicotine use disorder 02/08/2019 04/20/2019 Overview: vaping Postprandial vomiting 01/04/2017 01/19/2018 documented as of this encounter (statuses as of 07/06/2020) Immunizations Name Administration Dates Next Due Influenza [...] Telephone Encounter - Nanda Lutz FNP - 07/06/2020 11:04 AM CDTCalled patient to discuss referral for ADVERTISING DESIGNER for ovarian mass per Dr. Lindquist. No answer, no voicemail. documented in this encounter Plan of Treatment Date Type Specialty Care Team Description 07/06/2020 Office Visit Neurology Anum Connor A NP [address] [place] [address] [phone] 07/25/2020 Office Visit Urology Adrián Lindquist M D 22[address] [facility] [address] [place] [phone] 10/06/2020 Office Visit Cardiology Justo Bolton MD [address] [place] [phone] 10/20/2020 Office Visit Psychiatry Janusz Koch MD [address] [place] [address]. [place] [address] [phone] 01/11/2021 Office Visit Pulmonary Disease Nino Bennett DO [address] [place] [phone] Health Maintenance Due Date Last Done Comments [...] Problems Progress 5 lb weight General Yes [place], loss by next Marlee Restrepo MD visit documented as of this encounter Results Not on filedocumented in this encounter Insurance Payer Benefit Plan Subscriber ID Effective Phone Address Typ e / Group Dates AETNA - AETNA [id number] 2019-Prese P O BOX Me dicare Adv MANAGED MEDICARE ADV nt [id number] [place] [address] documented as of this encounter
--- OUTSIDE RECORDS SUMMARY | 2020-07-21 07:34 | XMS REPORT | Summary of Care ---
:1975 Author Organization [facility] Address [address] [place] [address] Care Team Providers Name Role Phone Kaye Gupta MD Primary Care Provider Reason for Visit Reason Comments Orders Encounter Details Date Type Department Care Team Description 07/12/2020 Telephone [facility] CardiologyHoang Sendil K.H., MD Orders [facility] [address] [place] [phone] Allergies Active Allergy Reactions Severity Noted Date [...] as of this encounter (statuses as of 07/17/2020) Medications Medication Sig Dispensed Refills Start Date [...] 2 Coronary artery (two) days. disease involving [place] coronary artery of [place] heart without angina pectoris, Essential hypertension, Dyslipidemia, [...] 27 mg by 0 Active 27 mg [place] MAGNESIUM mouth 3 (three) (MAG-G) tablet times [...] tabletIndications: mouth daily. Coronary artery disease involving [place] coronary artery of [place] heart with angina pectoris, Essential hypertension diltiazem 120 mg 24 TK 1 C PO QPM 0 01/02/2020 Active hr capsule nitroglycerin Place 1 tablet 1 Bottle 3 02/22/2020 Active (NITROSTAT) 0.4 mg under the tongue sublingual every 5 (five) tabletIndications: minutes as needed Coronary artery for Chest pain. disease involving [place] coronary artery of [place] heart with angina pectoris PRIMIDONE 50 mg [...] 2 07/03/20 20 Active MOUTH EVERY DAY ryhkytuhxlnkr-mdrk-ehkzmrcewt Take 1 capsule by 60 capsule 2 0 07/06/2020 Active per capsuleIndications: mouth every 6 (six) Migraine without aura and hours as needed without status migrainosus, (headache). not intractable, Intractable acute post-traumatic headache documented as of this encounter (statuses as of 07/17/2020) Active Problems Problem Noted Date Euthyroid goiter [...] stenosis Atherosclerosis of artery Bulging lumbar disc [place] (mitral incompetence) Polycystic ovarian disease GERD (gastroesophageal reflux disease) Anxiety Agoraphobia Panic disorder HTN (hypertension) Gastric polyp Asthma Overview: As a child Allergic rhinitis documented as of this encounter (statuses as of 07/17/2020) Resolved Problems Problem Noted Date Resolved Date Nicotine use disorder 02/08/2019 04/20/2019 Overview: vaping Postprandial vomiting 01/04/2017 01/19/2018 documented as of this encounter (statuses as of 07/17/2020) Immunizations Name Administration Dates Next Due Influenza [...] this encounter Miscellaneous Notes Telephone Encounter - Justo Bolton MD - 07/15/2020 2:34 PM CDTWill call on Friday07.17.2020 elephone Encounter - Ted Gaffney - 07/12/2020 10:54 AM CDTDr [facility] Pt PCP calling requesting for Peer to Peer Please call ph:[phone] "Private Line" Please advise documented in this encounter Plan of Treatment Date Type Specialty Care Team Description 07/25/2020 Office Visit Urology Adrián Lindquist M D 22[address] [facility] [address] [place], [place] [address] 10/06/2020 Office Visit Cardiology Justo Bolton MD [address] [phone] 10/09/2020 Office Visit Neurology Anum Connor A NP [address] [place] [address] [phone] 10/20/2020 Office Visit Psychiatry Janusz Koch MD [address] [place] [address]. [place], [place] [phone] 01/11/2021 Office Visit Pulmonary Disease Nino Bennett DO [address] [place] [phone] Health Maintenance Due Date Last Done Comments [...] e / Group Dates AETNA - AETNA [id number] 2019-Jose P O BOX Me dicare Adv MANAGED MEDICARE ADV nt [id number] [place] [address] documented as of this encounter
--- OUTSIDE RECORDS SUMMARY | 2020-07-21 07:34 | XMS REPORT | Summary of Care ---
:1975 Author Organization [facility] Address [address] [place] [address] Care Team Providers Name Role Phone Kaye Gupta MD Primary Care Provider Reason for Visit Reason Comments Orders Encounter Details Date Type Department Care Team Description 07/12/2020 Telephone [facility] Endocrinology, Landy Bates MD Orders [address], [address] [place] [address] [place] [address] [phone] Allergies Active Allergy Reactions Severity Noted Date [...] as of this encounter (statuses as of 07/13/2020) Medications Medication Sig Dispensed Refills Start Date [...] 2 Coronary artery (two) days. disease involving [place] coronary artery of [place] heart without angina pectoris, Essential hypertension, Dyslipidemia, [...] 27 mg by 0 Active 27 mg [place] MAGNESIUM mouth 3 (three) (MAG-G) tablet times [...] tabletIndications: mouth daily. Coronary artery disease involving [place] coronary artery of [place] heart with angina pectoris, Essential hypertension diltiazem 120 mg 24 TK 1 C PO QPM 0 01/02/2020 Active hr capsule nitroglycerin Place 1 tablet 1 Bottle 3 02/22/2020 Active (NITROSTAT) 0.4 mg under the tongue sublingual every 5 (five) tabletIndications: minutes as needed Coronary artery for Chest pain. disease involving [place] coronary artery of [place] heart with angina pectoris PRIMIDONE 50 mg [...] 2 07/03/20 20 Active MOUTH EVERY DAY ejwudbswztjlk-ocnk-gvopdleszx Take 1 capsule by 60 capsule 2 0 07/06/2020 Active per capsuleIndications: mouth every 6 (six) Migraine without aura and hours as needed without status migrainosus, (headache). not intractable, Intractable acute post-traumatic headache documented as of this encounter (statuses as of 07/13/2020) Active Problems Problem Noted Date Euthyroid goiter [...] as of this encounter (statuses as of 07/13/2020) Resolved Problems Problem Noted Date Resolved Date Nicotine use disorder 02/08/2019 04/20/2019 Overview: vaping Postprandial vomiting 01/04/2017 01/19/2018 documented as of this encounter (statuses as of 07/13/2020) Immunizations Name Administration Dates Next Due Influenza [...] this encounter Miscellaneous Notes Telephone Encounter - Ted Gaffney - 07/12/2020 11:[address] Solis calling requesting a call back regarding Peer to Peer Please call [phone]" Dr Private Villa Please advise documented in this encounter Plan of Treatment Date Type Specialty Care Team Description 07/25/2020 Office Visit Urology Adrián Lindquist M D 22[address] [facility] [address] [place] [phone] 10/06/2020 Office Visit Cardiology Justo Bolton MD [address] [place] [address] [phone] 10/09/2020 Office Visit Neurology Anum Connor A NP [address] [place] [address] [phone] 10/20/2020 Office Visit Psychiatry Janusz Koch MD [address] [place] [address]. [place] [phone] 01/11/2021 Office Visit Pulmonary Disease Nino Bennett DO [address] [place] [address] Health Maintenance Due Date Last [...] e / Group Dates AETNA - AETNA [id number] 2019-e P O BOX Me dicare Adv MANAGED MEDICARE ADV nt [id number] [place] [address] documented as of this encounter
--- OUTSIDE RECORDS SUMMARY | 2020-07-21 07:35 | XMS REPORT | Summary of Care ---
:1975 Author Organization [facility] Address [address] [place] [address] Care Team Providers Name Role Phone Kaye Gupta MD Primary Care Provider Reason for Visit Reason Comments Orders Encounter Details Date Type Department Care Team Description 07/12/2020 Telephone [facility] CardiologyHoang Sendil K.H., MD Orders [facility] [address] [place] [phone] Allergies Active Allergy Reactions Severity Noted Date [...] as of this encounter (statuses as of 07/18/2020) Medications Medication Sig Dispensed Refills Start Date [...] 2 Coronary artery (two) days. disease involving [place] coronary artery of [place] heart without angina pectoris, Essential hypertension, Dyslipidemia, [...] 27 mg by 0 Active 27 mg [place] MAGNESIUM mouth 3 (three) (MAG-G) tablet times [...] tabletIndications: mouth daily. Coronary artery disease involving [place] coronary artery of [place] heart with angina pectoris, Essential hypertension diltiazem 120 mg 24 TK 1 C PO QPM 0 01/02/2020 Active hr capsule nitroglycerin Place 1 tablet 1 Bottle 3 02/22/2020 Active (NITROSTAT) 0.4 mg under the tongue sublingual every 5 (five) tabletIndications: minutes as needed Coronary artery for Chest pain. disease involving [place] coronary artery of [place] heart with angina pectoris PRIMIDONE 50 mg [...] 2 07/03/20 20 Active MOUTH EVERY DAY tcnugbfdiwnwv-cnot-qcfgmwkmaa Take 1 capsule by 60 capsule 2 0 07/06/2020 Active per capsuleIndications: mouth every 6 (six) Migraine without aura and hours as needed without status migrainosus, (headache). not intractable, Intractable acute post-traumatic headache documented as of this encounter (statuses as of 07/18/2020) Active Problems Problem Noted Date Euthyroid goiter [...] stenosis Atherosclerosis of artery Bulging lumbar disc [place] (mitral incompetence) Polycystic ovarian disease GERD (gastroesophageal reflux disease) Anxiety Agoraphobia Panic disorder HTN (hypertension) Gastric polyp Asthma Overview: As a child Allergic rhinitis documented as of this encounter (statuses as of 07/18/2020) Resolved Problems Problem Noted Date Resolved Date Nicotine use disorder 02/08/2019 04/20/2019 Overview: vaping Postprandial vomiting 01/04/2017 01/19/2018 documented as of this encounter (statuses as of 07/18/2020) Immunizations Name Administration Dates Next Due Influenza [...] Telephone Encounter - Justo Bolton MD - 07/18/2020 9:[address] Solis 07/17/2020 AM. Updated him regarding her cardiac diagnosis and her meds that she is on based on my OV 05/2020. Will fax my note to his office. Reviewed the reasoning of Bouchra, AGUSTÍN and jaya with him in detail. Telephone Encounter - Justo Bolton MD - 07/15/2020 2:34 PM CDTWill call on Friday07.17.2020 elephone Encounter - Ted Gaffney - 07/12/2020 10:[address] [facility] Pt PCP calling requesting for Peer to Peer Please call ph:[phone] "Private Line" Please advise documented in this encounter Plan of Treatment Date Type Specialty Care Team Description 07/25/2020 Office Visit Urology Adrián Lindquist M D 0 [facility] [address] [place], [place] [address] 10/06/2020 Office Visit Cardiology Justo Bolton MD [address] [place] [address] [phone] 10/09/2020 Office Visit Neurology Anum Connor A [address] [place], [place] [phone] 10/20/2020 Office Visit Psychiatry Janusz Koch MD [address] [place], [place] [address]d. [place], [place] [phone] 01/11/2021 Office Visit Pulmonary Disease Nino Bennett DO [address] [place] [phone] Health Maintenance Due Date Last Done Comments [...] e / Group Dates AETNA - AETNA [id number] 2019-Prese P O BOX Me dicare Adv MANAGED MEDICARE ADV nt [id number] [place] [address] documented as of this encounter
[2020-07-21] MEDS ORDERED: COSYNTROPIN 0.25 MG VIAL IV ONE (08:00)
[2020-07-21] MEDS ORDERED: SODIUM CHLORIDE 0.9% 10ML INJ IV ONE (08:00)
[2020-07-21 10:44] VITALS: BP 127/86; TEMP 97.2; O2SAT 97
[2020-07-21 10:48] VITALS: BMI 6889.4
== END 2020-07-21 09:42 | disposition home or self-care (01) ==
LOC: DS 07:10
PROVIDERS: ATTEND Internal Medicine
DX: E27.1 Primary adrenocortical insufficiency (principal); E87.1 Hypo-osmolality and hyponatremia
CPT/HCPCS: 36415; 82533 ×4; 82024; 96372 ×2; J0834

== ENCOUNTER 2021-10-17 07:07 | Day surgery (SDC) | payer OTHER ==
[2021-10-17] MEDS: Ringers Lactate 1,000 ML IV ONE ×2 (08:00→08:42)
[2021-10-17] MEDS ORDERED: propofoL 200 MG/20 ML VIAL IV ONE (08:27)
[2021-10-17] MEDS ORDERED: LIDOCAINE 1% MPF 5 ML VIAL ONE (08:27)
--- NOTE | 2021-10-17 09:04 | ENDO RPT ---
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 TOPICAL ANESTHETIC: none CONSENT: The patient understands the risks and benefits of the procedure and understands that these risks include, but are not limited to: sedation, allergic reaction, infection, perforation and/or bleeding. Alternative means of evaluation and treatment include, among others: physical exam, x-rays, and/or surgical intervention. The patient elects to proceed with this endoscopic procedure. DESCRIPTION OF PROCEDURE: During intra-op preparation period all mechanical medical equipment was checked for proper function. Hand hygiene and appropriate measures for infection prevention was taken. Procedure, possible complications, and alternatives including but not limited to the possibility of bleeding, perforation, tear, infection, sepsis, need for surgery, need for blood transfusion, and anesthesia related complications were explained to the patient. After the risks, benefits and alternatives of the procedure were thoroughly explained, Informed consent was verified, confirmed and timeout was successfully executed by the treatment team. The patient was placed in the left lateral position. The patient was anesthetized with topical anesthesia. Through the anesthetized oropharyngeal area, the scope was passed without any difficulty. The EC-3890Li ([id number]), EG-2990i ([id number]), and Pentax EG-2990i ([id number]) endoscope was introduced through the mouth and advanced to the third portion of the duodenum. Retroflexed views revealed a small hiatal hernia. The gastroscope was then slowly withdrawn and removed. A small hiatal hernia was found Mild gastritis was found in the antrum. Multiple biopsies were obtained and sent to pathology. ADVERSE EVENTS: There were no complications. IMPRESSIONS: 1. Small hiatal hernia 2. Mild gastritis in the antrum, s/p biopsies RECOMMENDATIONS: 1. await biopsy results 2. acid suppression therapy REPEAT EXAM: Kelby Torres Dr eSigned: Kelby Torres Dr 10/17/2021 9:04 AM cc: CPT CODES: ICD9 CODES: PATIENT NAME: Yanci Man MR#: [id number]
--- NOTE | 2021-10-17 09:34 | ENDO RPT ---
[address], [address] COLONOSCOPY PROCEDURE REPORT EXAM DATE: 10/17/2021 PATIENT NAME: Yanci Man MR #: [id number] BIRTHDATE: 1975 ATTENDING: Kelby Torres Dr STATUS: outpatient DRIVER RECRUITER: Lindsey Goldberg RN and Vivi Wetzel INDICATIONS: The patient is a 46 yr old Female here for a colonoscopy due to RLQ / periumbilical abdominal pain, change in bowel habits, unexplained chronic diarrhea, constipation, personal history of colon polyps, family history of colon cancer - nile / Sánchez, and family history of colon polyps - father PROCEDURE PERFORMED: Colonoscopy with biopsy MEDICATIONS: Per Anesthesia. ESTIMATED BLOOD LOSS: None CONSENT: The patient understands the risks and benefits of the procedure and understands that these risks include, but are not limited to: sedation, allergic reaction, infection, perforation and/or bleeding. Alternative means of evaluation and treatment include, among others: physical exam, x-rays, and/or surgical intervention. The patient elects to proceed with this endoscopic procedure. DESCRIPTION OF PROCEDURE: During intra-op preparation period all mechanical medical equipment was checked for proper function. Hand hygiene and appropriate measures for infection prevention was taken. Procedure, possible complications, alternatives including, but not limited to possibility of bleeding, perforation, tear, infection, sepsis, need for surgery, need for blood transfusion, were explained to the patient. After the risks, benefits and alternatives of the procedure were thoroughly explained, Informed consent was verified, confirmed and timeout was successfully executed by the treatment team. The patient was placed in the left lateral position. A digital rectal exam was performed and revealed no abnormalities of the rectum. After appropriate level of anesthesia, the scope was passed. The EG-2990i ([id number]) and EC-3890Li ([id number]) endoscope was introduced through the anus and advanced to the cecum, which was identified by both the appendix and ileocecal valve. The quality of the prep was fair. The instrument was then slowly withdrawn as the colon was fully examined. Scope withdrawal time was 8 minutes. COLON FINDINGS: Random biopsies of the right colon / left colon / rectum obtained with history of chronic unexplained diarrhea. Small internal hemorrhoids were found. Retroflexed views revealed small hemorrhoids. The scope was then completely withdrawn from the patient and the procedure terminated. ADVERSE EVENTS: There were no complications. IMPRESSIONS: 1. Random biopsies of the right colon / left colon / rectum obtained with history of chronic unexplained diarrhea 2. Small internal hemorrhoids 2. Intubation to cecum RECOMMENDATIONS: 1. await biopsy results 2. fiber rich diet RECALL: Return in 3 year(s) for Colonoscopy. Kelby Torres Dr eSigned: Kelby Torres Dr 10/17/2021 9:33 AM cc: CPT CODES: ICD9 CODES: PATIENT NAME: Yanci Man MR#: [id number]
[2021-10-17 09:36] VITALS: TEMP 97.6
[2021-10-17 10:05] VITALS: BP 126/79; O2SAT 96
== END 2021-10-17 10:00 | disposition home or self-care (01) ==
LOC: OR 07:07
PROVIDERS: ATTEND Internal Medicine Gastroenterology
PROC: 0DBF8ZX Excision of Right Large Intestine, Via Natural or Artificial Opening Endoscopic, Diagnostic (ICD-10-PCS; 2021-10-17)
PROC: 0DB68ZX Excision of Stomach, Via Natural or Artificial Opening Endoscopic, Diagnostic (ICD-10-PCS; 2021-10-17)
PROC: 0DBG8ZX Excision of Left Large Intestine, Via Natural or Artificial Opening Endoscopic, Diagnostic (ICD-10-PCS; principal; 2021-10-17 08:00)
PROC: 0DBP8ZX Excision of Rectum, Via Natural or Artificial Opening Endoscopic, Diagnostic (ICD-10-PCS; 2021-10-17 08:00)
DX: K29.50 Unspecified chronic gastritis without bleeding (principal); R19.4 Change in bowel habit; R19.7 Diarrhea, unspecified; K59.09 Other constipation; Z86.010 Personal history of colon polyps; Z80.0 Family history of malignant neoplasm of digestive organs; K64.8 Other hemorrhoids; Z20.822 Contact with and (suspected) exposure to COVID-19
CPT/HCPCS: 88312; 88305; 45380; 43239; U0003; J2704; J7120

== ENCOUNTER 2022-08-26 06:46 | Day surgery (SDC) | payer OTHER ==
[2022-08-26 07:25] LABS: SARS-CoV-2 Antigen Rapid Res Negative (Negative)
--- NOTE | 2022-08-26 07:47 | RAD REPORT ---
EXAM DESCRIPTION: Arnaud Issa (2 Views)08/26/2022 7:39 am CLINICAL HISTORY: Preop COMPARISON: 2017 FINDINGS: The lungs appear clear of acute infiltrate. The heart is normal size IMPRESSION: No acute abnormalities displayed
[2022-08-26 07:50] LABS: Albumin 3.2 g/dL (3.4-5.0); Bilirubin Direct 0.1 mg/dL (0-0.2); Bilirubin Total 0.3 mg/dL (0.2-1.0); Potassium 4.1 mmol/L (3.5-5.1); Protein, Total 6.5 g/dL (6.4-8.2)
[2022-08-26] MEDS ORDERED: NA CHLORIDE 0.9% 1,000 ML ONE ×2 (08:14→11:03)
[2022-08-26] MEDS ORDERED: MIDAZOLAM HCL 2 MG/2 ML INJ ONE (08:27)
[2022-08-26] MEDS ORDERED: ROCURONIUM 50 MG/5 ML VIAL IV ONE (08:27)
[2022-08-26] MEDS ORDERED: propofoL 200 MG/20 ML VIAL IV ONE (08:27)
[2022-08-26] MEDS ORDERED: FENTANYL CITR 100 MCG/2 ML ONE (08:27)
[2022-08-26] MEDS ORDERED: NA CHLORIDE 0.9% 50 ML ONE (08:29)
[2022-08-26] MEDS ORDERED: CEFOXITIN SODIUM 1 GM/VIAL ONE (08:29)
[2022-08-26] MEDS ORDERED: ONDANSETRON 4 MG/2 ML VIAL ONE (08:32)
[2022-08-26] MEDS ORDERED: LIDOCAINE 2% MPF 5 ML VIAL ONE (08:32)
[2022-08-26] MEDS ORDERED: ETOMIDATE 20 MG/10 ML VIAL IV ONE (08:43)
[2022-08-26] MEDS ORDERED: Phenylephrine HCl 10 MG/ML 1 ML VIAL ONE (08:57)
--- NOTE | 2022-08-26 09:59 | P.BOP ---
Preoperative diagnosis: Acute cholecystitis , RUQ intractable abd pain, Gallbladder mass, umb.herni Postoperative diagnosis: same Primary procedure: Laparoscopic Cholecystectomy Secondary procedure: Open repair of umbilical hernia Estimated blood loss: <10cc Specimen: gb Findings: inflammed GB wall, umbilical hernia Anesthesia: General Complications: None Drain(s): VALERIE drain Transferred to: Recovery Room Condition: Good
[2022-08-26] MEDS ORDERED: GLYCOPYRROLATE 0.2 MG/ML SYR ONE (10:07)
[2022-08-26] MEDS ORDERED: KETOROLAC 30 MG/ML INJ ONE (10:07)
[2022-08-26] MEDS ORDERED: NEOSTIGMINE 1 MG/ML -10 ML VIAL ONE (10:09)
[2022-08-26] MEDS ORDERED: HYDROMORPHONE HCL 1 MG/ML INJ ONE ×3 (10:33→11:22)
[2022-08-26] MEDS ORDERED: MEPERIDINE HCL 25 MG/ML SYR ONE (10:46)
[2022-08-26] MEDS ORDERED: MEPERIDINE HCL 50 MG/ML ONE (11:06)
[2022-08-26] MEDS ORDERED: PROMETHAZINE INJ 25 MG/ML AMP ONE (11:06)
--- NOTE | 2022-08-26 11:53 | OP ---
Date of Procedure: 08/26/2022 Surgeon: Jim Maynard MD Preoperative Diagnoses: Intractable right upper quadrant abdominal pain, acute cholecystitis and gal lbladder fundus mass. Indications: This is a case of a female, who come to us with right upper quadrant abdominal pain, ex tensive workup including ultrasound, CT scans, HIDA scans. Patient has tried to modify her diet, has followed the doctor's recommendations but still have this abdominal pain and during one of the studi es, she was found to have a fundus mass that when discussed with her and explained to her, they say t hat it may represent adenomyomatosis, but also could be a malignancy. So obviously she does not want to wait. She does not want to repeat any ultrasound or CAT scan. She wants her gallbladder out. S he has medical history also history of morbid obesity. She was advised to see accounts receivable collector duncan t she had seen before. She was advised to see her primary doctor for any other alternatives, but she is still convinced she wants that out because we cannot tell her otherwise if it is a malignancy or not 100%. She discussed the case also with her primary doctor. She was advised the importance of lo sing weight. I have advised the importance to stop smoking. She has a family history of ovarian can cer, breast cancer, colon cancer, urinary cancer and she is convinced she wants the gallbladder out f or biopsy. The patient also found to have an umbilical hernia. So the benefits, alternatives, and r isks of laparoscopic, possible open cholecystectomy with umbilical hernia repair fully explained, whi ch include, but not limited to, infection, bleeding, damage to adjacent structures, anesthesia compli cation, choledocholithiasis, bile leak, recurrence of the hernia, OR, and even . She also under stands this may not relieve any symptoms. She might need more than one surgical intervention. She u nderstood and signed a consent. Description Of Procedure: Patient was brought to the operating room and placed in supine position. Anesthesia was done without complication. Abdominal area was prepped and draped in a sterile fashion . Patient had history of a tummy tuck in the past. Due to the large area of the abdomen, a supraumb ilical incision was made, making sure we protect the umbilical skin all the time. The incision was c arried down to fascia, which was opened under direct vision. Peritoneum was encountered, opened unde r direct vision. Vicryl #1 placed inside the fascia. Nataliya trocar was carefully introduced after i dentified the hernia sac and making it part of the incision. We just had incarcerated omentum in the hernia sac that was reduced after full inspection. After we put a Vicryl #1 inside the fascia, the Nataliya trocar was carefully introduced. Pneumoperitoneum was obtained. I placed 3 more trocars, 5 m m, each one of them, 1 at the epigastric area and 2 to the right upper quadrant using the same techni que under direct visualization. We noticed the gallbladder wall to be edematous. I do not see any a reas of tumor in the liver or tumor edge going outside of the wall. At that moment, I proceeded to p lace a grasper in the fundus of the gallbladder, another grasper in the infundibulum, retracting the gallbladder in the inferolateral fashion exposing the triangle of Calot, obtaining critical view. Cy stic duct and cystic artery were clearly isolated and freed circumferentially and a connection betwee n those and the gallbladder was clearly identified. I proceeded to ligate those by using 3 clips pro ximal and 1 clip distal with ligation in the middle. Same was done with the cystic artery. No bile leak. No bleeding. The gallbladder was removed from the liver using Bovie cauterizer and removed fr om abdominal cavity using an Endo catch through the umbilical incision. Due to the inflammation in t hat area, I used at one of the trocar site to just leave a VALERIE drain in that region in the right upper quadrant. This was secured in place with 3-0 nylon and then we proceeded to remove the trocars unde r direct vision after assuring no bile leak and no bleeding and gallbladder fossa intact. At that mo ment, I proceeded to remove the trocars under direct vision. Deflated pneumoperitoneum, closed the f ascia and the umbilical hernia with #1 Vicryl. Irrigated subcutaneous tissue, closed that with 3-0 c hromic and the skin with kwame. Sponge count and instrument counts were correct. Patient tolerate d the procedure well. Patient was sent to Recovery in stable condition. GEMMA/NATANAEL Voice ID: [id number] Report ID: [id number]
[2022-08-26] MEDS ORDERED: NALOXONE 0.4 MG/ML VIAL ONE (11:54)
--- NOTE | 2022-08-26 11:58 | DS ---
Diagnoses: Acute cholecystitis, umbilical hernia, right upper quadrant abdominal pain, and gallbladd er wall tumor. Procedure: Laparoscopic cholecystectomy and umbilical hernia repair. Disposition: Home. Activity: As tolerated. No heavy lifting. Plan: Follow up in my office in 1 week. Call for appointment at [phone]. Keep area dry for until she see us back in our clinic. The patient encouraged ambulation. Also encouraged smoking cessation . GEMMA/NATANAEL Voice ID: [id number] Report ID: [id number]
[2022-08-26] MEDS ORDERED: HYDROCODONE/APAP 5/325 MG TAB PO ONE (12:18)
[2022-08-26] MEDS ORDERED: HYDROCODONE/APAP 5/325 MG TAB ONE (12:35)
[2022-08-26 13:18] VITALS: BP 111/70; TEMP 96.7
[2022-08-26 13:24] VITALS: O2SAT 93
--- NOTE | 2022-08-26 14:08 | EKG ---
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
== END 2022-08-26 13:15 | disposition home or self-care (01) ==
LOC: OR 06:46
PROVIDERS: ATTEND Surgery
PROC: 0FT44ZZ Resection of Gallbladder, Percutaneous Endoscopic Approach (ICD-10-PCS; principal; 2022-08-26 08:30)
DX: K81.1 Chronic cholecystitis (principal); K42.9 Umbilical hernia without obstruction or gangrene; E66.01 Morbid (severe) obesity due to excess calories; F17.210 Nicotine dependence, cigarettes, uncomplicated; Z80.0 Family history of malignant neoplasm of digestive organs; Z80.3 Family history of malignant neoplasm of breast; Z80.41 Family history of malignant neoplasm of ovary; Z80.59 Family history of malignant neoplasm of other urinary tract organ; Z20.822 Contact with and (suspected) exposure to COVID-19
CPT/HCPCS: 93005; 80048; 36415; 82150; 80076; 88304; 83690; 71046; 87811; 47562; J2710; J2550; J2310; J2370; J2250; J3010; J2175 ×2; J1170 ×3; J7030 ×2; J0694; J2405; J2001; J2704